=== PATIENT | male | born 1935 | race Caucasian/White ===

== ENCOUNTER 2018-01-03 21:44 | Inpatient (IN) | payer MEDICARE ==
[~2018-01-03] VITALS: Ht 182.9 cm; Wt 112.9 kg
[~2018-01-03 21:44] MED LIST: ADULT ASPIRIN81 MG PO; AMBIEN10 MG PO; AMLODIPINE BESYL5 MG PO; CARDURA1 MG PO; CATAPRES TTS TD; CEFTIN250 MG PO; CLONIDINE HCL0.3 MG PO; DEXAMETHASONE SOD PHOS INJ 4 MG/ML VIAL ONE; DOXAZOSIN MESYLA2 MG PO; FLOMAX0.4 MG PO; HCTZ PO; HYDRALAZINE HCL25 MG PO; HYDROCHLOROTHIA25 MG PO; LIDOCAINE HCL 2% LOCAL INJ 5 ML SDV VIAL INJ ONE; LOSARTAN POTAS100 MG PO; NEXIUM40 MG PO; NORCO 10-325 T1 EACH PO; PLAVIX75 MG PO; PROPOFOL IV EMULSION 10 MG/ML 20 ML VIAL ONE; PROSCAR5 MG PO; ROCURONIUM BROMIDE 10 MG/ML 5ML VIAL ONE; SEVOFLURANE INHAL SOLN 250 ML PEN BTL ONE; TYLENOL325 MG PO; WARFARIN SODIUM5 MG PO; Z.0.AMBIEN10 MG PO; Z.0.CARDURA1 MG PO; Z.0.COZAAR100 MG PO; Z.0.HYDRALAZINE HCL2 PO; Z.0.NEXIUM40 MG PO; Z.0.VICODIN 5-5001 E PO; Z.0.ZOCOR20 MG PO; ZOCOR20 MG PO
[2018-01-03] MEDS ORDERED: ACETAMINOPHEN 1000 MG/100 ML IV STA (21:54)
[2018-01-03] MEDS ORDERED: GABAPENTIN100 MG PO (22:20)
[2018-01-03] MEDS ORDERED: LASIX20 MG PO (22:21)
[2018-01-03] MEDS ORDERED: TIZANIDINE HCL4 MG PO (22:22)
[2018-01-03] MEDS ORDERED: ULTRAM50 MG PO (22:23)
[2018-01-03] MEDS ORDERED: NAMENDA10 MG PO (22:25)
[2018-01-03 22:29] LABS: BASOPHILS % 0.1 % (0.0-1.0); EOSINOPHILS % 0.1 % (0.0-6.0); HEMATOCRIT 41.1 % (38.2-49.6); HEMOGLOBIN 13.8 g/dL (14.0-18.0); LYMPHOCYTES # (AUTO) 0.3 (1.0-3.2); LYMPHOCYTES % 3.6 % (18.0-39.1); MEAN CORPUSCULAR HGB CONC 33.6 g/dL (31-35); MEAN CORPUSCULAR VOLUME 86.3 fL (81-99); MONOCYTES # (AUTO) 0.5 (0.2-0.8); MONOCYTES % 5.7 % (4.4-11.3); NEUTROPHILS # (AUTO) 8.1 (2.1-6.9); NEUTROPHILS % 90.4 % (38.7-80.0); PLATELET COUNT 126 x10e3/uL (140-360); RED BLOOD COUNT 4.76 x10e6/uL (4.3-5.7); RED CELL DISTRIBUTION WIDTH 14.4 % (11.7-14.4)
[2018-01-03 22:34] LABS: INR 3.55; PROTHROMBIN TIME 33.4 seconds (11.9-14.5)
[2018-01-03 22:35] LABS: PARTIAL THROMBOPLASTIN TIME 44.2 seconds (23.8-35.5)
[2018-01-03 22:42] LABS: ALBUMIN 3.5 g/dL (3.5-5.0); ANION GAP 13.9 mmol/L (8-16); CALCIUM 9.8 mg/dL (8.4-10.2); CREATININE, SERUM 1.23 mg/dL (0.72-1.25)
[2018-01-03 22:47] LABS: POTASSIUM 2.9 mmol/L (3.5-5.1)
[2018-01-03] MEDS ORDERED: KCL 20MEQ/.9 SOD CHL 1,000 ML IV ONE (23:00)
[2018-01-03 23:03] LABS: CLARITY,URINE SL CLOUDY (CLEAR); COLOR,URINE ORANGE (YELLOW)
[2018-01-03 23:04] LABS: BILIRUBIN,URINE 2+ (NEGATIVE); KETONES,URINE NEGATIVE (NEGATIVE); LEUKOCYTE ESTERASE ,URINE TRACE (NEGATIVE); NITRITE,URINE NEGATIVE (NEGATIVE); PROTEIN,URINE DIPSTICK 1+ (NEGATIVE); URINE UROBILINOGEN 4 mg/dL (0.2 - 1)
[2018-01-03 23:06] LABS: BACTERIA,URINE FEW /HPF; EPITHELIAL CELLS,URINE FEW /LPF; MUCUS,URINE MODERATE (RARE); RBC,URINE 0-5 /HPF (0-5)
[2018-01-04] VITALS (28 sets, daily range): BP systolic 105–136; BP diastolic 61–81
--- NOTE | 2018-01-04 00:06 | Diagnostic Imaging Report ---
EXAM: CT ABDOMEN AND PELVIS with IV CONTRAST DATE: 01/03/2018 9:52 PM Time stamp on Exam: 2317 hours INDICATION: Right-sided abdominal pain, fevers COMPARISON: None TECHNIQUE: The abdomen and pelvis were scanned using a multidetector helical scanner. Coronal and sagittal reformations were obtained. Routine protocol performed. IV Contrast: 100 cc Isovue-370 Oral Contrast: Water CTDIvol has been reviewed. It is below the limits set by the Radiation Protocol Committee (RPC). FINDINGS: LOWER THORAX: Small left pleural effusion and mild bibasilar atelectasis. LIVER: No masses BILIARY: Cholelithiasis with mild right upper quadrant inflammation. The common bile duct is dilated to 1.2 cm and there is mild intrahepatic biliary dilation. SPLEEN: No masses PANCREAS: No masses ADRENALS: No nodules KIDNEYS: Symmetric perfusion. No enhancing masses. No hydronephrosis. Simple cyst measuring 4.5 cm at the lateral aspect of the right kidney interpolar region. Simple cortical cyst measuring 1.7 cm posterior aspect of the left kidney interpolar region. There is a 5 mm stone in the left mid ureter resulting in minimal hydroureteronephrosis and perinephric fat stranding. GI TRACT: No distention, wall thickening or evidence of obstruction. Sigmoid colon diverticulosis without CT findings of acute diverticulitis. Normal appendix. VESSELS: Advanced atherosclerotic changes of the abdominal aorta without aneurysm. PERITONEUM/RETROPERITONEUM: Trace free pelvic fluid. LYMPH NODES: No lymphadenopathy REPRODUCTIVE ORGANS: The prostate is enlarged to 7.4 cm in transverse diameter. BLADDER: Decompressed by Kumar catheter. SOFT TISSUES: Unremarkable BONES: No suspicious bone lesions. IMPRESSION: Cholelithiasis with mild inflammation in the right upper quadrant. The common bile duct is dilated and there is mild intrahepatic biliary dilation. Findings suggests choledocholithiasis and possible acute cholecystitis. There is a 5 mm stone in the left mid ureter resulting in minimal hydroureteronephrosis. Signed by: Dr. Maryam Batres M.D. on 01/04/2018 12:03 AM
--- NOTE | 2018-01-04 00:08 | Diagnostic Imaging Report ---
EXAM: CHEST SINGLE (PORTABLE), AP 1 view INDICATION: Fever, shortness of breath COMPARISON: AP view of the chest December 15, 2014 FINDINGS: LINES/TUBES: Several position of left approach single lead cardiac device. LUNGS: Mild bibasilar atelectasis. PLEURA: Small left pleural effusion. HEART AND MEDIASTINUM: Stable appearance. Stable median sternotomy wires. BONES AND SOFT TISSUES: No acute findings. IMPRESSION: Small left pleural effusion with adjacent atelectasis. Signed by: Dr. Maryam Batres M.D. on 01/04/2018 12:05 AM
[2018-01-04] MEDS: PIPER-TAZ 3.375 GM 50 ML IV SCH ×4 (01:33→21:28)
[2018-01-04] MEDS: METRONIDAZOLE 500MG/NS 100ML 100 ML IV SCH ×5 (01:33→23:00)
[2018-01-04] MEDS: KCL 20MEQ/.9 SOD CHL 1,000 ML IV SCH ×2 (01:33→14:30)
[2018-01-04] MEDS ORDERED: SODIUM CHLORIDE 0.9% 250ML 250 ML ONE (03:23)
--- NOTE | 2018-01-04 05:28 | Consultation ---
DATE OF CONSULTATION: January 04, 2018 REFERRING PHYSICIANS: Dr. Stern/Dr. Garner. REASON FOR CONSULT: Atrial fibrillation and elevated INR, preoperative clearance. HISTORY OF PRESENT ILLNESS: Mr. Godinez is an 82-year-old gentleman with past medical history as listed below, who presented with complaints of abdominal pain and fever. Patient states that he started experiencing abdominal pain about 2 days back, going around his abdomen. He was a little nauseous and apparently had a fever. No vomiting or diarrhea. He was noted to have gallstones and scheduled to have possible EGD and ERCP. His INR was also elevated. He has had a history of pacemaker. Patient normally follows with Dr. Fernando Cantu. REVIEW OF SYMPTOMS CONSTITUTIONAL: Has fatigue and weakness. HEENT: No headache, blurring of vision, seizures, or syncope. CARDIOVASCULAR: No chest pain, dyspnea, orthopnea or PND. RESPIRATORY: No cough. Had fever. No expectoration. GI: Had abdominal pain and nausea. No vomiting or diarrhea. : No dysuria, frequency, or incontinence. ALLERGIES: LENORE INHIBITORS. MEDICATIONS: See list. PAST MEDICAL HISTORY 1. History of hypertension. 2. History of atrial fibrillation. 3. History of CAD and CABG. 4. History of nephrolithiasis. 5. History of CVA. 6. History of CHF. 7. History of dementia. PAST SURGICAL HISTORY 1. History of CABG. 2. History of permanent pacemaker insertion, apparently had it 2 or 3 years back here at [facility] by Dr. Cantu. SOCIAL HISTORY: Does not smoke or drink. FAMILY HISTORY: Noncontributory. PHYSICAL EXAMINATION GENERAL: Moderately built and nourished gentleman, awake, alert, not in any obvious distress. VITALS: Heart rate is 60, blood pressure 111/55, respiratory rate 16, and temperature is 97.9. HEENT: Atraumatic. NECK: No JVD, bruit, thyromegaly, or lymphadenopathy. CARDIOVASCULAR: First and second heart sounds heard. No murmurs, rubs, or gallops appreciated. CHEST: Decreased air entry at the bases. Midline surgical scar. No adventitious sounds appreciated. Pacemaker generator to left upper chest. ABDOMEN: Soft. Mild umbilical and right upper quadrant tenderness. EXTREMITIES: No edema. LABS: WBC is 8.9, hemoglobin is 13.8, hematocrit 41.1, and platelets are 126,000. Sodium is 138, potassium 2.9, chloride 101, bicarb is 26, BUN is 24, creatinine 1.2, and glucose 140. Lactic acid is 22.5. Total bilirubin is 5.0, AST is 133, ALT is 139, and alkaline phosphatase 112. CT abdomen and pelvis shows cholelithiasis with mild inflammation of right upper quadrant. Common bile duct is dilated. There is mild intrahepatic biliary dilatation, a 5-mm stone in the mid ureter. Chest x-ray: Small left pleural effusion and adjacent atelectasis. IMPRESSIONS 1. Abdominal pain/cholelithiasis. 2. Deranged liver function tests. 3. History of coronary artery bypass grafting. 4. History of permanent pacemaker insertion. 5. Atrial fibrillation. 7. Elevated international normalized ratio. 8. History of hypertension. 9. Nephrolithiasis. 10. History of dementia. 11. Hypokalemia. PLAN 1. Reportedly there are plans to do an ERCP. 2. He has been given FFPs to reverse his elevated INR. 3. Get EKG. 4. Get echocardiogram to assess LV function and valvular function. 5. Replace potassium. 6. Hold warfarin. 7. Further cardiac workup depending on clinical course. Discussed my impression, plan, and management with patient. As always, I appreciate and thank you very much for your referral. Job#: [id number]
[2018-01-04] MEDS ORDERED: FUROSEMIDE INJ 10 MG/ML 4 ML VIAL IV ONE (06:30)
[2018-01-04 07:08] LABS: BASOPHILS % 0.3 % (0.0-1.0); EOSINOPHILS % 0.1 % (0.0-6.0); HEMATOCRIT 34.3 % (38.2-49.6); HEMOGLOBIN 11.5 g/dL (14.0-18.0); LYMPHOCYTES # (AUTO) 0.6 (1.0-3.2); MEAN CORPUSCULAR HEMOGLOBIN 29.4 pg (28-32); MEAN CORPUSCULAR HGB CONC 33.5 g/dL (31-35); MEAN CORPUSCULAR VOLUME 87.7 fL (81-99); MONOCYTES # (AUTO) 0.5 (0.2-0.8); MONOCYTES % 6.6 % (4.4-11.3); NEUTROPHILS # (AUTO) 6.7 (2.1-6.9); NEUTROPHILS % 85.6 % (38.7-80.0); PLATELET COUNT 102 x10e3/uL (140-360); RED BLOOD COUNT 3.91 x10e6/uL (4.3-5.7); RED CELL DISTRIBUTION WIDTH 14.7 % (11.7-14.4)
--- NOTE | 2018-01-04 07:11 | Diagnostic Imaging Report ---
EXAM: XR CHEST 1 VIEW DATE: 01/04/2018 6:18 AM INDICATION: Shortness of breath COMPARISON: 01/03/2018 FINDINGS: Lines and Tubes: Sternotomy wires left chest wall pacemaker, stable. Heart and Mediastinum: Heart enlarged. Lungs and Pleura: Mild to moderate edema with small to moderate left effusion. Bones and Soft Tissues: No acute findings. IMPRESSION: 1. Volume overload with left effusion. Superimposed left basilar pneumonia possible. Signed by: Dr. Kofi Herbert MD on 01/04/2018 7:08 AM
[2018-01-04 07:43] LABS: BAND NEUTROPHILS % (MANUAL) 3 %; LYMPHOCYTES % (MANUAL) 9 % (19-48); MONOCYTES % (MANUAL) 7 % (3.4-9.0); NEUTROPHILS % (MANUAL) 81 % (40-74)
[2018-01-04 07:44] LABS: PLATELET ESTIMATE SLIGHTLY DECREASED; PLATELET MORPHOLOGY COMMENT NORMAL; RBC MORPHOLOGY COMMENT NORMAL
[2018-01-04 07:46] LABS: INR 1.93; PROTHROMBIN TIME 20.7 seconds (11.9-14.5)
[2018-01-04 07:47] LABS: PARTIAL THROMBOPLASTIN TIME 43.9 seconds (23.8-35.5)
[2018-01-04] MEDS ORDERED: PHYTONADIONE 10 MG/ML AMP IV STA (07:50)
[2018-01-04 07:55] LABS: ALANINE AMINOTRANSFERASE 111 IU/L (0-55); ALBUMIN 3.2 g/dL (3.5-5.0); ALKALINE PHOSPHATASE 95 IU/L (40-150); ANION GAP 12.2 mmol/L (8-16); BLOOD UREA NITROGEN 20 mg/dL (7-26); BUN/CREATININE RATIO 21 (6-25); CALCIUM 9.2 mg/dL (8.4-10.2); CARBON DIOXIDE 27 mmol/L (22-29); CHLORIDE 102 mmol/L (98-107); CREATININE, SERUM 0.95 mg/dL (0.72-1.25); EST GLOMERULAR FILTRATION RATE > 60 ML/MIN (60-); GLUCOSE 135 mg/dL (74-118); POTASSIUM 3.2 mmol/L (3.5-5.1); SODIUM 138 mmol/L (136-145)
[2018-01-04] MEDS ORDERED: ALBUTEROL/IPRATROPIUM 3 ML NEB ONE (08:00)
[2018-01-04] MEDS ORDERED: SODIUM CHLORIDE 0.9% 100 ML ONE (08:07)
[2018-01-04] MEDS: MORPHINE SULFATE 2 MG/ML SYR IV PRN ×2 (08:12→21:40)
[2018-01-04] MEDS: ONDANSETRON HCL INJ 2 MG/ML VIAL IV PRN ×2 (08:13→21:40)
[2018-01-04] MEDS ORDERED: SODIUM CHLORIDE 0.9% 100 ML 100 ML IV ONE (08:15)
[2018-01-04] MEDS ORDERED: POTASSIUM CHLORIDE 10MEQ/100ML 400 ML IV ONE (09:00)
[2018-01-04] MEDS ORDERED: IOPAMIDOL 300MG/ML 50ML INFUS..BTL IV ONE (09:11)
[2018-01-04] MEDS ORDERED: ACETAMINOPHEN 1000 MG/100 ML 100 ML IV ONE (09:46)
[2018-01-04] MEDS ORDERED: PHYTONADIONE 10MG/ML 20 MG in SODIUM CHLORIDE 0.9% 50ML 50 ML IV ONE (10:15)
[2018-01-04] MEDS ORDERED: ACETAMINOPHEN 1000 MG/100 ML IV STA (10:25)
[2018-01-04] MEDS ORDERED: GLUCAGON FOR INJ 1 MG VIAL ONE (10:48)
[2018-01-04] MEDS ORDERED: FENTANYL CITRATE/PF 100MCG/2 ML INJ ONE (12:46)
[2018-01-04] MEDS ORDERED: INDOMETHACIN 50 MG SUPP.RECT RC ONE (14:00)
--- NOTE | 2018-01-04 14:52 | Operative Report ---
DATE OF PROCEDURE: January 04, 2018 PROCEDURES PERFORMED: Endoscopic retrograde cholangiopancreatography with endoscopic retrograde sphincterotomy, balloon sweep x2, and stent insertion. REFERRING PHYSICIAN: Dr. Nakul Garner INDICATIONS FOR PROCEDURE: Ascending cholangitis. MEDICATION: Patient was done under general endotracheal anesthesia. Please see anesthesiologist note. PROCEDURE IN DETAIL: With the patient in the prone position, the flexible fiberoptic Olympus side-viewing scope was advanced all the way to the second portion of the duodenum. The ampulla was identified and pus was noted to be oozing out from the ampullary orifice. It was cannulated with ease, and a cholangiogram was carried out revealing filling defects in the distal common bile duct. An ERS was carried out in the usual fashion and the balloon sweep was carried out x2 with some thick bile and possibly some debris, but no obvious stones were noted. A size 10/5 biliary stent was then inserted in the common bile duct in the usual fashion. Position of stent was documented fluoroscopically. Patient tolerated the procedure well. IMPRESSION: 1. Pus oozing from ampullary orifice. 2. Filling defects in distal common bile duct on cholangiogram. 3. Endoscopic retrograde sphincterotomy with balloon sweep x2. 4. A size 10/5 biliary stent inserted in common bile duct. Positioning was documented fluoroscopically. Patient tolerated the procedure well. Findings discussed with Dr. Harrison Her. Job#: [id number] cc:MD NAKUL MALONE MD
[2018-01-04 17:59] LABS: POTASSIUM 3.2 mmol/L (3.5-5.1); SODIUM 143 mmol/L (136-145)
[2018-01-04 18:00] LABS: ANION GAP 15.2 mmol/L (8-16); BLOOD UREA NITROGEN 25 mg/dL (7-26); BUN/CREATININE RATIO 27 (6-25); CARBON DIOXIDE 26 mmol/L (22-29); CHLORIDE 105 mmol/L (98-107); CREATININE, SERUM 0.91 mg/dL (0.72-1.25); EST GLOMERULAR FILTRATION RATE > 60 ML/MIN (60-); GLUCOSE 150 mg/dL (74-118)
[2018-01-04] MEDS ORDERED: POTASSIUM CHLORIDE 20 MEQ TAB CR PO NR (18:05)
[2018-01-04] MEDS ORDERED: SODIUM CHLORIDE 0.9% 50ML 50 ML ONE (18:54)
[2018-01-04] MEDS ORDERED: IOPAMIDOL 370 MG/ML 200 ML INFUS..BTL INJ ONE (18:55)
[2018-01-05] VITALS (27 sets, daily range): BP systolic 105–151; BP diastolic 59–108
[2018-01-05] MEDS: KCL 20MEQ/.9 SOD CHL 1,000 ML IV SCH ×2 (01:08→09:15)
[2018-01-05] MEDS: ONDANSETRON HCL INJ 2 MG/ML VIAL IV PRN (02:41)
[2018-01-05] MEDS: MORPHINE SULFATE 2 MG/ML SYR IV PRN ×3 (02:41→16:44)
[2018-01-05] MEDS: HYDROMORPHONE 1MG/1ML INJ IV PRN ×2 (04:27→11:48)
[2018-01-05] MEDS: PIPER-TAZ 3.375 GM 50 ML IV SCH ×3 (05:17→21:29)
[2018-01-05 05:19] LABS: BASOPHILS % 0.1 % (0.0-1.0); HEMATOCRIT 35.8 % (38.2-49.6); HEMOGLOBIN 11.4 g/dL (14.0-18.0); LYMPHOCYTES # (AUTO) 0.7 (1.0-3.2); LYMPHOCYTES % 8.9 % (18.0-39.1); MEAN CORPUSCULAR HEMOGLOBIN 29.1 pg (28-32); MEAN CORPUSCULAR HGB CONC 31.8 g/dL (31-35); MEAN CORPUSCULAR VOLUME 91.3 fL (81-99); MONOCYTES # (AUTO) 0.8 (0.2-0.8); MONOCYTES % 9.7 % (4.4-11.3); NEUTROPHILS # (AUTO) 6.4 (2.1-6.9); NEUTROPHILS % 79.8 % (38.7-80.0); PLATELET COUNT 102 x10e3/uL (140-360); RED BLOOD COUNT 3.92 x10e6/uL (4.3-5.7)
[2018-01-05] MEDS: METRONIDAZOLE 500MG/NS 100ML 100 ML IV SCH ×3 (05:26→18:26)
[2018-01-05 05:44] LABS: ALANINE AMINOTRANSFERASE 95 IU/L (0-55); ALBUMIN 2.9 g/dL (3.5-5.0); ALBUMIN/GLOBULIN RATIO 0.8 (0.8-2.0); ALKALINE PHOSPHATASE 83 IU/L (40-150); AMYLASE 26 U/L (25-125); BLOOD UREA NITROGEN 30 mg/dL (7-26); BUN/CREATININE RATIO 31 (6-25); CARBON DIOXIDE 29 mmol/L (22-29); CHLORIDE 108 mmol/L (98-107); CREATININE, SERUM 0.98 mg/dL (0.72-1.25); EST GLOMERULAR FILTRATION RATE > 60 ML/MIN (60-); GLUCOSE 127 mg/dL (74-118); LIPASE 6 U/L (8-78); SODIUM 143 mmol/L (136-145)
[2018-01-05] MEDS ORDERED: TRAMADOL HCL 50 MG TAB PO PRN (08:15)
[2018-01-05] MEDS: PANTOPRAZOLE SOD 40 MG TABEC PO SCH (09:18)
[2018-01-05] MEDS: FUROSEMIDE 20 MG TAB PO SCH ×2 (09:18→16:44)
[2018-01-05] MEDS: HYDROCHLOROTHIAZIDE 25 MG TAB PO SCH (09:18)
[2018-01-05] MEDS: HYDRALAZINE HCL 25 MG TAB PO SCH ×2 (09:18→16:44)
[2018-01-05] MEDS: GABAPENTIN 100 MG CAP PO SCH ×3 (09:18→20:14)
[2018-01-05] MEDS: AMLODIPINE BESYLATE 10 MG TAB PO SCH (09:18)
--- NOTE | 2018-01-05 18:18 | Diagnostic Imaging Report ---
PROCEDURE:ERCP TO BE READ INDICATION:Ascending cholangitis COMPARISON:None. FINDINGS: Fluoroscopy provided during endoscopic retrograde cholangiopancreatogram. Filling defects visualized in distal common bile duct on cholangiogram. Biliary stent inserted in common bile duct. Fluoroscopy time: 1:02 min Cumulative dose: 49.27 mGy CONCLUSION: Filling defects visualized in distal common bile duct on cholangiogram. Biliary stent inserted in common bile duct. Please refer to the procedure report for full discussion and impression. Dictated by: Dennis Alva M.D. on 01/05/2018 at 18:24 Electronically approved by: Dennis Alva M.D. on 01/05/2018 at 18:24
[2018-01-05] MEDS: HYDROCODONE/APAP 10MG-325MG TAB PO PRN (18:33)
[2018-01-05] MEDS: ALBUTEROL SULF 0.083% NEB SOLN 3 ML NEB NEB PRN (19:30)
[2018-01-05] MEDS: DOXAZOSIN MESYLATE 2 MG TAB PO SCH (20:14)
[2018-01-06] VITALS (38 sets, daily range): BP systolic 116–153; BP diastolic 56–110
[2018-01-06] MEDS: METRONIDAZOLE 500MG/NS 100ML 100 ML IV SCH ×4 (00:05→17:19)
[2018-01-06] MEDS: HYDROMORPHONE 1MG/1ML INJ IV PRN (05:17)
[2018-01-06 05:49] LABS: BASOPHILS % 0.1 % (0.0-1.0); EOSINOPHILS % 0.1 % (0.0-6.0); HEMATOCRIT 36.7 % (38.2-49.6); HEMOGLOBIN 12.2 g/dL (14.0-18.0); LYMPHOCYTES # (AUTO) 0.4 (1.0-3.2); LYMPHOCYTES % 4.2 % (18.0-39.1); MEAN CORPUSCULAR HEMOGLOBIN 29.8 pg (28-32); MEAN CORPUSCULAR HGB CONC 33.2 g/dL (31-35); MEAN CORPUSCULAR VOLUME 89.5 fL (81-99); MONOCYTES % 9.4 % (4.4-11.3); NEUTROPHILS # (AUTO) 8.9 (2.1-6.9); NEUTROPHILS % 85.7 % (38.7-80.0); PLATELET COUNT 153 x10e3/uL (140-360); RED CELL DISTRIBUTION WIDTH 15.1 % (11.7-14.4)
[2018-01-06 06:08] LABS: ALANINE AMINOTRANSFERASE 69 IU/L (0-55); ALBUMIN 2.8 g/dL (3.5-5.0); ALBUMIN/GLOBULIN RATIO 0.8 (0.8-2.0); ALKALINE PHOSPHATASE 84 IU/L (40-150); ANION GAP 13.6 mmol/L (8-16); BILIRUBIN,DIRECT 0.8 mg/dL (0.0-0.5); BLOOD UREA NITROGEN 24 mg/dL (7-26); BUN/CREATININE RATIO 23 (6-25); CALCIUM 9.6 mg/dL (8.4-10.2); CARBON DIOXIDE 31 mmol/L (22-29); CHLORIDE 104 mmol/L (98-107); CREATININE, SERUM 1.03 mg/dL (0.72-1.25); EST GLOMERULAR FILTRATION RATE > 60 ML/MIN (60-); GLUCOSE 149 mg/dL (74-118); POTASSIUM 3.6 mmol/L (3.5-5.1); SODIUM 145 mmol/L (136-145)
[2018-01-06] MEDS: PIPER-TAZ 3.375 GM 50 ML IV SCH ×3 (07:06→22:25)
[2018-01-06] MEDS: ALBUTEROL SULF 0.083% NEB SOLN 3 ML NEB NEB PRN ×2 (07:10→17:20)
--- NOTE | 2018-01-06 07:45 | Progress Note ---
DATE: January 06, 2018 TIME: 7:15 a.m. OVERNIGHT: No events. No complaints. REVIEW OF SYSTEMS: Denies any dizziness, chest pain, shortness of breath, fever, chills, sweats, nausea, vomiting, diarrhea, leg pain, back pain. PHYSICAL EXAMINATION VITAL SIGNS: Reviewed. GENERAL: A tired-appearing man resting in bed. HEENT: Anicteric. CARDIOVASCULAR: Normal S1 and S2. LUNGS: Moderate breath sounds. ABDOMEN: Soft, nontender and nondistended. EXTREMITIES: No edema. SKIN: Dry. PSYCHIATRIC: Flat affect. LABS: Reviewed. MEDICATIONS: Reviewed. ASSESSMENT: This is an 82-year-old man with: 1. Atrial fibrillation with rapid ventricular response. 2. Biliary obstruction. 3. Coagulopathy. 4. Coronary artery disease. 5. Congestive heart failure which is chronic. 6. Dementia. 7. Cholelithiasis and acute cholecystitis. 8. A 5 mm left ureterolithiasis with minimal hydroureteronephrosis. 9. Urinary tract infection. PLAN 1. Continue rate control with medication regimen. 2. Continue antibiotics of Zosyn and Flagyl. 3. The patient receiving Lasix b.i.d. 4. Status post biliary stent in common bile duct. 5. Follow up labs this morning. 6. The patient's last INR was 1.93 on January 04, 2018. Will check INR today. 7. Critical care time more than 35 minutes. Job#: [id number] AR
[2018-01-06 07:50] LABS: INR 1.41; PROTHROMBIN TIME 16.2 seconds (11.9-14.5)
[2018-01-06] MEDS: FAMOTIDINE 20 MG/2 ML VIAL IV SCH (08:49)
[2018-01-06] MEDS: MORPHINE SULFATE INJ 4 MG/ML INJ IV PRN ×3 (08:50→22:26)
[2018-01-06] MEDS: PANTOPRAZOLE SOD 40 MG TABEC PO SCH (08:50)
[2018-01-06] MEDS: HYDRALAZINE HCL 25 MG TAB PO SCH ×2 (08:50→16:03)
[2018-01-06] MEDS: FUROSEMIDE 20 MG TAB PO SCH ×2 (08:50→16:03)
[2018-01-06] MEDS: AMLODIPINE BESYLATE 10 MG TAB PO SCH (08:50)
[2018-01-06] MEDS: GABAPENTIN 100 MG CAP PO SCH ×3 (08:50→20:21)
[2018-01-06] MEDS: HYDROCHLOROTHIAZIDE 25 MG TAB PO SCH (08:50)
--- NOTE | 2018-01-06 11:16 | Diagnostic Imaging Report ---
PROCEDURE: CHEST SINGLE (PORTABLE) COMPARISON: None. INDICATIONS: PLEURAL EFFUSION. SHORTNESS OF BREATH. EPIGASTRIC PAIN FINDINGS: The lungs are well-inflated. Small left pleural effusion with adjacent left lower lobe airspace disease, likely passive atelectasis. Similar finding to 01/04/2018. Stable cardiomediastinal contour with left subclavian approach implantable cardiac device body and lead. Unchanged interstitial air space opacities. No acute osseous abnormality. CONCLUSION: Stable interstitial pulmonary edema with small left pleural effusion and probable passive atelectasis of the left lower lobe. Dictated by: Fernando Enriquez M.D. on 01/06/2018 at 11:21 Electronically approved by: Fernando Enriquez M.D. on 01/06/2018 at 11:21
--- NOTE | 2018-01-06 14:54 | Diagnostic Imaging Report ---
PROCEDURE:US CHEST (INCL MEDIASTINUM) COMPARISON:None. INDICATIONS:Pleural Effusion FINDINGS/CONCLUSION: Woods scale ultrasound images of the right and left chest wall to evaluate for pleural effusions. There is a moderate left pleural effusion and a small right pleural effusion. Dictated by: Phu Lau M.D. on 01/06/2018 at 15:00 Electronically approved by: Phu Lau M.D. on 01/06/2018 at 15:00
--- NOTE | 2018-01-06 17:38 | Consultation ---
DATE OF CONSULTATION: January 06, 2018 PULMONARY/CRITICAL CARE CONSULTATION CONSULTING PHYSICIAN: Dr. Garner. CHIEF COMPLAINT: Left pleural effusion and history of COPD. HISTORY OF PRESENT ILLNESS: The patient is an 82-year-old man with a history of COPD and CHF. He came to the hospital with abdominal pain and was found to have a gallstone in the pancreatic duct with an acute pancreatitis. He received antibiotics and was n.p.o. and the inflammation has improved. He is tentatively scheduled for a cholecystectomy on . He complains of some increased shortness of breath and a repeat chest x-ray showed a new left pleural effusion. An ultrasound confirms pleural fluid. PAST MEDICAL HISTORY: Nephrolithiasis. Prior infections and pyelonephritis related to nephrolithiasis. COPD. Congestive heart failure. ALLERGIES: THERE ARE NO KNOWN DRUG ALLERGIES. FAMILY HISTORY: Noncontributory. SOCIAL HISTORY: The patient is not an active smoker or drinker. He is accompanied by his . REVIEW OF SYSTEMS: The patient has no headache or fevers. Patient has no neck pain. He has no throat pain. Cardiac exam reveals regular rate and rhythm with swollen glands. He does report some difficulty breathing and some wheezing. He did receive breathing treatments. He has no chest pain. He had abdominal pain that is improving. He has no leg edema. PHYSICAL EXAMINATION VITAL SIGNS: Stable. HEENT: No facial swelling or erythema. The oropharynx is normal. LYMPHATICS: No submandibular, cervical or supraclavicular adenopathy. CARDIAC EXAM: Regular rate and rhythm with normal S1 and S2. There are no murmurs or rubs. LUNGS: Auscultation of the lungs reveals decreased breath sounds on the left side. ABDOMEN: Still somewhat distended and tender. EXTREMITIES: No leg edema. IMPRESSION 1. New left pleural effusion secondary to pancreatitis. 2. History of COPD. 3. History of congestive heart failure. 4. Cholelithiasis. PLAN: The patient will have an ultrasound-guided thoracentesis with chemistry and cell count analysis. Continue bronchodilators. The patient is scheduled for a cholecystectomy on . Job#: [id number]
[2018-01-06] MEDS ORDERED: ACETAMINOPHEN 325 MG TAB PO PRN (18:00)
[2018-01-06] MEDS: DOXAZOSIN MESYLATE 2 MG TAB PO SCH (20:21)
[2018-01-07] VITALS (7 sets, daily range): BP systolic 129–160; BP diastolic 62–80
[2018-01-07] MEDS: METRONIDAZOLE 500MG/NS 100ML 100 ML IV SCH ×4 (00:45→17:09)
[2018-01-07] MEDS: MORPHINE SULFATE INJ 4 MG/ML INJ IV PRN (04:30)
[2018-01-07] MEDS: PIPER-TAZ 3.375 GM 50 ML IV SCH ×3 (05:59→21:50)
[2018-01-07 08:02] LABS: BASOPHILS % 0.1 % (0.0-1.0); HEMATOCRIT 38.5 % (38.2-49.6); HEMOGLOBIN 12.4 g/dL (14.0-18.0); LYMPHOCYTES # (AUTO) 0.6 (1.0-3.2); MEAN CORPUSCULAR HEMOGLOBIN 29.1 pg (28-32); MEAN CORPUSCULAR HGB CONC 32.2 g/dL (31-35); MEAN CORPUSCULAR VOLUME 90.4 fL (81-99); MONOCYTES # (AUTO) 0.9 (0.2-0.8); MONOCYTES % 8.2 % (4.4-11.3); NEUTROPHILS # (AUTO) 9.6 (2.1-6.9); NEUTROPHILS % 86.4 % (38.7-80.0); PLATELET COUNT 105 x10e3/uL (140-360); RED BLOOD COUNT 4.26 x10e6/uL (4.3-5.7); RED CELL DISTRIBUTION WIDTH 14.8 % (11.7-14.4)
[2018-01-07 08:16] LABS: ANION GAP 11.1 mmol/L (8-16); BLOOD UREA NITROGEN 20 mg/dL (7-26); BUN/CREATININE RATIO 22 (6-25); CALCIUM 9.8 mg/dL (8.4-10.2); CARBON DIOXIDE 36 mmol/L (22-29); CHLORIDE 100 mmol/L (98-107); CREATININE, SERUM 0.89 mg/dL (0.72-1.25); EST GLOMERULAR FILTRATION RATE > 60 ML/MIN (60-); GLUCOSE 139 mg/dL (74-118); POTASSIUM 3.1 mmol/L (3.5-5.1); SODIUM 144 mmol/L (136-145)
[2018-01-07] MEDS: GABAPENTIN 100 MG CAP PO SCH ×3 (09:22→20:19)
[2018-01-07] MEDS: HYDRALAZINE HCL 25 MG TAB PO SCH ×2 (09:22→17:08)
[2018-01-07] MEDS: AMLODIPINE BESYLATE 10 MG TAB PO SCH (09:22)
[2018-01-07] MEDS: FAMOTIDINE 20 MG/2 ML VIAL IV SCH (09:22)
[2018-01-07] MEDS: PANTOPRAZOLE SOD 40 MG TABEC PO SCH (09:22)
[2018-01-07 10:10] LABS: ALBUMIN 2.6 g/dL (3.5-5.0)
[2018-01-07] MEDS: FUROSEMIDE 20 MG TAB PO SCH ×2 (11:05→17:08)
[2018-01-07] MEDS: HYDROCHLOROTHIAZIDE 25 MG TAB PO SCH (11:05)
[2018-01-07] MEDS ORDERED: SODIUM CHLORIDE 0.9% 250ML 250 ML ONE (11:42)
[2018-01-07 11:43] LABS: BODY FLUID APPEARANCE SL.CLOUDY; BODY FLUID COLOR YELLOW; BODY FLUID TYPE PLEURAL
[2018-01-07 11:47] LABS: RBC,BODY FLUID 458 cells/uL; WBC,BODY FLUID 227 cells/uL
[2018-01-07 11:57] LABS: LYMPHOCYTES,BODY FLUID 61 %; MONO/MACROPHG,BODY FLUID 8 %; OTHER CELLS,BODY FLUID 5 %
[2018-01-07 11:58] LABS: NEUTROPHILS,BODY FLUID 26 %
--- NOTE | 2018-01-07 12:19 | Diagnostic Imaging Report ---
PROCEDURE: ULTRASOUND GUIDED THORACENTESIS COMPARISON: None. INDICATIONS:Left Pleural Effusion FINDINGS: After informed consent was obtained, the patient was placed in the sitting position and preliminary ultrasound of the posterior chest identified a safe route into the left pleural effusion. The overlying skin was prepped and draped in usual sterile fashion. Lidocaine 1% was used for local anesthesia. Under ultrasound guidance, a 5 FR sheathed centesis needle was advanced into the pleural fluid and 1,550 cc's were aspirated. The patient tolerated the procedure well and there were no immediate post-procedural complications. Specimen was sent to the laboratory. A post-thoracentesis chest radiograph will be obtained. CONCLUSION: Uncomplicated ultrasound-guided left thoracentesis with removal of 1,550 cc's of fluid. Jose Castaneda D.O. Dictated by: Jose Castaneda D.O. on 01/07/2018 at 12:24 Electronically approved by: Jose Castaneda D.O. on 01/07/2018 at 12:24
--- NOTE | 2018-01-07 12:22 | Diagnostic Imaging Report ---
PROCEDURE: CHEST XRAY POST PROCEDURE COMPARISON: [facility], DX, CHEST SINGLE (PORTABLE), 01/06/2018, 10:51. INDICATIONS: POST THORACENTESIS FINDINGS: LUNGS: Slight improvement in the pulmonary congestion. PLEURA: Small residual left pleural effusion; status post left thoracentesis. No pneumothorax. HEART \T\ MEDIASTINUM: The heart remains enlarged. Single lead cardiac device overlies the left chest. There are sternotomy wire sutures present. BONES \T\ SOFT TISSUES: No acute findings. CONCLUSION: 1. Cardiomegaly with slight improvement in the pulmonary congestion. 2. Decrease in the size of the left pleural effusion without pneumothorax. Jose Castaneda D.O. Dictated by: Jose Castaneda D.O. on 01/07/2018 at 11:50 Electronically approved by: Jose Castaneda D.O. on 01/07/2018 at 12:28
[2018-01-07] MEDS: ONDANSETRON HCL INJ 2 MG/ML VIAL IV PRN (13:09)
[2018-01-07] MEDS: HYDROCODONE/APAP 10MG-325MG TAB PO PRN (13:10)
[2018-01-07] MEDS ORDERED: POTASSIUM CHLORIDE 20 MEQ TAB CR PO ONE ×2 (13:15→16:00)
[2018-01-07] MEDS: DOXAZOSIN MESYLATE 2 MG TAB PO SCH (20:19)
[2018-01-08] VITALS (27 sets, daily range): BP systolic 98–147; BP diastolic 55–124
[2018-01-08] MEDS: METRONIDAZOLE 500MG/NS 100ML 100 ML IV SCH ×4 (00:09→17:30)
[2018-01-08] MEDS: PIPER-TAZ 3.375 GM 50 ML IV SCH ×3 (05:20→21:52)
[2018-01-08 05:22] LABS: BASOPHILS % 0.2 % (0.0-1.0); EOSINOPHILS % 0.1 % (0.0-6.0); HEMATOCRIT 37.9 % (38.2-49.6); HEMOGLOBIN 12.1 g/dL (14.0-18.0); LYMPHOCYTES # (AUTO) 0.7 (1.0-3.2); LYMPHOCYTES % 6.8 % (18.0-39.1); MEAN CORPUSCULAR HEMOGLOBIN 29.2 pg (28-32); MEAN CORPUSCULAR HGB CONC 31.9 g/dL (31-35); MEAN CORPUSCULAR VOLUME 91.3 fL (81-99); MONOCYTES # (AUTO) 0.8 (0.2-0.8); MONOCYTES % 7.7 % (4.4-11.3); NEUTROPHILS # (AUTO) 8.7 (2.1-6.9); NEUTROPHILS % 84.7 % (38.7-80.0); PLATELET COUNT 120 x10e3/uL (140-360); RED BLOOD COUNT 4.15 x10e6/uL (4.3-5.7); RED CELL DISTRIBUTION WIDTH 14.8 % (11.7-14.4)
[2018-01-08 05:42] LABS: INR 1.57; PROTHROMBIN TIME 17.6 seconds (11.9-14.5)
[2018-01-08 05:47] LABS: ALANINE AMINOTRANSFERASE 30 IU/L (0-55); ALBUMIN 2.3 g/dL (3.5-5.0); ALBUMIN/GLOBULIN RATIO 0.7 (0.8-2.0); ALKALINE PHOSPHATASE 60 IU/L (40-150); ANION GAP 13.1 mmol/L (8-16); BLOOD UREA NITROGEN 22 mg/dL (7-26); BUN/CREATININE RATIO 28 (6-25); CALCIUM 9.6 mg/dL (8.4-10.2); CARBON DIOXIDE 35 mmol/L (22-29); CHLORIDE 100 mmol/L (98-107); EST GLOMERULAR FILTRATION RATE > 60 ML/MIN (60-); GLUCOSE 124 mg/dL (74-118); POTASSIUM 3.1 mmol/L (3.5-5.1); SODIUM 145 mmol/L (136-145)
[2018-01-08] MEDS ORDERED: POTASSIUM CHLORIDE 20MEQ/100ML 100 ML IV STA (06:18)
[2018-01-08] MEDS ORDERED: POTASSIUM CHLORIDE 20MEQ/100ML 100 ML IV ONE (06:30)
[2018-01-08] MEDS: ALBUTEROL SULF 0.083% NEB SOLN 3 ML NEB NEB PRN (06:40)
[2018-01-08] MEDS: GABAPENTIN 100 MG CAP PO SCH ×3 (08:00→20:58)
[2018-01-08] MEDS: PANTOPRAZOLE SOD 40 MG TABEC PO SCH (08:00)
[2018-01-08] MEDS: AMLODIPINE BESYLATE 10 MG TAB PO SCH (08:00)
[2018-01-08] MEDS: FAMOTIDINE 20 MG/2 ML VIAL IV SCH (08:00)
[2018-01-08] MEDS: FUROSEMIDE 20 MG TAB PO SCH ×2 (08:00→16:11)
[2018-01-08] MEDS: HYDROCHLOROTHIAZIDE 25 MG TAB PO SCH (08:00)
[2018-01-08] MEDS: HYDRALAZINE HCL 25 MG TAB PO SCH ×2 (08:00→16:11)
[2018-01-08] MEDS ORDERED: BUPIVACAINE 0.25%/EPI 30ML SDV INJ ONE (10:11)
[2018-01-08] MEDS ORDERED: LEVOFLOXACIN 500MG/D5W 100ML 100 ML IV ONE (10:16)
[2018-01-08] MEDS ORDERED: FENTANYL CITRATE/PF 100MCG/2 ML INJ ONE ×2 (12:57→14:19)
[2018-01-08] MEDS ORDERED: MORPHINE SULFATE 2 MG/ML SYR ONE ×2 (13:24→13:38)
--- NOTE | 2018-01-08 13:37 | Operative Report ---
DATE OF PROCEDURE: January 08, 2018 PREOPERATIVE DIAGNOSIS: Status post endoscopic retrograde cholangiopancreatography and sphincterotomy and stenting of the common bile duct for ascending cholangitis secondary to choledocholithiasis, cholecystitis. POSTOPERATIVE DIAGNOSIS: Status post endoscopic retrograde cholangiopancreatography and sphincterotomy and stenting of the common bile duct for ascending cholangitis secondary to choledocholithiasis, cholecystitis gangrenous type. PROCEDURE PERFORMED: Laparoscopic cholecystectomy. ANESTHESIA: General endotracheal. ESTIMATED BLOOD LOSS: Minimal. DRAINS: None. COMPLICATIONS: None. INDICATIONS AND FINDINGS: The patient is a pleasant 82-year-old male admitted to Dr. Adalberto Garner' service with sepsis secondary to choledocholithiasis with ascending cholangitis. The patient underwent urgently and emergently ERCP with stenting of the common bile duct, and then he was medically optimized and stabilized for laparoscopic cholecystectomy. The day prior to surgery he underwent thoracentesis with aspiration of 1500 mL of fluid from the left chest. INTRAOPERATIVE FINDINGS: The patient had acute gangrenous type of cholecystitis. There were multiple adhesions of the omentum to the area of the right upper quadrant, probably from placement of a chest tube following open heart surgery. The gallbladder in the fundus was basically like butter, and he had several large stones. There was significant inflammation at the area of the hepatoduodenal ligament, but we were able to identify the anatomy, namely the cystic duct/cystic artery and the liver plate before we transected any structures. The common bile duct was identified 100%. DESCRIPTION OF PROCEDURE: With the patient lying on the operative table in the supine position after administration of general anesthesia, he was prepped and draped for laparoscopic cholecystectomy. The procedure was begun by establishing a pneumoperitoneum in the umbilical site. A stab wound was made in that location, and the saline drop test was performed. A pneumoperitoneum was insufflated to 15 mm of pressure and then the 10-11 mm trocar placed in that location. The patient was rotated to the left and with the head up, and a 10 mm subxiphoid port was placed. After we did that, we placed under direct vision with the 10-11 trocar in the umbilical port, 10-11 subxiphoid port, and then we placed three extra ports, one in the left upper quadrant, one in the right midclavicular line, and one in the right anterior axillary line using 5 mm trocars. Due to the inflammation and inflammatory changes, the 5th trocar was required. We began the dissection by aspirating and decompressing the gallbladder, which was tense. After we did that one, we grasped the gallbladder. The fundus of the gallbladder ruptured. We went ahead and then regrasped the gallbladder, suctioned out all the purulent material, and then began the dissection after we had lysed adhesions of the omentum to the anterior abdominal wall. After we did that, we went ahead and identified the cystic duct high in the neck of the gallbladder, and the junction with the common bile duct was also seen. We also identified the cystic artery. At this point, we transected the cystic duct and the cystic artery between titanium clips and then we continued the dissection with combination of traction and countertraction, electrocautery as well as hydrodissection and blunt dissection until we detached the gallbladder and placed it in an endobag and removed it. At this point, we irrigated the right upper quadrant, gallbladder bed fossa of all the fluid. We went ahead and secured the closure of the gallbladder by placing an Endoloop and an extra two 10 mm clips for a total of three as well as the Endoloop to secure the closure. Then we inspected the operative field. There was no obvious bleeding. There was no bile leak or any bowel injury that was apparent to me. We at this point placed a 10 mm flat Al-Carmichael drain in the gallbladder bed fossa, brought it out through a stab wound through the right anterior axillary line trocar, secured it there with 3-0 silk, released the pneumoperitoneum. The umbilical wound was closed with two of the 0 Vicryl stitches, and then the pneumoperitoneum was released, the drain was connected to self-suction, and closed the subcutaneous tissue in that location as well as the subxiphoid port with 3-0 Vicryl, and the skin of all the ports was closed using chapito. Marcaine 0.25% with epinephrine was given as local block at the end of the case. The patient tolerated the procedure well, was taken to the recovery room in stable condition. Job#: [id number] EV
[2018-01-08] MEDS: HYDROMORPHONE 1MG/1ML INJ IV PRN ×2 (16:12→21:57)
[2018-01-08] MEDS ORDERED: PROPOFOL IV EMULSION 10 MG/ML 20 ML VIAL ONE (17:34)
[2018-01-08] MEDS ORDERED: ROCURONIUM BROMIDE 10 MG/ML 5ML VIAL ONE (17:34)
[2018-01-08] MEDS ORDERED: NEOSTIGMINE 5 MG/5ML SYR ONE (17:34)
[2018-01-08] MEDS ORDERED: GLYCOPYRROLATE INJ 1MG/ 5 ML SYR ONE (17:34)
[2018-01-08] MEDS ORDERED: ONDANSETRON HCL INJ 2 MG/ML VIAL ONE (17:34)
[2018-01-08] MEDS ORDERED: DEXAMETHASONE SOD PHOS INJ 4 MG/ML VIAL ONE (17:34)
[2018-01-08] MEDS ORDERED: LIDOCAINE HCL 2% LOCAL INJ 5 ML SDV VIAL INJ ONE (17:34)
[2018-01-08] MEDS ORDERED: SEVOFLURANE INHAL SOLN 250 ML PEN BTL ONE (17:34)
[2018-01-08] MEDS: MORPHINE SULFATE INJ 4 MG/ML INJ IV PRN (18:39)
[2018-01-08] MEDS: LACTATED RINGER'S 1,000 ML IV SCH (20:12)
[2018-01-08] MEDS: DOXAZOSIN MESYLATE 2 MG TAB PO SCH (21:01)
[2018-01-09] VITALS (40 sets, daily range): BP systolic 118–154; BP diastolic 58–95
[2018-01-09] MEDS: METRONIDAZOLE 500MG/NS 100ML 100 ML IV SCH ×4 (00:08→20:00)
[2018-01-09] MEDS: HYDROMORPHONE 1MG/1ML INJ IV PRN (04:32)
[2018-01-09 04:49] LABS: BASOPHILS % 0.1 % (0.0-1.0); HEMATOCRIT 36.4 % (38.2-49.6); HEMOGLOBIN 11.6 g/dL (14.0-18.0); LYMPHOCYTES # (AUTO) 0.7 (1.0-3.2); MEAN CORPUSCULAR HEMOGLOBIN 29.3 pg (28-32); MEAN CORPUSCULAR HGB CONC 31.9 g/dL (31-35); MEAN CORPUSCULAR VOLUME 91.9 fL (81-99); MONOCYTES # (AUTO) 0.9 (0.2-0.8); MONOCYTES % 12.3 % (4.4-11.3); NEUTROPHILS # (AUTO) 5.9 (2.1-6.9); NEUTROPHILS % 76.8 % (38.7-80.0); PLATELET COUNT 117 x10e3/uL (140-360); RED BLOOD COUNT 3.96 x10e6/uL (4.3-5.7); RED CELL DISTRIBUTION WIDTH 14.9 % (11.7-14.4)
[2018-01-09 05:18] LABS: ALANINE AMINOTRANSFERASE 30 IU/L (0-55); ALBUMIN 2.1 g/dL (3.5-5.0); ALBUMIN/GLOBULIN RATIO 0.6 (0.8-2.0); ALKALINE PHOSPHATASE 52 IU/L (40-150); BLOOD UREA NITROGEN 24 mg/dL (7-26); BUN/CREATININE RATIO 32 (6-25); CALCIUM 9.2 mg/dL (8.4-10.2); CARBON DIOXIDE 36 mmol/L (22-29); CHLORIDE 102 mmol/L (98-107); CREATININE, SERUM 0.76 mg/dL (0.72-1.25); EST GLOMERULAR FILTRATION RATE > 60 ML/MIN (60-); GLUCOSE 141 mg/dL (74-118); SODIUM 143 mmol/L (136-145)
[2018-01-09] MEDS: PIPER-TAZ 3.375 GM 50 ML IV SCH ×3 (05:32→21:37)
--- NOTE | 2018-01-09 06:25 | Diagnostic Imaging Report ---
CHEST SINGLE (PORTABLE), 01/09/2018 6:30 AM Technique: CHEST SINGLE (PORTABLE) Comparison: 01/07/2018 Clinical history: Pleural effusion Findings: See Impression Impression: 1. Lines/Tubes: Stable left chest wall pacer. Median sternotomy wires. 2. Stable enlarged cardiac silhouette. 3. Increased edema with bibasilar atelectasis and small to moderate layering effusions. Signed by: Dr Kiara Reese MD on 01/09/2018 6:22 AM
[2018-01-09] MEDS ORDERED: POTASSIUM CHLORIDE 20MEQ/100ML 200 ML IV ONE (06:45)
[2018-01-09] MEDS: POTASSIUM CHLORIDE 20MEQ/100ML 100 ML IV SCH ×2 (06:52→08:05)
[2018-01-09] MEDS: MORPHINE SULFATE INJ 4 MG/ML INJ IV PRN (08:09)
[2018-01-09] MEDS: GABAPENTIN 100 MG CAP PO SCH ×3 (08:44→20:13)
[2018-01-09] MEDS: FAMOTIDINE 20 MG/2 ML VIAL IV SCH (08:44)
[2018-01-09] MEDS: FUROSEMIDE 20 MG TAB PO SCH ×2 (08:44→17:00)
[2018-01-09] MEDS: PANTOPRAZOLE SOD 40 MG TABEC PO SCH (08:44)
[2018-01-09] MEDS: AMLODIPINE BESYLATE 10 MG TAB PO SCH (08:44)
[2018-01-09] MEDS: HYDROCHLOROTHIAZIDE 25 MG TAB PO SCH (08:44)
[2018-01-09] MEDS: HYDRALAZINE HCL 25 MG TAB PO SCH ×2 (08:44→17:00)
[2018-01-09] MEDS: LACTATED RINGER'S 1,000 ML IV SCH ×2 (10:48→20:44)
[2018-01-09] MEDS: HYDROCODONE/APAP 10MG-325MG TAB PO PRN (11:36)
[2018-01-09] MEDS: ALBUTEROL SULF 0.083% NEB SOLN 3 ML NEB NEB PRN (19:32)
[2018-01-09] MEDS: DOXAZOSIN MESYLATE 2 MG TAB PO SCH (20:10)
[2018-01-09] MEDS: HYDROCODONE/APAP 7.5MG-325MG 1 EA TAB PO PRN (20:13)
[2018-01-10] VITALS (7 sets, daily range): BP systolic 129–180; BP diastolic 64–88
[2018-01-10] MEDS: METRONIDAZOLE 500MG/NS 100ML 100 ML IV SCH ×5 (01:00→23:32)
[2018-01-10 05:13] LABS: BASOPHILS % 0.2 % (0.0-1.0); EOSINOPHILS % 0.6 % (0.0-6.0); HEMOGLOBIN 11.4 g/dL (14.0-18.0); LYMPHOCYTES # (AUTO) 0.9 (1.0-3.2); LYMPHOCYTES % 13.5 % (18.0-39.1); MEAN CORPUSCULAR HEMOGLOBIN 29.2 pg (28-32); MEAN CORPUSCULAR HGB CONC 31.7 g/dL (31-35); MEAN CORPUSCULAR VOLUME 92.3 fL (81-99); MONOCYTES # (AUTO) 0.7 (0.2-0.8); MONOCYTES % 11.8 % (4.4-11.3); NEUTROPHILS # (AUTO) 4.6 (2.1-6.9); NEUTROPHILS % 72.9 % (38.7-80.0); PLATELET COUNT 131 x10e3/uL (140-360); RED CELL DISTRIBUTION WIDTH 14.9 % (11.7-14.4)
[2018-01-10 05:31] LABS: ALANINE AMINOTRANSFERASE 25 IU/L (0-55); ALBUMIN 2.1 g/dL (3.5-5.0); ALBUMIN/GLOBULIN RATIO 0.6 (0.8-2.0); ALKALINE PHOSPHATASE 46 IU/L (40-150); ANION GAP 9.9 mmol/L (8-16); BLOOD UREA NITROGEN 21 mg/dL (7-26); BUN/CREATININE RATIO 30 (6-25); CALCIUM 9.1 mg/dL (8.4-10.2); CARBON DIOXIDE 37 mmol/L (22-29); CHLORIDE 96 mmol/L (98-107); EST GLOMERULAR FILTRATION RATE > 60 ML/MIN (60-); GLUCOSE 111 mg/dL (74-118); SODIUM 140 mmol/L (136-145)
[2018-01-10 05:33] LABS: POTASSIUM 2.9 mmol/L (3.5-5.1)
[2018-01-10] MEDS: PIPER-TAZ 3.375 GM 50 ML IV SCH ×3 (05:34→22:00)
[2018-01-10] MEDS: HYDROCODONE/APAP 7.5MG-325MG 1 EA TAB PO PRN (07:30)
[2018-01-10] MEDS: PANTOPRAZOLE SOD 40 MG TABEC PO SCH (08:45)
[2018-01-10] MEDS: HYDRALAZINE HCL 25 MG TAB PO SCH ×2 (08:45→17:00)
[2018-01-10] MEDS: FAMOTIDINE 20 MG/2 ML VIAL IV SCH (08:45)
[2018-01-10] MEDS: FUROSEMIDE 20 MG TAB PO SCH ×2 (08:45→17:00)
[2018-01-10] MEDS: HYDROCHLOROTHIAZIDE 25 MG TAB PO SCH (08:45)
[2018-01-10] MEDS: AMLODIPINE BESYLATE 10 MG TAB PO SCH (08:45)
[2018-01-10] MEDS: GABAPENTIN 100 MG CAP PO SCH ×3 (08:45→21:00)
[2018-01-10] MEDS: LACTATED RINGER'S 1,000 ML IV SCH ×2 (09:15→21:45)
[2018-01-10] MEDS ORDERED: POTASSIUM CHLORIDE 20 MEQ TAB CR PO ONE ×2 (10:00→12:00)
[2018-01-10] MEDS: HYDROMORPHONE 1MG/1ML INJ IV PRN ×2 (13:53→23:24)
[2018-01-10] MEDS: DOXAZOSIN MESYLATE 2 MG TAB PO SCH (21:00)
[2018-01-10] MEDS: ONDANSETRON HCL INJ 2 MG/ML VIAL IV PRN (23:24)
[2018-01-11] VITALS: BP 144/92
[2018-01-11] MEDS: HYDROCODONE/APAP 7.5MG-325MG 1 EA TAB PO PRN ×2 (00:07→22:04)
[2018-01-11] MEDS ORDERED: POTASSIUM CHLORIDE 20MEQ/100ML 200 ML IV ONE (01:00)
[2018-01-11 04:00] VITALS: BP 151/65
[2018-01-11 07:39] LABS: BASOPHILS % 0.3 % (0.0-1.0); EOSINOPHILS # (AUTO) 0.1 (0.0-0.4); EOSINOPHILS % 1.1 % (0.0-6.0); HEMOGLOBIN 11.7 g/dL (14.0-18.0); LYMPHOCYTES # (AUTO) 0.9 (1.0-3.2); LYMPHOCYTES % 12.3 % (18.0-39.1); MEAN CORPUSCULAR HEMOGLOBIN 29.4 pg (28-32); MEAN CORPUSCULAR HGB CONC 32.5 g/dL (31-35); MEAN CORPUSCULAR VOLUME 90.5 fL (81-99); MONOCYTES # (AUTO) 0.6 (0.2-0.8); MONOCYTES % 8.5 % (4.4-11.3); NEUTROPHILS # (AUTO) 5.5 (2.1-6.9); NEUTROPHILS % 77.2 % (38.7-80.0); PLATELET COUNT 136 x10e3/uL (140-360); RED BLOOD COUNT 3.98 x10e6/uL (4.3-5.7); RED CELL DISTRIBUTION WIDTH 14.7 % (11.7-14.4)
[2018-01-11 07:56] LABS: ALANINE AMINOTRANSFERASE 20 IU/L (0-55); ALBUMIN/GLOBULIN RATIO 0.6 (0.8-2.0); ALKALINE PHOSPHATASE 47 IU/L (40-150); ANION GAP 9.2 mmol/L (8-16); BLOOD UREA NITROGEN 15 mg/dL (7-26); BUN/CREATININE RATIO 21 (6-25); CALCIUM 9.1 mg/dL (8.4-10.2); CARBON DIOXIDE 38 mmol/L (22-29); CHLORIDE 95 mmol/L (98-107); CREATININE, SERUM 0.72 mg/dL (0.72-1.25); EST GLOMERULAR FILTRATION RATE > 60 ML/MIN (60-); GLUCOSE 114 mg/dL (74-118); POTASSIUM 3.2 mmol/L (3.5-5.1); SODIUM 139 mmol/L (136-145)
[2018-01-11 08:29] VITALS: BP 129/71
[2018-01-11] MEDS: PANTOPRAZOLE SOD 40 MG TABEC PO SCH (08:30)
[2018-01-11] MEDS: FUROSEMIDE 20 MG TAB PO SCH ×2 (08:30→17:00)
[2018-01-11] MEDS: HYDRALAZINE HCL 25 MG TAB PO SCH ×2 (08:30→17:00)
[2018-01-11] MEDS: AMLODIPINE BESYLATE 10 MG TAB PO SCH (08:30)
[2018-01-11] MEDS: HYDROCHLOROTHIAZIDE 25 MG TAB PO SCH (08:30)
[2018-01-11] MEDS: FAMOTIDINE 20 MG/2 ML VIAL IV SCH (08:30)
[2018-01-11] MEDS: GABAPENTIN 100 MG CAP PO SCH ×3 (08:30→21:00)
[2018-01-11] MEDS: LACTATED RINGER'S 1,000 ML IV SCH ×2 (10:15→22:45)
--- NOTE | 2018-01-11 10:33 | Progress Note ---
DATE: January 07, 2018 MEDICINE PROGRESS NOTE TIME OF SERVICE: 8 a.m. SUBJECTIVE: Overnight, no events. REVIEW OF SYSTEMS: Denies any dizziness, chest pain. VITAL SIGNS: Reviewed. PHYSICAL EXAMINATION GENERAL APPEARANCE: A tired-appearing man resting in bed. HEENT: Anicteric. CARDIOVASCULAR: Normal S1/S2. LUNGS: Reduced breath sounds. ABDOMEN: Soft, nontender. EXTREMITIES: No edema. SKIN: Dry. PSYCHIATRIC: Flat affect. LABS: Reviewed. MEDICATIONS: Reviewed. ASSESSMENT: A 82-year-old man. 1. Atrial fibrillation with rapid ventricular response. 2. Biliary obstruction. 3. Coagulopathy. 4. Coronary artery disease. 5. Acute exacerbation of systolic congestive heart failure. 6. Dementia. 7. Cholelithiasis and acute cholecystitis. 8. A 5 mm left ureterolithiasis with minimal hydronephrosis. 9. Urinary tract infection. 10. Bilateral pleural effusions. PLAN 1. Continue diuresis. 2. Thoracentesis. 3. Antibiotics. 4. Monitor closely. 5. Will need laparoscopic cholecystectomy. Job#: [id number] EV
--- NOTE | 2018-01-11 10:34 | Progress Note ---
DATE: January 08, 2018 TIME: 7:00 a.m. OVERNIGHT: Patient underwent thoracentesis. REVIEW OF SYSTEMS: Denies any dizziness. PHYSICAL EXAMINATION: VITAL SIGNS: Reviewed. GENERAL APPEARANCE: Tired-appearing man resting in bed. HEENT: Anicteric. CARDIOVASCULAR: Normal S1 and S2. LUNGS: Improved breath sounds. ABDOMEN: Soft, nontender. EXTREMITIES: No edema. SKIN: Dry. PSYCHIATRIC: Flat affect. LABS: Reviewed. MEDICATIONS: Reviewed. ASSESSMENT: An 82-year-old man. 1. Atrial fibrillation with rapid ventricular response. 2. Biliary obstruction. 3. Coagulopathy. 4. Coronary artery disease. 5. Acute exacerbation of systolic congestive heart failure. 6. Dementia. 7. Cholelithiasis with acute cholecystitis. 8. 5-mm left ureterolithiasis and mild hydronephrosis. 9. Bilateral pleural effusions. PLAN: 1. He is status post thoracentesis. 2. Continue oxygen support. 3. Continue antibiotics. 4. Plan for laparoscopic cholecystectomy. Job#: [id number]
--- NOTE | 2018-01-11 10:41 | Progress Note ---
DATE: January 09, 2018 MEDICINE PROGRESS NOTE TIME OF SERVICE: 7:15 a.m. SUBJECTIVE: Overnight there were no events. REVIEW OF SYSTEMS: Denies any dizziness, chest pain, shortness of breath, fever, chills, sweats, nausea, vomiting, diarrhea. VITAL SIGNS: Reviewed. PHYSICAL EXAMINATION GENERAL APPEARANCE: A tired-appearing man resting in bed. HEENT: Anicteric. CARDIOVASCULAR: Normal S1/S2. LUNGS: Moderate breath sounds. ABDOMEN: Soft, nondistended. He has a laparoscopic dressing in place. He has a RANGEL drain in place. EXTREMITIES: No edema. SKIN: Dry. PSYCHIATRIC: Flat affect. LABS: Reviewed. MEDICATIONS: Reviewed. ASSESSMENT: An 82-year-old man. 1. Atrial fibrillation with rapid ventricular response. 2. Biliary obstruction. 3. Coagulopathy. 4. Coronary artery disease. 5. Congestive heart failure which is acute exacerbation of systolic congestive heart failure. 6. Dementia. 7. Cholelithiasis with acute cholecystitis, status post laparoscopic cholecystectomy. 8. A 5 mm left ureterolithiasis with minimal hydronephrosis. 9. Bilateral pleural effusions, status post thoracentesis. PLAN 1. RANGEL drain in place. 2. Continue antibiotics. 3. Continue pain control. 4. Oxygen support. 5. Replace potassium. 6. Follow up labs. Job#: [id number] REYNA
--- NOTE | 2018-01-11 10:41 | Progress Note ---
DATE: January 10, 2018 TIME: 4:00 p.m. OVERNIGHT: No events. REVIEW OF SYSTEMS: Denies any dizziness, chest pain, shortness of breath, fever, chills, sweats, nausea, vomiting, or diarrhea. PHYSICAL EXAMINATION: VITAL SIGNS: Have been reviewed. GENERAL APPEARANCE: Tired-appearing man resting in bed. HEENT: Anicteric. Pupils respond to light. CARDIOVASCULAR: Normal S1 and S2. LUNGS: Moderate breath sounds. ABDOMEN: Soft. He has RANGEL drain in the right abdomen. EXTREMITIES: No edema. SKIN: Dry. PSYCHIATRIC: Flat affect. LABS: Reviewed. MEDICATIONS: Reviewed. ASSESSMENT: This is 82-year-old man. 1. Atrial fibrillation with rapid ventricular response. 2. Biliary obstruction, status post stent placement to the common bile duct. 3. Coagulopathy. 4. Coronary artery disease. 5. Acute exacerbation of systolic congestive heart failure. 6. Dementia. 7. Cholelithiasis and acute cholecystitis, status post laparoscopic cholecystectomy. 8. 5-mm left ureterolithiasis and minimal hydronephrosis. 9. Urinary tract infection. PLAN: 1. Continue antibiotics. 2. Continue management of RANGEL drain per surgical team. 3. Continue physical therapy. 4. Monitor fluid status. 5. Replace potassium. 6. Follow up labs. 7. Discharge planning once RANGEL drain is removed. Job#: [id number]
[2018-01-11 12:05] VITALS: BP 146/65
[2018-01-11] MEDS ORDERED: POTASSIUM CHLORIDE 20 MEQ TAB CR PO ONE ×2 (12:30→14:30)
[2018-01-11] MEDS: PIPER-TAZ 3.375 GM 50 ML IV SCH ×2 (14:00→22:00)
--- NOTE | 2018-01-11 14:59 | Progress Note ---
DATE: January 11, 2018 MEDICINE PROGRESS NOTE TIME OF SERVICE: 1310. OVERNIGHT: No acute events. REVIEW OF SYSTEMS: Patient poor historian. Denies chest pains or shortness of breath. Denies nausea or vomiting, diarrhea, dizziness, blurry vision, fever, chills or sweats. Does report diffuse abdominal tenderness. OBJECTIVE VITAL SIGNS: T 98.1, P 51, BP 146/65, SpO2 95% on O2 at 2 liters. GENERAL APPEARANCE: This is a very tired-appearing elderly man resting supine in bed. HEENT: Normocephalic without sinus tenderness. Arcus senilis noted. PERRLA. Nares patent. Oral mucosa moist and intact. Trachea midline without JVD. CARDIOVASCULAR: S1 and S2 without clicks, murmurs or rubs. LUNGS: Bilateral breath sounds with faint rales that clear upon cough. ABDOMEN: Soft. Right flank RANGEL and laparoscopic site secured with tape. Tender to deep palpation. EXTREMITIES: No edema. Moves all 4. SKIN: Dry. PSYCHIATRIC: Flat affect. LABORATORY VALUES: Sodium 139, potassium 3.2, chloride 95, CO2 38, BUN 15, creatinine 0.72. WBC 7.9. H\T\H 11.7 and 36. Platelet count this a.m. 136. MEDICATIONS 1. Lasix 20 mg p.o. b.i.d. 2. Pepcid 20 mg IV daily. 3. Hydrochlorothiazide 25 mg p.o. daily. 4. Hydralazine 25 mg p.o. b.i.d. 5. Gabapentin 100 mg t.i.d. by mouth. 6. Protonix 40 mg IV daily. 7. Amlodipine 10 mg p.o. daily. 8. PRN Sterling 7.5. 9. PRN q.6 Dilaudid. 10. PRN Zofran. 11. Cardura 8 mg nightly. 12. Albuterol p.r.n. nebulizers. 13. PRN morphine. 14. PRN Tylenol. 15. PRN Ultram. 16. LR at 80 mL per hour. 17. Potassium chloride replaced daily, scheduled p.o. to begin tomorrow. ASSESSMENT AND PLAN: This is an 82-year-old man with 1. Atrial fibrillation with rapid ventricular response. Continue telemetry monitoring. Heart rate less than 60 noted per vital signs. 2. Biliary obstruction, status post stent placement to the common bile duct. Continue management of RANGEL drain per surgical team. 3. Coagulopathy. Continue to monitor. 4. Coronary artery disease. 5. Acute exacerbation of systolic congestive heart failure. Continue with diuretics and potassium replacement. Monitor fluid status. 6. Dementia. 7. Cholelithiasis and acute cholecystitis, status post laparoscopic cholecystectomy. Per GI recommendations. Surgical team consult. 8. A 5 mm left ureterolithiasis and minimal hydronephrosis. 9. Urinary tract infection. Will follow up labs and begin oral daily, p.o. potassium and monitor. Discharge planning once RANGEL drain is removed and continue IV antibiotics with surgical consent. Dictated by: Gia Watson NP Job#: [id number]
[2018-01-11] MEDS: METRONIDAZOLE 500MG/NS 100ML 100 ML IV SCH ×2 (15:00→22:00)
[2018-01-11 16:00] VITALS: BP 133/67
[2018-01-11 20:00] VITALS: BP 144/72
[2018-01-11] MEDS: DOXAZOSIN MESYLATE 2 MG TAB PO SCH (21:00)
[2018-01-12] VITALS: BP 146/84
[2018-01-12 04:00] VITALS: BP 144/81
[2018-01-12] MEDS: PIPER-TAZ 3.375 GM 50 ML IV SCH ×2 (05:04→13:33)
[2018-01-12] MEDS: METRONIDAZOLE 500MG/NS 100ML 100 ML IV SCH ×2 (05:04→15:31)
[2018-01-12] MEDS: MORPHINE SULFATE INJ 4 MG/ML INJ IV PRN ×2 (05:28→13:47)
[2018-01-12 06:05] LABS: BASOPHILS % 0.2 % (0.0-1.0); EOSINOPHILS # (AUTO) 0.1 (0.0-0.4); EOSINOPHILS % 0.8 % (0.0-6.0); HEMATOCRIT 36.8 % (38.2-49.6); HEMOGLOBIN 12.1 g/dL (14.0-18.0); LYMPHOCYTES # (AUTO) 0.9 (1.0-3.2); LYMPHOCYTES % 11.3 % (18.0-39.1); MEAN CORPUSCULAR HEMOGLOBIN 29.4 pg (28-32); MEAN CORPUSCULAR HGB CONC 32.9 g/dL (31-35); MEAN CORPUSCULAR VOLUME 89.5 fL (81-99); MONOCYTES # (AUTO) 0.6 (0.2-0.8); MONOCYTES % 7.3 % (4.4-11.3); NEUTROPHILS # (AUTO) 6.5 (2.1-6.9); NEUTROPHILS % 79.4 % (38.7-80.0); PLATELET COUNT 145 x10e3/uL (140-360); RED BLOOD COUNT 4.11 x10e6/uL (4.3-5.7); RED CELL DISTRIBUTION WIDTH 14.4 % (11.7-14.4)
[2018-01-12 06:19] LABS: ALANINE AMINOTRANSFERASE 17 IU/L (0-55); ALBUMIN 2.2 g/dL (3.5-5.0); ALBUMIN/GLOBULIN RATIO 0.7 (0.8-2.0); ALKALINE PHOSPHATASE 50 IU/L (40-150); ANION GAP 11.5 mmol/L (8-16); BLOOD UREA NITROGEN 11 mg/dL (7-26); BUN/CREATININE RATIO 15 (6-25); CARBON DIOXIDE 35 mmol/L (22-29); CHLORIDE 95 mmol/L (98-107); CREATININE, SERUM 0.75 mg/dL (0.72-1.25); EST GLOMERULAR FILTRATION RATE > 60 ML/MIN (60-); GLUCOSE 155 mg/dL (74-118); POTASSIUM 3.5 mmol/L (3.5-5.1); SODIUM 138 mmol/L (136-145)
[2018-01-12 07:20] VITALS: BP 133/73
[2018-01-12 07:54] VITALS: BP 117/75
[2018-01-12] MEDS ORDERED: POTASSIUM CHLORIDE 10 MEQ TABCR PO SCH (09:00)
[2018-01-12] MEDS: FUROSEMIDE 20 MG TAB PO SCH ×2 (09:03→17:29)
[2018-01-12] MEDS: HYDROCHLOROTHIAZIDE 25 MG TAB PO SCH (09:03)
[2018-01-12] MEDS: FAMOTIDINE 20 MG/2 ML VIAL IV SCH (09:03)
[2018-01-12] MEDS: GABAPENTIN 100 MG CAP PO SCH ×3 (09:03→20:39)
[2018-01-12] MEDS: AMLODIPINE BESYLATE 10 MG TAB PO SCH (09:04)
[2018-01-12] MEDS: PANTOPRAZOLE SOD 40 MG TABEC PO SCH (09:04)
[2018-01-12] MEDS: HYDRALAZINE HCL 25 MG TAB PO SCH ×2 (09:05→17:29)
[2018-01-12] MEDS: HYDROCODONE/APAP 7.5MG-325MG 1 EA TAB PO PRN (09:19)
[2018-01-12 11:51] VITALS: BP 133/73
--- NOTE | 2018-01-12 14:20 | Progress Note ---
DATE: January 12, 2018 TIME: 1345. OVERNIGHT: No acute events. REVIEW OF SYSTEMS: Patient is a poor historian. However, he denies chest pain or shortness of breath. Denies nausea, vomiting, diarrhea, dizziness, blurry vision, fever, chills or sweats. Continues with complaints of diffuse abdominal tenderness. OBJECTIVE VITAL SIGNS: T 98.7, P 59, respirations 20, BP 133/73, pulse ox 97% on O2 at 2 liters nasal cannula. GENERAL APPEARANCE: This is a very tired, elderly man resting supine in bed. HEENT: Normocephalic without sinus tenderness. Arcus senilis noted. Nares patent. Oral mucosa moist and intact with fair to poor dentition. Trachea is midline without JVD. CV: S1 and S2 without clicks, murmurs or rubs. LUNGS: Bilateral breath sounds with faint rales that clear upon cough. Poor excursion noted. ABDOMEN: Soft. Dressing at right flank. Tender to deep palpation. EXTREMITIES: No edema. Moves all 4. SKIN: Dry. PSYCHIATRIC: Flat affect. LABS: WBC 8.24, H and H 12.1 and 36.8, platelet count 145. Chemistries: Sodium 138, K 3.5, chloride 95, CO2 35, gap 11.5, BUN 11, creatinine 0.75 respectively. Serum glucose this a.m. 155. Continues with low protein values. MEDICATIONS: Reviewed. ASSESSMENT AND PLAN: This is an 82-year-old man with: 1. Atrial fibrillation with rapid ventricular response. Continue telemetry monitoring. Appears to be rate controlled. 2. Biliary obstruction, status post stent replacement to the common bile duct. RANEGL drain removed per surgical services this day. 3. Coagulopathy. Continue to monitor. 4. Coronary artery disease. 5. Acute exacerbation of systolic congestive heart failure. Continue scheduled diuretics with potassium replacement and monitor fluid status. Potassium steady. 6. Dementia. 7. Cholelithiasis and acute cholecystitis, status post laparoscopic cholecystectomy. GI recommendations followed. Surgical team removed RANGEL drain this day. 8. A 5-mm left ureterolithiasis and minimal hydronephrosis. 9. Urinary tract infection. IV antibiotics. 10. Chronic obstructive pulmonary disease. Pulmonary consult noted. Continue p.r.n. nebulizers. 11. Prophylaxis: SCDs and Protonix. 12. Disposition: Follow up K value in a.m., as today is 1st day of oral potassium replacement. Continue treatment plan as above. Dictated by: Gia Watson NP Job#: [id number]
[2018-01-12 16:06] VITALS: BP 130/68
[2018-01-12] MEDS ORDERED: ALBUTEROL2.5 MG/3 M NEB (19:17)
[2018-01-12] MEDS ORDERED: PROTONIX40 MG/ML PO (19:17)
[2018-01-12] MEDS ORDERED: K DUR10 MEQ PO (19:17)
[2018-01-12] MEDS ORDERED: FUROSEMIDE20 MG PO (19:17)
[2018-01-12] MEDS ORDERED: GABAPENTIN100 MG PO (19:17)
[2018-01-12] MEDS ORDERED: FAMOTIDINE20 MG/2 ML IV (19:17)
[2018-01-12] MEDS ORDERED: ACETAMINOPHEN325 M1 PO (19:17)
[2018-01-12] MEDS ORDERED: CARDURA2 MG PO (19:17)
[2018-01-12] MEDS ORDERED: HYDRALAZINE HCL25 MG PO (19:17)
[2018-01-12] MEDS ORDERED: NORVASC10 MG PO (19:17)
[2018-01-12] MEDS ORDERED: ESIDRIX25 MG PO (19:17)
[2018-01-12] MEDS ORDERED: Hydrocodone/Apap 7.5MG-325MG PO (19:17)
[2018-01-12] MEDS: ALBUTEROL SULF 0.083% NEB SOLN 3 ML NEB NEB PRN (20:30)
[2018-01-12] MEDS: DOXAZOSIN MESYLATE 2 MG TAB PO SCH (20:39)
--- NOTE | 2018-01-13 14:28 | Discharge Summary ---
PRINCIPAL DIAGNOSES 1. Atrial fibrillation with rapid ventricular response. 2. Biliary obstruction status post laparoscopic cholecystectomy, endoscopic retrograde cholangiopancreatography with stent. 3. Coagulopathy. 4. Coronary artery disease. 5. Acute exacerbation of systolic congestive heart failure. 6. Dementia. 7. Cholelithiasis and acute cholecystitis. 8. Ureterolithiasis and minimal hydronephrosis. 9. Urinary tract infection. 10. Chronic obstructive pulmonary disease. 11. Pleural effusion. 12. Pancreatitis. SECONDARY DIAGNOSES 1. Nephrolithiasis. 2. Congestive heart failure. 3. Pyelonephritis. 4. Atrial fibrillation with rapid ventricular response. 5. Permanent pacemaker placement. 6. Hypertension. 7. History of coronary artery bypass graft. 8. History of cerebrovascular accident. CHIEF COMPLAINT: The patient stated he started experiencing abdominal pain for approximately 2 days characterized as going around his abdomen with some nausea and reported fever. Denied vomiting or diarrhea. HOSPITAL COURSE: Upon presentation to [facility] with this chief complaint, workup was initiated. Due to the findings of gallstones, cardiology clearance was obtained as ERCP with stent was deemed necessary. Cardiac clearance was obtained on the at which time the patient proceeded from his ICU bed to his ERCP beginning late at night on 01/04/2018 and completing in the morning of day #2, January 05, 2018. Upon meeting recovery criteria, the patient was transferred back to the ICU to begin his recovery. The patient was found to have a pleural effusion on day #3, January 06. Pulmonary consult was obtained at which time the pleural effusion was attributed secondary to pancreatitis. The patient was planned for an ultrasound-guided thoracentesis. On hospital day #4, the aforementioned ultrasound-guided thoracentesis was completed with 1.5 L removed. The procedure was uneventful. The patient was returned to ICU where the following day, hospital day #5, the patient did indeed undergo a laparoscopic cholecystectomy per surgical services. The patient was returned to the ICU following recovery criteria. On hospital day #6, the patient was transferred from the ICU to [facility]. On days #7 and #8, the patient received IV antibiotics, IV fluids, pain management, vital sign monitoring, RANGEL drain management, and rehabilitative consults and treatment in addition to consulting services. Due to the patient's severe deconditioning, discharge planning concerning ongoing SNF care was arranged. On hospital day #9, January 12, 2018, the RANGEL drain was removed by surgical services, and the patient was able to secure a bed at [facility] in [place], [place]. The patient was transferred via ambulance to [facility] at approximately 2120 on the night of January 12 in stable condition. DISCHARGE MEDICATIONS: The patient continued his hospital medication regimen, which included: 1. P.R.N. Tylenol. 2. P.R.N. albuterol. 3. Daily amlodipine 10 mg. 4. Daily doxazosin 8 mg at bedtime. 5. IV Pepcid daily. 6. Furosemide 20 mg by mouth twice daily. 7. Gabapentin 100 mg t.i.d. 8. Hydralazine by mouth 25 mg twice daily. 9. Hydrochlorothiazide 25 mg once daily. 10. Protonix 40 mg p.o. daily. 11. Potassium chloride 10 mEq controlled release 2 tablets by mouth daily. 12. P.R.N. Deford. 13. Additionally, the patient was to continue his statin therapy. 14. Zocor 20 mg p.o. at bedtime. 15. P.R.N. Ultram. 16. P.R.N. Ambien for insomnia. FOLLOWUP: The patient is to follow up with surgical services as directed and primary care provider at [facility], Dr. Davila. CONDITION AT DISCHARGE: Stable. DICTATED BY: Gia Watson NP NAKUL MEYER MD Job#: [id number]
== END 2018-01-12 21:22 | DRG 417 ==
LOC: ER 21:44 → ERHOLD 01-04 01:00 → ICU 01-04 09:23 → IMCU 01-06 22:55 → ICU 01-08 14:17 → MED/SURG3 01-09 14:41
PROVIDERS: ADMIT Internal Medicine; ATTEND Internal Medicine
PROC: 0FC98ZZ Extirpation of Matter from Common Bile Duct, Via Natural or Artificial Opening Endoscopic (ICD-10-PCS; 2018-01-04)
PROC: BF131ZZ Fluoroscopy of Gallbladder and Bile Ducts using Low Osmolar Contrast (ICD-10-PCS; 2018-01-04)
PROC: 30233K1 Transfusion of Nonautologous Frozen Plasma into Peripheral Vein, Percutaneous Approach (ICD-10-PCS; 2018-01-04)
PROC: 0F798DZ Dilation of Common Bile Duct with Intraluminal Device, Via Natural or Artificial Opening Endoscopic (ICD-10-PCS; principal; 2018-01-04 09:00)
PROC: 0W9B3ZX Drainage of Left Pleural Cavity, Percutaneous Approach, Diagnostic (ICD-10-PCS; 2018-01-07)
PROC: 0FT44ZZ Resection of Gallbladder, Percutaneous Endoscopic Approach (ICD-10-PCS; 2018-01-08)
PROC: 0F9980Z Drainage of Common Bile Duct with Drainage Device, Via Natural or Artificial Opening Endoscopic (ICD-10-PCS; 2018-01-08)
DX: K80.63 Calculus of gallbladder and bile duct with acute cholecystitis with obstruction (principal); I50.23 Acute on chronic systolic (congestive) heart failure; K85.90 Acute pancreatitis without necrosis or infection, unspecified; D68.9 Coagulation defect, unspecified; N13.2 Hydronephrosis with renal and ureteral calculous obstruction; N20.2 Calculus of kidney with calculus of ureter; N12 Tubulo-interstitial nephritis, not specified as acute or chronic; K80.00 Calculus of gallbladder with acute cholecystitis without obstruction; F03.90 Unspecified dementia, unspecified severity, without behavioral disturbance, psychotic disturbance, mood disturbance, and anxiety; Z79.01 Long term (current) use of anticoagulants; I25.10 Atherosclerotic heart disease of native coronary artery without angina pectoris; I11.0 Hypertensive heart disease with heart failure; Z95.1 Presence of aortocoronary bypass graft; J44.9 Chronic obstructive pulmonary disease, unspecified; K86.89 Other specified diseases of pancreas; Z95.0 Presence of cardiac pacemaker; E87.6 Hypokalemia; I48.91 Unspecified atrial fibrillation
CPT/HCPCS: 32555; 36415; 36430; 43274; 71045; 74177; 74328; 74470; 76604; 80048; 80053; 80076; 81001; 82150; 83605; 83615; 83690; 84132; 84157; 85025; 85610; 85730; 86850; 86900; 87040; 87070; 87086; 87205; 88304; 89051; 93005; 93306; 94640; 96360; 96361; 96366; 97139; 99284; C2625; J1100; J1170; J1610; J1940; J1956; J2001; J2270; J2405; J2543; J3430; J3480; J7050; J7120; P9017; Q9967

== ENCOUNTER 2018-02-23 18:41 | Emergency (ER) | payer MEDICARE ==
[~2018-02-23] VITALS: Ht 365.8 cm; Wt 112.9 kg
[~2018-02-23 18:41] MED LIST changes: +ACETAMINOPHEN325 M1 PO; +ALBUTEROL2.5 MG/3 M NEB; +CARDURA2 MG PO; -DEXAMETHASONE SOD PHOS INJ 4 MG/ML VIAL ONE; +ESIDRIX25 MG PO; +FAMOTIDINE20 MG/2 ML IV; +FUROSEMIDE20 MG PO; +GABAPENTIN100 MG PO; +Hydrocodone/Apap 7.5MG-325MG PO; +K DUR10 MEQ PO; +LASIX20 MG PO; -LIDOCAINE HCL 2% LOCAL INJ 5 ML SDV VIAL INJ ONE; +NAMENDA10 MG PO; +NORVASC10 MG PO; -PROPOFOL IV EMULSION 10 MG/ML 20 ML VIAL ONE; +PROTONIX40 MG/ML PO; -ROCURONIUM BROMIDE 10 MG/ML 5ML VIAL ONE; -SEVOFLURANE INHAL SOLN 250 ML PEN BTL ONE; +TIZANIDINE HCL4 MG PO; +ULTRAM50 MG PO
[2018-02-23 20:04] LABS: BASOPHILS % 0.4 % (0.0-1.0); EOSINOPHILS # (AUTO) 0.1 (0.0-0.4); EOSINOPHILS % 1.9 % (0.0-6.0); HEMATOCRIT 42.2 % (38.2-49.6); HEMOGLOBIN 14.1 g/dL (14.0-18.0); LYMPHOCYTES # (AUTO) 2.2 (1.0-3.2); LYMPHOCYTES % 29.7 % (18.0-39.1); MEAN CORPUSCULAR HEMOGLOBIN 28.7 pg (28-32); MEAN CORPUSCULAR HGB CONC 33.4 g/dL (31-35); MEAN CORPUSCULAR VOLUME 85.9 fL (81-99); MONOCYTES # (AUTO) 0.7 (0.2-0.8); MONOCYTES % 9.3 % (4.4-11.3); NEUTROPHILS # (AUTO) 4.2 (2.1-6.9); NEUTROPHILS % 58.4 % (38.7-80.0); PLATELET COUNT 151 x10e3/uL (140-360); RED BLOOD COUNT 4.91 x10e6/uL (4.3-5.7); RED CELL DISTRIBUTION WIDTH 13.5 % (11.7-14.4)
[2018-02-23 20:18] LABS: INR 1.09; PARTIAL THROMBOPLASTIN TIME 26.2 seconds (23.8-35.5); PROTHROMBIN TIME 13.3 seconds (11.9-14.5)
--- NOTE | 2018-02-23 20:19 | Diagnostic Imaging Report ---
EXAMINATION: CHEST 2 VIEWS INDICATION: \S\HYPOKALEMIA \S\[id number] \S\1956 \S\Y COMPARISON: 01/09/2018 FINDINGS: PA and lateral views TUBES and LINES: Left chest wall single lead cardiac device in place with distal tip overlying right ventricle. LUNGS and PLEURA: Lungs are well inflated. Mild central vascular congestion. Left basilar hazy opacification. No visible pneumothorax. HEART AND MEDIASTINUM: The cardiac silhouette is enlarged. Median sternotomy wires. BONES AND SOFT TISSUES: No acute osseous lesion. Soft tissues are unremarkable. UPPER ABDOMEN: No free air under the diaphragm. IMPRESSION: Left basilar hazy opacification, probably small effusion, which is decreased when compared to the prior exam. Resolved previously seen right pleural effusion. Mild central vascular congestion. Signed by: Dr. Dennis Alva MD on 02/23/2018 8:15 PM
[2018-02-23 20:27] LABS: ALANINE AMINOTRANSFERASE 15 IU/L (0-55); ALBUMIN 3.6 g/dL (3.5-5.0); ALKALINE PHOSPHATASE 60 IU/L (40-150); ANION GAP 15.4 mmol/L (8-16); BLOOD UREA NITROGEN 23 mg/dL (7-26); BUN/CREATININE RATIO 20 (6-25); CALCIUM 10.7 mg/dL (8.4-10.2); CARBON DIOXIDE 32 mmol/L (22-29); CHLORIDE 89 mmol/L (98-107); CREATININE, SERUM 1.15 mg/dL (0.72-1.25); EST GLOMERULAR FILTRATION RATE > 60 ML/MIN (60-); GLUCOSE 173 mg/dL (74-118); SODIUM 134 mmol/L (136-145)
[2018-02-23 20:34] LABS: POTASSIUM 2.4 mmol/L (3.5-5.1)
[2018-02-23 20:46] LABS: CREATINE KINASE 27 IU/L (30-200)
[2018-02-23] MEDS ORDERED: POTASSIUM CHLORIDE 20MEQ/15ML UDC PO NR (21:17)
[2018-02-23] MEDS ORDERED: POTASSIUM PO (23:01)
[2018-02-23 23:03] VITALS: BP 114/95
== END 2018-02-24 00:30 ==
LOC: ER 18:41
DX: E87.6 Hypokalemia (principal); K52.9 Noninfective gastroenteritis and colitis, unspecified
CPT/HCPCS: 36415; 71046; 80053; 82550; 82553; 83735; 84484; 85025; 85610; 85730; 93005; 99284

== ENCOUNTER → 2018-03-27 | Day surgery (SDC) | payer MEDICARE ==
[~2018-03-27] MED LIST changes: +AMLODIPINE BESY10 MG PO; +ASPIRIN325 MG PO; +CLONIDINE HCL0.3 MG TD; +COUMADIN3 MG PO; +COZAAR25 MG PO; +DOXAZOSIN MESYLA8 MG PO; +FENTANYL CITRATE/PF 100MCG/2 ML INJ ONE; +GLUCAGON FOR INJ 1 MG VIAL ONE; +GLYCOPYRROLATE INJ 1MG/ 5 ML SYR ONE; +INDOMETHACIN 50 MG SUPP.RECT RC ONE; +IOPAMIDOL 610MG/1ML 300 MG/ML VIAL IV ONE; +LIDOCAINE HCL 2% LOCAL INJ 5 ML SDV VIAL INJ ONE; +MECLIZINE HCL25 MG PO; +NEOSTIGMINE 5 MG/5ML SYR ONE; +NEXIUM40 M1 PO; +ONDANSETRON HCL INJ 2 MG/ML VIAL ONE; +POTASSIUM PO; +PROPOFOL IV EMULSION 10 MG/ML 50 ML VIAL ONE; +ROCURONIUM BROMIDE 10 MG/ML 5ML VIAL ONE; +SEVOFLURANE INHAL SOLN 250 ML PEN BTL ONE; +SIMETHICONE 40 MG/0.6 ML BTL ONE; +SIMVASTATIN20 MG PO; +TIZANIDINE HCL4 M1 PO; +ZOLPIDEM TARTRAT5 MG PO
--- OUTSIDE RECORDS SUMMARY | 2018-03-27 08:27 | XMS REPORT | Clinical Summary ---
Author Author [facility] Organization [facility] Address Unknown Phone Unavailable Care Team Providers Care Spiritual Care Coordinator Name Role Phone Earl Montes MD PCP Allergies Active Allergy Reactions Severity Noted Date Comments Enalapril 11/30/2008 couph Current Medications Prescription Sig. Disp. Refills Start End Date Status Date hydrALAZINE (APRESOLINE) TAKE 1 TABLET BY MOUTH 180 tablet 3 04/08/20 Active 25 mg tabletIndications: TWICE A DAY 17 Hypertension, malignant hydroCHLOROthiazide Take 1 tablet by mouth 90 tablet 3 07/29/19 Active (HYDRODIURIL) 25 mg daily. 18 tabletIndications: Essential hypertension amLODIPine (NORVASC) 10 TAKE ONE TABLET BY MOUTH 90 tablet 2 09/13/19 Active mg tabletIndications: ONE TIME DAILY. 18 Hypertension, malignant doxazosin (CARDURA) 8 mg TAKE ONE TABLET BY MOUTH 90 tablet 2 09/19/19 Active tabletIndications: NIGHTLY AT BEDTIME. 18 Hypertension, malignant warfarin (COUMADIN) 5 mg Take 1 tablet by mouth 90 tablet 1 09/27/19 Active tabletIndications: daily. 18 Chronic atrial fibrillation simvastatin (ZOCOR) 20 mg TAKE ONE TABLET BY MOUTH 90 tablet 1 10/07/19 Active tabletIndications: NIGHTLY AT BEDTIME. 18 Hypercholesterolemia furosemide (LASIX) 20 mg TAKE 1 TABLET BY MOUTH 60 tablet 3 02/21/20 Active tabletIndications: TWICE A DAY 18 Peripheral edema zolpidem (AMBIEN) 5 mg TAKE 1 TABLET BY MOUTH 30 tablet 1 02/24/20 Active TabIndications: Insomnia, EVERYDAY AT BEDTIME 18 unspecified type esomeprazole (NEXIUM) 40 TAKE ONE CAPSULE BY MOUTH 90 capsule 3 03/03/20 Active mg delayed release EVERY MORNING BEFORE 18 capsuleIndications: BREAKFAST Gastroesophageal reflux disease without esophagitis cloNIDine (CATAPRES) 0.3 APPLY ONE PATCH 12 Patch 3 03/18/20 Active mg/24 hr EXTERNALLY WEEKLY. 18 patchIndications: Hypertension, malignant losartan (COZAAR) 100 mg Take 1 tablet by mouth 90 tablet 3 03/18/20 Active tabletIndications: daily. 18 Hypertension, malignant hydrALAZINE (APRESOLINE) Take 1 tablet by mouth 2 180 tablet 3 04/17/20 03/31/20 Discontin 25 mg tabletIndications: times daily. 16 17 ued Hypertension, malignant losartan (COZAAR) 100 mg Take 1 tablet by mouth 90 tablet 3 04/17/20 03/31/20 Discontin tabletIndications: daily. 16 17 ued Hypertension, malignant hydroCHLOROthiazide TAKE ONE TABLET BY MOUTH 90 tablet 3 06/04/20 07/29/19 Discontin (HYDRODIURIL) 25 mg ONE TIME DAILY 16 18 ued tabletIndications: Essential hypertension warfarin (COUMADIN) 5 mg TAKE 1 TABLET BY MOUTH 90 tablet 1 11/17/19 09/20/19 Discontin tabletIndications: EVERY DAY 17 18 ued Chronic atrial fibrillation zolpidem (AMBIEN) 5 mg TAKE ONE TABLET BY MOUTH 30 tablet 3 12/04/19 04/28/20 Discontin TabIndications: Insomnia, NIGHTLY AT BEDTIME. 17 17 ued unspecified amLODIPine (NORVASC) 10 TAKE ONE TABLET BY MOUTH 90 tablet 2 12/24/19 09/13/19 Discontin mg tabletIndications: ONE TIME DAILY 17 18 ued Hypertension, malignant doxazosin (CARDURA) 8 mg TAKE ONE TABLET BY MOUTH 90 tablet 2 01/10/20 09/17/19 Discontin tabletIndications: NIGHTLY AT BEDTIME 17 18 ued Hypertension, malignant simvastatin (ZOCOR) 20 mg TAKE ONE TABLET BY MOUTH 90 tablet 1 01/16/20 05/12/20 Discontin tabletIndications: NIGHTLY AT BEDTIME 17 17 ued Hypercholesterolemia cloNIDine (CATAPRES) 0.3 APPLY ONE PATCH 12 Patch 3 03/10/20 03/18/20 Discontin mg/24 hr EXTERNALLY WEEKLY 17 18 ued patchIndications: Hypertension, malignant furosemide (LASIX) 20 mg TAKE 1 TABLET BY MOUTH 60 tablet 3 03/12/20 07/04/19 Discontin tabletIndications: TWICE A DAY 17 18 ued Peripheral edema esomeprazole (NEXIUM) 40 TAKE ONE CAPSULE BY MOUTH 90 capsule 3 03/20/20 02/29/20 Discontin mg delayed release EVERY MORNING BEFORE 17 18 ued capsuleIndications: BREAKFAST Gastroesophageal reflux disease without esophagitis losartan (COZAAR) 100 mg TAKE 1 TABLET BY MOUTH 90 tablet 3 04/08/20 03/18/20 Discontin tabletIndications: EVERY DAY 17 18 ued Hypertension, malignant zolpidem (AMBIEN) 5 mg TAKE 1 TABLET BY MOUTH 30 tablet 1 05/05/20 07/04/19 Discontin TabIndications: Insomnia NIGHTLY AT BEDTIME 17 18 ued simvastatin (ZOCOR) 20 mg TAKE ONE TABLET BY MOUTH 90 tablet 1 05/19/20 10/07/19 Discontin tabletIndications: NIGHTLY AT BEDTIME. 17 18 ued Hypercholesterolemia furosemide (LASIX) 20 mg TAKE 1 TABLET BY MOUTH 60 tablet 3 07/04/19 10/07/19 Discontin tabletIndications: TWICE DAILY 18 18 ued Peripheral edema zolpidem (AMBIEN) 5 mg TAKE 1 TABLET BY MOUTH 30 tablet 1 07/04/19 07/29/19 Discontin TabIndications: Insomnia, NIGHTLY AT BEDTIME. 18 18 ued unspecified type zolpidem (AMBIEN) 5 mg TAKE 1 TABLET BY MOUTH 30 tablet 1 07/29/19 10/07/19 Discontin TabIndications: Insomnia, NIGHTLY AT BEDTIME. 18 18 ued unspecified type furosemide (LASIX) 20 mg Take 1 tablet by mouth 2 60 tablet 3 10/07/19 02/16/20 Discontin tabletIndications: times daily. 18 18 ued Peripheral edema zolpidem (AMBIEN) 5 mg TAKE 1 TABLET BY MOUTH 30 tablet 1 10/07/19 12/02/19 Discontin TabIndications: Insomnia, NIGHTLY AT BEDTIME. 18 18 ued unspecified type zolpidem (AMBIEN) 5 mg TAKE 1 TABLET BY MOUTH 30 tablet 1 12/02/19 02/19/20 Discontin TabIndications: Insomnia, NIGHTLY AT BEDTIME. 18 18 ued unspecified type Active Problems Problem Noted Date Pacemaker in place 07/29/2017 Foot swelling 04/01/2016 NS (nuclear sclerosis) 01/12/2014 Hyperopia with astigmatism and presbyopia 01/12/2014 Afib 05/11/2012 Peripheral edema 10/10/2006 Venous stasis 10/10/2006 Hypertension, malignant 02/27/2006 Unspecified constipation 02/27/2006 CAD (coronary artery disease), autologous vein bypass graft 02/27/2006 Hypercholesterolemia 02/27/2006 Encounters Date Type Specialty Care Team Description 03/18/2018 Office Visit [facility] Earl Montes MD Hypertension, malignant (Primary Dx); Coronary artery disease involving autologous vein coronary bypass graft without angina pectoris; Chronic atrial fibrillation; S/P laparoscopic cholecystectomy; Foot swelling; Primary insomnia; Needs flu shot 02/28/2018 Refill [facility] Earl Montes MD Gastroesophageal reflux disease without esophagitis 02/18/2018 Refill [facility] Earl Montes MD Insomnia, unspecified type 02/15/2018 Refill [facility] Earl Montes MD Peripheral edema 12/01/2017 Office Visit [facility] Earl Montes MD Abdominal pain, epigastric (Primary Dx); Coronary artery disease involving autologous vein coronary bypass graft without angina pectoris; Essential hypertension; Insomnia, unspecified type 10/10/2017 Ancillary Radiology Earl Montes MD Procedure 10/06/2017 Office Visit [facility] Earl Montes MD Hypertension, malignant (Primary Dx); Peripheral edema; Hypercholesterolemia; Insomnia, unspecified type; Chronic atrial fibrillation; Chest pain, unspecified type; Need for pneumococcal vaccine 09/19/2017 Refill [facility] Salima Melendez RN Chronic atrial fibrillation 09/16/2017 Refill [facility] Salima Melendez RN Hypertension, malignant 09/12/2017 Office Visit Ophthalmology Marisa Dixon, OD Combined forms of age-related cataract of both eyes (Primary Dx); Vitreous floaters, bilateral; Bilateral dry eyes; Refractive error 09/12/2017 Refill [facility] Salima Melendez RN Hypertension, malignant 08/12/2017 Refill [facility] Earl Montes MD Essential hypertension 07/29/2017 Office Visit [facility] Earl Montes MD Essential hypertension (Primary Dx); Hypercholesterolemia; Coronary artery disease involving autologous vein coronary bypass graft without angina pectoris; Pacemaker in place; Insomnia, unspecified type; Needs flu shot 07/04/2017 Refill [facility] Naomie Connors RN Insomnia, unspecified type (Primary Dx) 07/04/2017 Refill [facility] Earl Montes MD Peripheral edema 05/12/2017 Refill Family Practice Salima Melendez RN Hypercholesterolemia 05/09/2017 Pharmacy Visit 04/28/2017 Refill Family Practice Earl Montes MD Insomnia 04/04/2017 Office Visit Ophthalmology Zack MarisaMADELYN Canceled (Patient Request) 03/31/2017 Refill [facility] Earl Montes MD Hypertension, malignant after 03/26/2017 Immunizations Name Dates Previously Given Next Due Influenza Vaccine 04/25/2014, 04/15/2011 Influenza Vaccine, 07/29/2017 (Deferred: Patient already had this Seasonal, Injectable immunization - Patient already received vaccine last year 2016 does not recall the month) Influenza, 03/18/2018 Vaccine<FLUCELVAX>(Multi- Dose) PCV 13 (Pnuemococcal 10/06/2017 Conjugated 13 Valent) PPV 23 Pneumococcal 04/03/2010 Polysaccaride Tdap Tetanus, diphtheria, 06/09/2011 acellular pertussis Vaccine Family History Medical History Relation Name Comments No Known Problems Daughter Aneurysm Daughter Heart Father Hypertension Father Heart Mother Hypertension Mother Relation Name Status Comments Brother Brother Brother Brother Brother Daughter shot and killed Daughter Father heart disease (Age 75) Maternal Grandfather Maternal Grandmother Mother heart disease (Age unsure) Paternal Grandfather Paternal Grandmother Sister Alive Son Alive Social History Tobacco Use Types Packs/Day Years Used Date Never Smoker Smokeless Tobacco: Never Used Tobacco Cessation: Counseling Given: No Alcohol Use Drinks/Week oz/Week Comments No NO INSIGHT REFERRAL NEEDED Sex Assigned at Date Recorded Not on file Last Filed Vital Signs Vital Sign Reading Time Taken Blood Pressure 91/46 03/18/2018 10:09 AM CDT Pulse 83 03/18/2018 10:09 AM CDT Temperature 36.7 C (98.1 F) 03/18/2018 10:09 AM CDT Respiratory Rate 18 03/18/2018 10:09 AM CDT Oxygen Saturation 98% 03/18/2018 10:09 AM CDT Inhaled Oxygen - - Concentration Weight 100.2 kg (220 lb 12.8 oz) 03/18/2018 10:09 AM CDT Height 182.9 cm (6') 03/18/2018 10:09 AM CDT Body Mass Index 29.95 03/18/2018 10:09 AM CDT Plan of Treatment Date Type Specialty Care Team Description 04/01/2018 Office Visit Family Practice Earl Montes MD 2 week [place] [address] [phone] Health Maintenance Due Date Last Done Comments CORONARY ARTERY DISEASE 08/26/2018 08/26/2017, 04/17/2016, 02/02/2015, AGE 18 AND UP Additional history exists IMM Pneumococcal Age 64 Completed 04/03/2010 (Previously completed - and Up External) Procedures Procedure Name Priority Date/Time Associated Diagnosis Comments 12 LEAD EKG Routine 12/01/2017 Abdominal pain, Results for this 2:55 PM CDT epigastric procedure are in the Coronary artery disease results section. involving autologous vein coronary bypass graft without angina pectoris XRAY CHEST 2 VIEWS Routine 10/10/2017 Chest pain, unspecified Results for this 8:51 AM CDT type procedure are in the results section. 12 LEAD EKG Routine 10/06/2017 Chest pain, unspecified Results for this 4:21 PM CDT type procedure are in the results section. COMPREHENSIVE METABOLIC Routine 08/26/2017 Results for this PANEL(DBIL NOT INCLUDED) 9:08 AM CDT procedure are in the results section. LIPID PROFILE Routine 08/26/2017 Hypercholesterolemia Results for this 9:08 AM CDT procedure are in the results section. after 03/26/2017 Results * 12 LEAD EKG (12/01/2017 2:55 PM) 12 LEAD EKG FOR [facility] Test Date:2017-12-01 Pat Name: SIRENA WOLFE Department: Room: Gender: M Expanded Function Dental Assistant: [id number] :[id number] 7- Requested By: Order Number: Lisa prince MD: Nyla Holliday Measurements Intervals [place] Rate: 64 P: RI: QRS: -72 QRSD: 222 T: 86 QT: 506 QTc:522 Interpretive Statements Electronic ventricular pacemaker Electronically Signed On 12-01-17 17:10:01 CDT by Nyla Holliday Performing Organization Address City/State/Zipcode Phone Number SMS * XRAY CHEST 2 VIEWS (10/10/2017 8:51 AM) Impressions Performed At IMPRESSION: SMS Stable moderately enlarged cardiac silhouette with interstitial edema and small left pleural effusion. If the report is described as "FINALIZED" it indicates the attending/staff radiologist below has reviewed the images and agrees with the resident's interpretation. Dictated By: Sammi Hamilton DO, 10/10/2017 11:44 AM I have reviewed the study and agree with the findings in this report. Signed By: Beth West MD, 10/10/2017 2:30 PM Narrative Performed At EXAM: XRAY CHEST 2 VIEWS10/10/2017 8:51 AM SMS INDICATION: Mid chest pain with ASHLEY COMPARISON: Chest x-ray dated chest x-ray 02/16/2010 FINDINGS: PA and lateral views of the chest. Lines/tubes: Placement of aand pacemaker with single right ventricular lead. Lead is intact. Lungs:The lungs are well inflated. No pneumonia. Venous pulmonary congestion and interstitial edema. Pleura: Small left pleural effusion. No pneumothorax. Heart and mediastinum: Stable moderately enlarged cardiac silhouette. Calcific indications of the aortic knob. Calcified lymph nodes. Bones and soft tissues:No acute osseous abnormality.Soft tissues are unremarkable. Procedure Note Interface, Rad/Mammog In - 10/10/2017 2:35 PM CDT EXAM: XRAY CHEST 2 VIEWS 10/10/2017 8:51 AM INDICATION: Mid chest pain with ASHLEY COMPARISON: Chest x-ray dated chest x-ray 02/16/2010 FINDINGS: PA and lateral views of the chest. Lines/tubes: Placement of a and pacemaker with single right ventricular lead. Lead is intact. Lungs: The lungs are well inflated. No pneumonia. Venous pulmonary congestion and interstitial edema. Pleura: Small left pleural effusion. No pneumothorax. Heart and mediastinum: Stable moderately enlarged cardiac silhouette. Calcific indications of the aortic knob. Calcified lymph nodes. Bones and soft tissues: No acute osseous abnormality. Soft tissues are unremarkable. IMPRESSION IMPRESSION: Stable moderately enlarged cardiac silhouette with interstitial edema and small left pleural effusion. If the report is described as "FINALIZED" it indicates the attending/staff radiologist below has reviewed the images and agrees with the resident's interpretation. Dictated By: Sammi Hamilton DO, 10/10/2017 11:44 AM I have reviewed the study and agree with the findings in this report. Signed By: Beth West MD, 10/10/2017 2:30 PM Performing Organization Address City/[facility] Phone Number SMS * 12 LEAD EKG (10/06/2017 4:21 PM) 12 LEAD EKG FOR [facility] Test Date:2017-10-06 Pat Name: SIRENA WOLFE Department: Room: Gender: Expanded Function Dental Assistant: [id number] :[id number] [id number] Requested By: Order Number: Lisa prince MD: Vaishali Kasper MD Measurements Intervals [place] Rate: 68 P: RI: QRS: -80 QRSD: 224 T: 81 QT: 510 QTc:542 Interpretive Statements Electronic ventricular pacemaker Electronically Signed On 10-06-17 17:41:03 CDT by Vaishali Kasper MD Performing Organization Address City/[facility] Phone Number [facility] * COMPREHENSIVE METABOLIC PANEL(DBIL NOT INCLUDED) (08/26/2017 9:08 AM) Albumin 3.6 (L) 4.2 - 5.5 g/dL [facility] Calcium 10.3 8.6 - 10.3 mg/dL [facility] CO2 32 (H) 21 - 31 mmol/L [facility] Chloride 101 98 - 107 mmol/L [facility] Creatinine 1.00 0.7 - 1.3 mg/dL [facility] Glucose 112 (H) 70 - 110 mg/dL [facility] Alk Phos 47 34 - 104 U/L [facility] Potassium 3.7 3.5 - 5.1 mmol/L [facility] 3 Sodium 143 136 - 145 mmol/L [facility] ALT 12 7 - 52 U/L [facility] AST 11 (L) 13 - 39 U/L [facility] 3 Urea Nitrogen 19 7 - 25 mg/dL [facility] T Bilirubin 0.7 0.2 - 1.2 mg/dL [facility] T Protein 6.3 6.0 - 8.3 g/dL [facility] GFR, Estimated >60 mL/min/1.73 m2 [facility] 3 GFR, Estim, Afr-Am >60 mL/min/1.73 m2 [facility] 3 Anion Gap 10 [facility] 3 Performing Organization Address [facility] Phone Number MISYS [facility] * LIPID PROFILE (08/26/2017 9:08 AM) Cholesterol 132 mg/dL [facility] Comment: REFERENCE RANGE: Desirable: <200 mg/dL Borderline: 200-240 mg/dL High Risk: >240 mg/dL Triglyceride 93 <150 mg/dL [facility] 3 Comment: REFERENCE RANGE: Normal: <150 mg/dL Borderline High: 150-199 mg/dL High: 200-499 mg/dL Very High: >wp=450 mg/dL HDL 42 mg/dL [facility] 3 Comment: Increased CHD risk: <40 mg/dL Decreased CHD risk: >60 mg/dL LDL 71 mg/dL [facility] 3 Comment: REFERENCE RANGE: Optimal: <100 mg/dL Near Optimal: 100-129 mg/dL Borderline High: 130-159 mg/dL High: 160-189 mg/dL Very High: >zp=538 mg/dL Specimen Blood Performing Organization Address [facility] Phone Number MISYS [facility] after 03/26/2017
[2018-03-27 09:48] LABS: INR 1.05; PROTHROMBIN TIME 14.6 seconds (11.9-14.5)
--- NOTE | 2018-03-27 12:01 | Diagnostic Imaging Report ---
ERCP CPT code: 42912 Indication: Removal of stent and balloon sweeps Technique: Fluoroscopic assistance was provided for ERCP under the direction of Dr. Davila. Multiple spot images were obtained. RADIATION DOSE: Fluoroscopy Time: 00:01:29 min Dose (Kerma) Area Product: 1247.99 cGycm2 Air Kerma (AK) value has been reviewed (77.05 mGy). It is below the limits set by the Radiation Protocol Committee (RPC) committee Findings: Images identify the presence of an endoscope and wire extending into the common bile duct. Surgical clips in the right upper quadrant are suggestive of cholecystectomy. Subsequently, contrast was injected into the common bile duct. The common bile duct is diffusely distended without large intraluminal filling defects or evidence of stricture. Intrahepatic bile ducts were not opacified. Pancreas duct was not opacified. Balloon sweeps were performed in the common bile duct. IMPRESSION: Distended common bile duct without evidence of large intraluminal duct stone. Signed by: Dr. Anupam Pearson MD on 03/27/2018 11:58 AM
[2018-03-27 12:30] VITALS: BP 131/80
--- NOTE | 2018-03-31 12:26 | Operative Report ---
DATE OF PROCEDURE: PROCEDURES PERFORMED 1. Esophagogastroduodenoscopy with esophageal dilatation and biopsies and removal of common bile duct stent. 2. Balloon occlusion cholangiogram with extension of the sphincterotomy cut and balloon sweep x2 with removal of gravel. INDICATIONS: Patient with history of dysphagia, nausea. History of ascending cholangitis, status post ERS with CBD stent insertion. MEDICATION: Patient was done under general endotracheal anesthesia. Please see anesthesiologist's note. PROCEDURE IN DETAIL: With the patient in the left lateral decubitus position, a flexible fiberoptic Olympus gastroscope was introduced into the esophagus under direct visualization without any difficulty. There was some patchy erythema noted in distal esophagus. A mild stricture was noted at the GE junction that was dilated to size 52-[place]. The scope was then advanced with ease into the stomach. Mucosa overlying the antrum and the body revealed some diffuse erythema and moderate edema and biopsies were obtained and sent to stain for H. pylori. Pylorus appeared to be of normal contour and shape, was intubated with ease and the scope was advanced all the way to the second portion of the duodenum. The mucosa overlying the proximal second portion appeared to be within normal limits. The CBD stent was noted jutting out of the ampulla. The scope was then withdrawn back into the stomach and retroflexed and mucosa overlying the fundus and the cardia appeared to be within normal limits. The scope was then straightened out. The stomach was decompressed. The scope was subsequently withdrawn. Patient tolerated the procedure well. The flexible fiberoptic Olympus side-viewing scope was then inserted into the esophagus and advanced all the way to the second portion of the duodenum. The common bile duct stent was removed per polypectomy snare and retrieved. The ampulla was then cannulated and a balloon occlusion cholangiogram was carried out. An ERS was then carried out to extend the previous sphincterotomy site. Balloon sweep x2 was carried out with removal of gravel. The scope was subsequently withdrawn. Patient tolerated the procedure well. IMPRESSION 1. Distal esophagitis. 2. 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 3. Gastritis, biopsied; biopsies sent stain for Helicobacter pylori. 4. Common bile duct stent removed per polypectomy snare. 5. Balloon occlusion cholangiogram was carried out. 6. Endoscopic retrograde sphincterotomy was done to extend the previous sphincterotomy cut. 7. Balloon sweep x2 was done with removal of stone gravel. PLAN: Follow up histology. Initiate Protonix 40 mg 1 p.o. q.a.m. and a.c. Job#: [id number] AKU cc:MD RENEE MALONE MD
== END | disposition home or self-care (01) ==
LOC: ENDO 08:25
PROVIDERS: ATTEND Internal Medicine Gastroenterology
DX: K22.2 Esophageal obstruction (principal); K20.9 Esophagitis, unspecified; K29.70 Gastritis, unspecified, without bleeding; K21.9 Gastro-esophageal reflux disease without esophagitis; Z45.89 Encounter for adjustment and management of other implanted devices; K59.00 Constipation, unspecified; I11.0 Hypertensive heart disease with heart failure; I50.9 Heart failure, unspecified; H81.49 Vertigo of central origin, unspecified ear; I69.854 Hemiplegia and hemiparesis following other cerebrovascular disease affecting left non-dominant side; H91.90 Unspecified hearing loss, unspecified ear; G47.33 Obstructive sleep apnea (adult) (pediatric); I25.810 Atherosclerosis of coronary artery bypass graft(s) without angina pectoris; I25.2 Old myocardial infarction; I48.91 Unspecified atrial fibrillation; E78.5 Hyperlipidemia, unspecified; F03.90 Unspecified dementia, unspecified severity, without behavioral disturbance, psychotic disturbance, mood disturbance, and anxiety; F32.9 Major depressive disorder, single episode, unspecified; F41.9 Anxiety disorder, unspecified; Z79.82 Long term (current) use of aspirin; Z79.01 Long term (current) use of anticoagulants; Z68.30 Body mass index [BMI] 30.0-30.9, adult; Z95.1 Presence of aortocoronary bypass graft; Z95.0 Presence of cardiac pacemaker
CPT/HCPCS: 36415; 43239; 43262; 43264; 43275; 43450; 74328; 85610; 85730; 88305; 88312; J1610; J2001; J2405; J3490; Q9967; 43260

== ENCOUNTER → 2018-04-28 | Outpatient (CLI) | payer MEDICARE ==
[~2018-04-28] MED LIST changes: -FENTANYL CITRATE/PF 100MCG/2 ML INJ ONE; -GLUCAGON FOR INJ 1 MG VIAL ONE; -GLYCOPYRROLATE INJ 1MG/ 5 ML SYR ONE; -INDOMETHACIN 50 MG SUPP.RECT RC ONE; -IOPAMIDOL 610MG/1ML 300 MG/ML VIAL IV ONE; -LIDOCAINE HCL 2% LOCAL INJ 5 ML SDV VIAL INJ ONE; -NEOSTIGMINE 5 MG/5ML SYR ONE; -ONDANSETRON HCL INJ 2 MG/ML VIAL ONE; -PROPOFOL IV EMULSION 10 MG/ML 50 ML VIAL ONE; -ROCURONIUM BROMIDE 10 MG/ML 5ML VIAL ONE; -SEVOFLURANE INHAL SOLN 250 ML PEN BTL ONE; -SIMETHICONE 40 MG/0.6 ML BTL ONE
[2018-04-28 08:47] LABS: INR 0.95; PROTHROMBIN TIME 13.5 seconds (11.9-14.5)
[2018-04-28 08:48] LABS: PARTIAL THROMBOPLASTIN TIME 28.6 seconds (23.8-35.5)
--- NOTE | 2018-04-28 09:53 | Diagnostic Imaging Report ---
PROCEDURE: CHEST XRAY POST PROCEDURE COMPARISON: None. INDICATIONS: POST THORACENTESIS FINDINGS: LUNGS: No consolidations or edema. PLEURA: No pneumothorax. Small left pleural effusion. HEART & MEDIASTINUM: The heart is enlarged. Sternotomy wire sutures and mediastinal clips. Single lead left chest wall cardiac device. BONES & SOFT TISSUES: No acute findings. CONCLUSION: Small left pleural effusion without evidence of a pneumothorax. Jose Castaneda D.O. Dictated by: Jose Castaneda D.O. on 04/28/2018 at 10:03 Electronically approved by: Jose Castaneda D.O. on 04/28/2018 at 10:03
--- NOTE | 2018-04-28 09:56 | Diagnostic Imaging Report ---
PROCEDURE: ULTRASOUND GUIDED THORACENTESIS COMPARISON: None. INDICATIONS:LEFT PLEURAL EFFUSION FINDINGS: After informed consent was obtained, the patient was placed in the sitting position and preliminary ultrasound of the posterior chest identified a safe route into the left pleural effusion. The overlying skin was prepped and draped in usual sterile fashion. Lidocaine 1% was used for local anesthesia. Under ultrasound guidance, a 5 [place] centesis needle was advanced into the pleural fluid and 1,700 cc's were aspirated. The patient tolerated the procedure well and there were no immediate post-procedural complications. A post-thoracentesis chest radiograph will be obtained. Specimen was sent to the laboratory. CONCLUSION: Uncomplicated ultrasound-guided left thoracentesis with removal of 1,700 cc's of straw-colored pleural effusion. Jose Castanead D.O. Dictated by: Jose Castaneda D.O. on 04/28/2018 at 10:05 Electronically approved by: Jose Castaneda D.O. on 04/28/2018 at 10:05
[2018-04-28 12:45] LABS: BODY FLUID APPEARANCE SL.CLOUDY; BODY FLUID COLOR YELLOW; BODY FLUID TYPE PLEURAL
[2018-04-28 12:46] LABS: RBC,BODY FLUID 73 cells/uL; WBC,BODY FLUID 277 cells/uL
[2018-04-28 12:52] LABS: EOSINOPHILS,BODY FLUID 1 %; LYMPHOCYTES,BODY FLUID 69 %; MONO/MACROPHG,BODY FLUID 22 %; NEUTROPHILS,BODY FLUID 7 %; OTHER CELLS,BODY FLUID 1 %
== END ==
LOC: US 07:25
PROVIDERS: ATTEND Internal Medicine Critical Care Medicine
DX: J90 Pleural effusion, not elsewhere classified (principal)
CPT/HCPCS: 32555; 36415; 71045; 83615; 84157; 84478; 85049; 85610; 85730; 87070; 87205; 89051

== ENCOUNTER 2019-01-15 12:04 | Inpatient (IN) | payer MEDICARE ==
[~2019-01-15] VITALS: Ht 182.9 cm; Wt 93.0 kg
--- OUTSIDE RECORDS SUMMARY | 2019-01-15 12:08 | XMS REPORT | Clinical Summary ---
Author Author [facility] Organization [facility] Address Unknown Phone Unavailable Care Team Providers Care Network Cabler Name Role Phone Gwen Brooks MD PCP Allergies Comments Active Allergy Reactions Severity Noted Date couph Enalapril 11/30/2008 Medications End Date Status Medication Sig Dispensed Refills Start Date Active hydrALAZINE (APRESOLINE) TAKE 1 TABLET 180 tablet 3 25 mg tabletIndications: BY MOUTH 7 Hypertension, malignant TWICE A DAY Active esomeprazole (NEXIUM) 40 TAKE ONE 90 capsule 3 mg delayed release CAPSULE BY 8 capsuleIndications: MOUTH EVERY Gastroesophageal reflux MORNING disease without BEFORE esophagitis BREAKFAST Active cloNIDine (CATAPRES) 0.3 APPLY ONE 12 Patch 3 mg/24 hr PATCH 8 patchIndications: EXTERNALLY Hypertension, malignant WEEKLY. Active losartan (COZAAR) 100 mg Take 1 tablet 90 tablet 3 tabletIndications: by mouth 8 Hypertension, malignant daily. Active warfarin (COUMADIN) 5 mg TAKE 1 TABLET 90 tablet 1 tabletIndications: BY MOUTH 8 Chronic atrial DAILY. fibrillation Active simvastatin (ZOCOR) 20 mg TAKE 1 TABLET 90 tablet 1 tabletIndications: BY MOUTH 8 Hypercholesterolemia EVERYDAY AT BEDTIME Active amLODIPine (NORVASC) 10 TAKE ONE 90 tablet 2 mg tabletIndications: TABLET BY 8 Hypertension, malignant MOUTH ONE TIME DAILY. Active doxazosin (CARDURA) 8 mg TAKE ONE 90 tablet 2 tabletIndications: TABLET BY 9 Hypertension, malignant MOUTH NIGHTLY AT BEDTIME. Active zolpidem (AMBIEN) 5 mg TAKE 1 TABLET 30 tablet 3 TabIndications: Insomnia, BY MOUTH 9 unspecified type EVERYDAY AT BEDTIME. Active furosemide (LASIX) 20 mg Take 1 tablet 180 tablet 3 tabletIndications: by mouth 2 9 Peripheral edema times daily. 03/18/2018 Discontinued cloNIDine (CATAPRES) 0.3 APPLY ONE 12 Patch 3 mg/24 hr PATCH 7 patchIndications: EXTERNALLY Hypertension, malignant WEEKLY 02/28/2018 Discontinued esomeprazole (NEXIUM) 40 TAKE ONE 90 capsule 3 mg delayed release CAPSULE BY 7 capsuleIndications: MOUTH EVERY Gastroesophageal reflux MORNING disease without BEFORE esophagitis BREAKFAST 03/18/2018 Discontinued losartan (COZAAR) 100 mg TAKE 1 TABLET 90 tablet 3 tabletIndications: BY MOUTH 7 Hypertension, malignant EVERY DAY 07/29/2018 Discontinued hydroCHLOROthiazide Take 1 tablet 90 tablet 3 (HYDRODIURIL) 25 mg by mouth 8 tabletIndications: daily. Essential hypertension 05/30/2018 Discontinued amLODIPine (NORVASC) 10 TAKE ONE 90 tablet 2 mg tabletIndications: TABLET BY 8 Hypertension, malignant MOUTH ONE TIME DAILY. 06/18/2018 Discontinued doxazosin (CARDURA) 8 mg TAKE ONE 90 tablet 2 tabletIndications: TABLET BY 8 Hypertension, malignant MOUTH NIGHTLY AT BEDTIME. 04/16/2018 Discontinued warfarin (COUMADIN) 5 mg Take 1 tablet 90 tablet 1 tabletIndications: by mouth 8 Chronic atrial daily. fibrillation 02/15/2018 Discontinued furosemide (LASIX) 20 mg Take 1 tablet 60 tablet 3 tabletIndications: by mouth 2 8 Peripheral edema times daily. 05/01/2018 Discontinued simvastatin (ZOCOR) 20 mg TAKE ONE 90 tablet 1 tabletIndications: TABLET BY 8 Hypercholesterolemia MOUTH NIGHTLY AT BEDTIME. 02/18/2018 Discontinued zolpidem (AMBIEN) 5 mg TAKE 1 TABLET 30 tablet 1 TabIndications: Insomnia, BY MOUTH 8 unspecified type NIGHTLY AT BEDTIME. 11/20/2018 Discontinued furosemide (LASIX) 20 mg TAKE 1 TABLET 60 tablet 3 tabletIndications: BY MOUTH 8 Peripheral edema TWICE A DAY 04/01/2018 Discontinued zolpidem (AMBIEN) 5 mg TAKE 1 TABLET 30 tablet 1 TabIndications: Insomnia, BY MOUTH 8 unspecified type EVERYDAY AT BEDTIME 06/25/2018 Discontinued zolpidem (AMBIEN) 5 mg TAKE 1 TABLET 30 tablet 1 TabIndications: Insomnia, BY MOUTH 8 unspecified type EVERYDAY AT BEDTIME. 06/25/2018 Discontinued albuterol 90 Inhale 2 3 Month 0 mcg/actuation Puffs by Supply 8 inhalerIndications: mouth 4 times Edema, unspecified type daily as needed for Wheezing. 06/25/2018 Discontinued zolpidem (AMBIEN) 5 mg TAKE 1 TABLET 30 tablet 1 TabIndications: Insomnia, BY MOUTH 9 unspecified type EVERYDAY AT BEDTIME. 10/15/2018 Discontinued zolpidem (AMBIEN) 5 mg TAKE 1 TABLET 30 tablet 3 TabIndications: Insomnia, BY MOUTH 9 unspecified type EVERYDAY AT BEDTIME. 09/23/2018 albuterol 90 Inhale 2 30 g 3 mcg/actuation Puffs by 9 inhalerIndications: mouth 4 times Edema, unspecified type daily as needed for up to 90 days for Wheezing. 11/20/2018 Discontinued hydroCHLOROthiazide TAKE 1 TABLET 90 tablet 3 (HYDRODIURIL) 25 mg BY MOUTH 9 tabletIndications: DAILY. Essential hypertension Active Problems Problem Noted Date Combined form of age-related cataract, right eye 10/06/2018 Overview: Added automatically from request for surgery [id number] Pacemaker in place 07/29/2017 Foot swelling 04/01/2016 NS (nuclear sclerosis) 01/12/2014 Hyperopia with astigmatism and presbyopia 01/12/2014 Afib 05/11/2012 Peripheral edema 10/10/2006 Venous stasis 10/10/2006 Hypertension, malignant 02/27/2006 Unspecified constipation 02/27/2006 CAD (coronary artery disease), autologous vein bypass graft 02/27/2006 Hypercholesterolemia 02/27/2006 Encounters Care Team Description Date Type Specialty Gwen Brooks MD SOB (shortness of breath) 11/20/2018 Ancillary Radiology Procedure Gwen Brooks MD SOB (shortness of breath) (Primary Dx); Peripheral edema; Insomnia, unspecified type; Cardiac resynchronization therapy 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; Chronic atrial fibrillation; Essential hypertension 11/20/2018 Office Visit Family Practice 11/20/2018 Travel Steven Santillan RN Pre-clinic Chart Review; Other (Call back re- message left for CNCM on 10/19/18) 10/20/2018 Telephone Social Work Salima Melendez RN Insomnia, unspecified type 10/12/2018 Refill Family Practice Carmencita Phillip RN Appointment Related Questions 10/07/2018 Telephone Ophthalmology Ethan Alejandre MD Kim, Gene, MD Combined form of age-related cataract, right eye (Primary Dx) 10/06/2018 Office Visit Ophthalmology 10/06/2018 Travel Earl Montes MD Essential hypertension 07/29/2018 Refill [facility] Earl Montes MD 07/06/2018 Hospital Encounter Michel Thompson MD Localized edema 06/25/2018 Ancillary Radiology Procedure Michel Thompson MD Psychophysiological insomnia (Primary Dx); Insomnia, unspecified type; Localized edema; Edema, Lungs, unspecified type 06/25/2018 Office Visit Pulmonology 06/25/2018 Travel Earl Montes MD Insomnia, unspecified type 06/22/2018 Refill [facility] Elizabeth Lam RN Insomnia, unspecified type 06/22/2018 Refill [facility] Earl Montes MD Hypertension, malignant 06/18/2018 Refill [facility] Earl Montes MD Hypertension, malignant 05/30/2018 Refill [facility] Earl Montes MD Hypercholesterolemia 05/01/2018 Refill [facility] Earl Montes MD Chronic atrial fibrillation 04/16/2018 Refill [facility] Earl Montes MD 04/15/2018 Ancillary Radiology Procedure Earl Montes MD Edema, Lungs, unspecified type (Primary Dx); Pleural effusion on left 04/15/2018 Office Visit Family Practice Earl Montes MD 04/01/2018 Ancillary Radiology Procedure Earl Montes MD SOB (shortness of breath) (Primary Dx); Hypertension, malignant; Coronary artery disease involving autologous vein coronary bypass graft without angina pectoris; Foot swelling; Chronic atrial fibrillation; Insomnia, unspecified type; Needs flu shot 04/01/2018 Office Visit [facility] Earl Montes MD Hypertension, malignant (Primary Dx); Coronary artery disease involving autologous vein coronary bypass graft without angina pectoris; Chronic atrial fibrillation; S/P laparoscopic cholecystectomy; Foot swelling; Primary insomnia; Needs flu shot 03/18/2018 Office Visit [facility] Earl Montes MD Gastroesophageal reflux disease without esophagitis 02/28/2018 Refill [facility] Earl Montes MD Insomnia, unspecified type 02/18/2018 Refill [facility] Earl Montes MD Peripheral edema 02/15/2018 Refill [facility] after 01/14/2018 Immunizations Name Administration Dates Next Due Influenza Vaccine 04/25/2014, 04/15/2011 Influenza Vaccine, 07/29/2017 (Deferred: Patient already had this Seasonal, Injectable immunization - Patient already received vaccine last year 2017 does not recall the month) Influenza, 03/18/2018 [...] Grandmother Sister Alive Son Alive Social History Date Tobacco Use Types Packs/Day Years Used Never Smoker Smokeless Tobacco: Never Used Tobacco Cessation: Counseling Given: No Drinks/Week oz/Week Comments Alcohol Use NO INSIGHT REFERRAL NEEDED No Food Insecurity Answer Date Recorded Within the past 12 months, you worried that your Never true 10/06/2018 food would run out before you got money to buy more. Within the past 12 months, the food you bought Never true 10/06/2018 just didn't last and you didn't have money to get more. Sex Assigned at Date Recorded Not on file Industry Job Start Date Occupation Not on file Not on file Not on file Travel End Travel History Travel Start No recent travel history available. 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 ASSISTANT Oxygen Saturation - - Inhaled Oxygen Concentration 93.5 kg (206 lb 3.2 oz) 11/20/2018 9:44 AM CDT Weight 182.9 cm (6') 11/20/2018 9:44 AM CDT Height 27.97 11/20/2018 9:44 AM CDT Body Mass Index Plan of Treatment Care Team Description Date Type Specialty Brant Florian Jr., MD [address] [place] [id number] Waitlist patient- 1wk lab f/u from 11/0802/04/2019 Office Visit Family Practice Refer to Financial Counselor to complete Pre-Registration forms/process 04/02/2019 Office Visit Ophthalmology Olinda Malik NP [address] [place] [address] [id number] [place], [place] [id number] eye 07/01/2019 Appointment Anesthesiology Ethan Alejandre MD [address] [place], [place] [id number] 07/21/2019 Hospital Encounter Health Maintenance Due Date Last Done Comments CORONARY ARTERY DISEASE 08/26/2018 08/26/2017, 04/17/2016, 02/02/2015, AGE 18 AND UP Additional history exists IMM Pneumococcal Age 64 Completed 04/03/2010 (Previously completed - and Up External) Procedures Comments Procedure Name Priority Date/Time Associated Diagnosis XRAY CHEST 2 VIEWS Routine 11/20/2018 SOB (shortness of breath) 11:45 AM CDT CBC Routine 11/20/2018 Essential hypertension 11:29 AM CDT PT/INR Routine 11/20/2018 Chronic atrial 11:29 AM CDT fibrillation HEMOGLOBIN A1C Routine 11/20/2018 Essential hypertension 11:29 AM CDT CBC/DIFF Routine 11/20/2018 Essential hypertension 11:29 AM CDT BASIC METABOLIC PANEL Routine 11/20/2018 Essential hypertension 11:29 AM CDT LIVER PROFILE Routine 11/20/2018 Essential hypertension 11:29 AM CDT PULMONARY FUNCTION TEST Routine 07/06/2018 1:48 PM RETAIL EVENT AND SALES ASSISTANT XRAY CHEST 2 VIEWS Routine 06/25/2018 Localized edema 2:00 PM [employer]AIL EVENT AND SALES ASSISTANT XRAY CHEST 2 VIEWS Routine 04/15/2018 Pleural effusion on left 10:30 AM RETAIL EVENT AND SALES ASSISTANT XRAY CHEST 2 VIEWS Routine 04/01/2018 SOB (shortness of breath) 11:17 AM CDT BASIC METABOLIC PANEL Routine 04/01/2018 Hypertension, malignant 11:11 AM CDT CBC/DIFF Routine 04/01/2018 SOB (shortness of breath) 11:11 AM CDT after 01/14/2018 Results * XRAY CHEST 2 VIEWS (11/20/2018 11:45 AM CDT) Only the most recent of 4 results within the time period is included. Specimen Impressions Performed At IMPRESSION: SMS 1.Interval progression of the large left pleural effusion, now loculated with adjacent basilar atelectasis. Again, due to concerns for malignancy, recommend CT chest for further evaluation. 2.New small left layering pleural effusion. 3.Mild diffuse interstitial edema 4.Increased nonspecific hazy airspace opacifications of the right lower lobe, which could represent edema versus atelectasis. 5.Cardiomegaly. Dictated By: Ramila Hsu DO, 11/20/2018 2:35 PM I have reviewed the study and agree with the findings in this report. Signed By: Beth West MD, 11/23/2018 10:54 AM Narrative Performed At EXAMINATION:XRAY CHEST 2 VIEWS SMS INDICATION: pleural effusions left, follow up, SOB COMPARISON:Chest x-ray 06/25/2018 FINDINGS: TUBES and LINES:Stable pacemaker with single lead projecting approximate right ventricle. LUNGS:Lungs are well inflated.Left lower lobe airspace opacifications adjacent to the pleural effusion. Mild diffuse interstitial opacifications PLEURA:No pneumothorax. Interval progression of the left large pleural effusion on the now loculated. Small left layering pleural effusion HEART AND MEDIASTINUM:The cardiomediastinal silhouette is enlarged. Median sternotomy wires. Atherosclerotic calcifications of the thoracic aorta. Increased nonspecific hazy airspace opacifications of the right lower lobe. BONES AND SOFT TISSUES:No acute osseous lesion.Soft tissues are unremarkable. UPPER ABDOMEN: No free air under the diaphragm. Procedure Note Interface, Rad/Mammog In - 11/23/2018 11:00 AM CDT EXAMINATION: XRAY CHEST 2 VIEWS INDICATION: pleural effusions left, follow up, SOB COMPARISON: Chest x-ray 06/25/2018 FINDINGS: TUBES and LINES: Stable pacemaker with single lead projecting approximate right ventricle. LUNGS: Lungs are well inflated. Left lower lobe airspace opacifications adjacent to the pleural effusion. Mild diffuse interstitial opacifications PLEURA: No pneumothorax. Interval progression of the left large pleural effusion on the now loculated. Small left layering pleural effusion HEART AND MEDIASTINUM: The cardiomediastinal silhouette is enlarged. Median sternotomy wires. Atherosclerotic calcifications of the thoracic aorta. Increased nonspecific hazy airspace opacifications of the right lower lobe. BONES AND SOFT TISSUES: No acute osseous lesion. Soft tissues are unremarkable. UPPER ABDOMEN: No free air under the diaphragm. IMPRESSION IMPRESSION: 1. Interval progression of the large left pleural effusion, now loculated with adjacent basilar atelectasis. Again, due to concerns for malignancy, recommend CT chest for further evaluation. 2. New small left layering pleural effusion. 3. Mild diffuse interstitial edema 4. Increased nonspecific hazy airspace opacifications of the right lower lobe, which could represent edema versus atelectasis. 5. Cardiomegaly. Dictated By: Ramila Hsu DO, 11/20/2018 2:35 PM I have reviewed the study and agree with the findings in this report. Signed By: Beth West MD, 11/23/2018 10:54 AM Performing Organization Address City/State/Zipcode Phone Number SMS * CBC (11/20/2018 11:29 AM CDT) WBC 5.2 4.5 - 12.0 K/uL [facility] RBC 4.73 4.60 - 6.20 M/uL [facility] Hemoglobin 13.1 (L) 14.0 - 18.0 g/dL [facility] Hematocrit 42.1 40.0 - 54.0 % [facility] MCV 89.0 82.0 - 92.0 fL [facility] MCH 27.7 27.0 - 31.0 pg [facility] MCHC 31.1 (L) 32.0 - 36.0 g/dL [facility] RDW 48.5 (H) 35.1 - 43.9 fL [facility] Platelet 170 150 - 400 K/uL [facility] Mean Platelet 11.0 9.4 - 12.4 fL [facility] Volume [facility] Percent NRBC 0.0 % [facility] Neutrophil 61.1 34.0 - 67.9 % [facility] Lymphocyte 22.8 21.8 - 50.0 % [facility] Monocyte 8.3 5.3 - 12.0 % [facility] Eosinophil 7.0 (H) 0.8 - 5.0 % [facility] Basophil 0.8 0.2 - 1.2 % [facility] Pct Immat Gran 0.0 0.0 - 0.5 % [facility] Neutrophil, Abs 3.16 1.78 - 5.36 K/uL [facility] Lymphocyte, Abs 1.18 (L) 1.32 - 3.57 K/uL [facility] Monocyte, Abs 0.43 0.30 - 0.82 K/uL [facility] Eosinophil, Abs 0.36 0.04 - 0.54 K/uL [facility] Basophil, Abs 0.04 0.01 - 0.08 K/uL [facility] Absol Immat 0.00 0.00 - 0.03 K/uL [facility] Gran [facility] Absolute 0.00 K/uL [facility] NRBC-[facility] Specimen Blood Performing Organization Address City/[facility] Phone Number [facility] [address] [place] [address] * HEMOGLOBIN A1C (11/20/2018 11:29 AM CDT) Hemoglobin A1c 5.9 4.3 - 6.1 % [facility] Estimated 123 (H) 70 - 110 mg/dL [facility] Average Glucose [facility] Specimen Blood Performing Organization Address [facility] Phone Number [facility] [address] [place] [address] * PT/INR (11/20/2018 11:29 AM CDT) PT 18.6 (H) 11.8 - 15.0 Seconds [facility] INR 1.6 Refer to INR ranges [facility] Comment: [facility] 2.0 - 3.0 for moderate intensity anticoagulation 2.5 - 3.5 for high intensity anticoagulation Specimen Blood Performing Organization Address [facility] Phone Number [facility] [address] [place] [address] * LIVER PROFILE (11/20/2018 11:29 AM CDT) Total Protein 7.4 6.0 - 8.3 g/dL [facility] Total Bilirubin 0.8 0.2 - 1.2 mg/dL [facility] Alkaline 54 34 - 104 U/L [facility] Phosphatase [facility] AST 10 (L) 13 - 39 U/L [facility] Direct 0.2 0.0 - 0.2 mg/dL [facility] Bilirubin [facility] ALT 7 7 - 52 U/L [facility] Albumin 3.9 (L) 4.2 - 5.5 g/dL [facility] Specimen Blood Performing Organization Address [facility] Phone Number [facility] [address] [place] [address] * BASIC METABOLIC PANEL (11/20/2018 11:29 AM CDT) Only the most recent of 2 results within the time period is included. Sodium 140 136 - 145 mmol/L [facility] Potassium 3.2 (L) 3.5 - 5.1 mmol/L [facility] Chloride 99 98 - 107 mmol/L [facility] CO2 31 21 - 31 mmol/L [facility] Urea Nitrogen 15.0 7.0 - 25.0 mg/dL [facility] Creatinine 0.7 0.7 - 1.3 mg/dL [facility] Glucose 109 70 - 110 mg/dL [facility] Calcium, Total 9.9 8.6 - 10.3 mg/dL [facility] GFR, Estimated >60 mL/min/1.73 m2 [facility] Anion Gap 10 5 - 16 mmol/L [facility] Specimen Blood Performing Organization Address [facility] Phone Number [facility] [address] [place] [address] * PULMONARY FUNCTION TEST (07/06/2018 1:48 PM RETAIL EVENT AND SALES ASSISTANT) Specimen * CBC/DIFF (04/01/2018 11:11 AM CDT) WBC 5.0 4.5 - 12.0 K/uL [facility] RBC 4.10 (L) 4.60 - 6.20 M/uL [facility] Hemoglobin 12.0 (L) 14.0 - 18.0 g/dL [facility] Hematocrit 38.6 (L) 40.0 - 54.0 % [facility] MCV 94 (H) 82 - 92 fL [facility] MCH 29.3 27.0 - 31.0 pg [facility] MCHC 31.1 (L) 32.0 - 36.0 g/dL [facility] RDW 52.7 (H) 35.1 - 43.9 fL [facility] Platelets 203 150 - 400 K/uL [facility] Mean Platelet 10.6 9.4 - 12.4 fL [facility] Volume 2 Percent NRBC 0.4 [facility] Absolute NRBC 0.02 [facility] Neutrophils 53.3 34.0 - 67.9 % [facility] Lymphs 31.7 21.8 - 50.0 % [facility] Monocytes 10.4 5.3 - 12.0 % [facility] Eos 3.4 0.8 - 5.0 % [facility] Basos 0.8 0.2 - 1.2 % [facility] 2 Immature 0.4 0.0 - 0.5 [facility] Granulocytes 2 Neutrophils 2.66 1.78 - 5.36 K/uL [facility] (Absolute) 2 Lymphs 1.58 1.32 - 3.57 K/uL [facility] (Absolute) 2 Monocytes(Absol 0.52 0.30 - 0.82 K/uL [facility] [place] 2 Eos (Absolute) 0.17 0.04 - 0.54 K/uL [facility] 2 Baso (Absolute) 0.04 0.01 - 0.08 K/uL [facility] 2 Immature Grans 0.02 0.00 - 0.03 K/uL [facility] (Abs) 2 Specimen Blood Performing Organization Address City/State/Zipcode Phone Number [facility] after 01/14/2018 Insurance Type Payer Benefit Subscriber ID Effective Phone Address Plan / Dates Group MEDICARE MEDICARE xxxxxxxxxxx 1999-P [phone] [id number] [place] [address] [facility] FINANCIAL 2019-2 [address] [facility] / [place] [address]
[2019-01-15] MEDS ORDERED: ASPIRIN 81 MG CHEW TAB PO ONE (12:15)
[2019-01-15 12:57] LABS: BASOPHILS % 0.2 % (0.0-1.0); EOSINOPHILS # (AUTO) 0.2 (0.0-0.4); EOSINOPHILS % 3.3 % (0.0-6.0); HEMATOCRIT 38.6 % (38.2-49.6); HEMOGLOBIN 12.3 g/dL (14.0-18.0); LYMPHOCYTES # (AUTO) 0.8 (1.0-3.2); LYMPHOCYTES % 13.6 % (18.0-39.1); MEAN CORPUSCULAR HEMOGLOBIN 28.6 pg (28-32); MEAN CORPUSCULAR HGB CONC 31.9 g/dL (31-35); MEAN CORPUSCULAR VOLUME 89.8 fL (81-99); MONOCYTES # (AUTO) 0.5 (0.2-0.8); MONOCYTES % 8.2 % (4.4-11.3); NEUTROPHILS # (AUTO) 4.1 (2.1-6.9); NEUTROPHILS % 74.3 % (38.7-80.0); PLATELET COUNT 178 x10e3/uL (140-360); RED CELL DISTRIBUTION WIDTH 14.8 % (11.7-14.4)
[2019-01-15 13:08] LABS: PROTHROMBIN TIME 31.9 seconds (11.9-14.5)
[2019-01-15 13:17] LABS: ALANINE AMINOTRANSFERASE 13 IU/L (0-55); ALBUMIN 3.3 g/dL (3.5-5.0); ALBUMIN/GLOBULIN RATIO 0.8 (0.8-2.0); ALKALINE PHOSPHATASE 57 IU/L (40-150); ANION GAP 10.6 mmol/L (8-16); BLOOD UREA NITROGEN 15 mg/dL (7-26); BUN/CREATININE RATIO 20 (6-25); CARBON DIOXIDE 30 mmol/L (22-29); CHLORIDE 102 mmol/L (98-107); CREATININE, SERUM 0.75 mg/dL (0.72-1.25); EST GLOMERULAR FILTRATION RATE > 60 ML/MIN (60-); GLUCOSE 109 mg/dL (74-118); POTASSIUM 3.6 mmol/L (3.5-5.1); SODIUM 139 mmol/L (136-145)
--- NOTE | 2019-01-15 13:49 | Diagnostic Imaging Report ---
EXAMINATION: CHEST 2 VIEWS INDICATION: Chest pain COMPARISON: Chest radiograph 04/28/2018 FINDINGS: LINES/TUBES:Left chest single lead pacer with leads projecting over the right ventricle. EKG leads overlie the chest. LUNGS:The right lung is hyperinflated. Volume loss of the left lower lobe with left basilar patchy airspace opacity. PLEURA:Moderate left pleural effusion. Small right pleural effusion. MEDIASTINUM:Cardiomediastinal silhouette is stably enlarged. Postoperative findings of CABG. Atherosclerotic calcifications of the thoracic aorta. BONES/SOFT TISSUES:No acute osseous injury. ABDOMEN:No free air under the diaphragm. IMPRESSION: Moderate left pleural effusion. Small right pleural effusion. Patchy opacity at the left lung base more likely represent associated subsegmental atelectasis, however superimposed aspiration or pneumonia could also have this appearance in the proper clinical setting. Unchanged cardiomegaly. Signed by: Adam Webb MD on 01/15/2019 1:46 PM
[2019-01-15] MEDS ORDERED: SODIUM CHLORIDE FLUSH 10 ML SYR INJ PRN (14:00)
--- OUTSIDE RECORDS SUMMARY | 2019-01-15 14:08 | XMS REPORT | Clinical Summary ---
Author Author [facility] Organization [facility] Address Unknown Phone Unavailable Care Team Providers Care Demand Planner Name Role Phone Gwen Brooks MD PCP [...] Overview: Added automatically from request for surgery [id number] Pacemaker in place 07/29/2017 Foot swelling 04/01/2016 [...] Insomnia, unspecified type; Cardiac resynchronization therapy pacemaker (TICKET SELLER-P) in place; Chronic atrial fibrillation; Essential hypertension [...] Earl Montes MD Essential hypertension 07/29/2018 Refill [facility] Earl Montes MD 07/06/2018 Hospital Encounter Michel Thompson MD Localized edema 06/25/2018 Ancillary Radiology Procedure Michel Thompson MD Psychophysiological insomnia (Primary Dx); Insomnia, unspecified type; Localized edema; Edema, Lungs, unspecified type 06/25/2018 Office Visit Pulmonology 06/25/2018 Travel Earl Montes MD Insomnia, unspecified type 06/22/2018 Refill [facility] Elizabeth Lam RN Insomnia, unspecified type 06/22/2018 Refill [facility] Earl Montes MD Hypertension, malignant 06/18/2018 Refill [facility] Earl Montes MD Hypertension, malignant 05/30/2018 Refill [facility] Earl Montes MD Hypercholesterolemia 05/01/2018 Refill [facility] Earl Montes MD Chronic atrial fibrillation 04/16/2018 Refill [facility] Earl Montes MD 04/15/2018 Ancillary Radiology [...] type; Needs flu shot 04/01/2018 Office Visit [facility] Earl Montes MD Hypertension, malignant (Primary Dx); Coronary artery disease involving autologous vein coronary bypass graft without angina pectoris; Chronic atrial fibrillation; S/P laparoscopic cholecystectomy; Foot swelling; Primary insomnia; Needs flu shot 03/18/2018 Office Visit [facility] Earl Montes MD Gastroesophageal reflux disease without esophagitis 02/28/2018 Refill [facility] Earl Montes MD Insomnia, unspecified type 02/18/2018 Refill [facility] Earl Montes MD Peripheral edema 02/15/2018 Refill [facility] after 01/14/2018 Immunizations Name Administration Dates [...] CDT Respiratory Rate 96% 06/25/2018 10:00 AM PRODUCT DEVELOPMENT DIRECTOR Oxygen Saturation - - Inhaled Oxygen Concentration 93.5 kg (206 lb 3.2 oz) 11/20/2018 9:44 AM CDT Weight 182.9 cm (6') 11/20/2018 9:44 AM CDT Height 27.97 11/20/2018 9:44 AM CDT Body Mass Index Plan of Treatment Care Team Description Date Type Specialty Brant Florian Jr., MD [address] [place] [id number] Waitlist patient- 1wk lab f/u from 11/0802/04/2019 Office Visit Family Practice Refer to Financial Counselor to complete Pre-Registration forms/process 04/02/2019 Office Visit Ophthalmology Olinda Malik NP [address] [place] [address] [id number] [place], [place] [id number] eye 07/01/2019 Appointment Anesthesiology Ethan Alejandre MD [address] [place], [place] [id number] 07/21/2019 Hospital Encounter Health Maintenance Due Date [...] PULMONARY FUNCTION TEST Routine 07/06/2018 1:48 PM PRODUCT DEVELOPMENT DIRECTOR XRAY CHEST 2 VIEWS Routine 06/25/2018 Localized edema 2:00 PM PRODUCT DEVELOPMENT DIRECTOR XRAY CHEST 2 VIEWS Routine 04/15/2018 Pleural effusion on left 10:30 AM PRODUCT DEVELOPMENT DIRECTOR XRAY CHEST 2 VIEWS Routine 04/01/2018 SOB [...] [facility] Specimen Blood Performing Organization Address City/[facility] Phone Number [facility] [address] [place] [address] * HEMOGLOBIN A1C (11/20/2018 11:29 AM CDT) Hemoglobin A1c 5.9 4.3 - 6.1 % [facility] Estimated 123 (H) 70 - 110 mg/dL [facility] Average Glucose LABORATORY Specimen Blood Performing Organization Address [facility] Phone Number [facility] [address] [place] [address] * PT/INR (11/20/2018 11:29 AM CDT) PT 18.6 (H) 11.8 - 15.0 Seconds [facility] INR 1.6 Refer to INR ranges [facility] Comment: LABORATORY 2.0 - 3.0 for moderate intensity anticoagulation 2.5 - 3.5 for high intensity anticoagulation Specimen Blood Performing Organization Address [facility] Phone Number [facility] [address] [place] [address] * LIVER PROFILE (11/20/2018 11:29 [...] [facility] Specimen Blood Performing Organization Address [facility] Phone Number [facility] [address] [place] [address] * BASIC METABOLIC PANEL (11/20/2018 [...] Creatinine 0.7 0.7 - 1.3 mg/dL [facility] Glucose 109 70 - 110 mg/dL [facility] Calcium, Total 9.9 8.6 - 10.3 mg/dL [facility] GFR, Estimated >60 mL/min/1.73 m2 [facility] Anion Gap 10 5 - 16 mmol/L [facility] Specimen Blood Performing Organization Address [facility] Phone Number [facility] [address] [place] [address] * PULMONARY FUNCTION TEST (07/06/2018 1:48 PM PRODUCT DEVELOPMENT DIRECTOR) Specimen * CBC/DIFF (04/01/2018 11:11 AM CDT) [...] 0.52 0.30 - 0.82 K/uL BT MAIN-STATION [place]) 2 Eos (Absolute) 0.17 0.04 - 0.54 K/uL BT MAIN-STATION 2 Baso (Absolute) 0.04 0.01 - 0.08 K/uL BT MAIN-STATION 2 Immature Grans 0.02 0.00 - 0.03 K/uL BT MAIN-STATION (Abs) 2 Specimen Blood Performing Organization Address City/State/Zipcode Phone Number [facility] MAIN-STATION 2 after 01/14/2018 Insurance Type Payer Benefit Subscriber ID Effective Phone Address Plan / Dates Group MEDICARE MEDICARE xxxxxxxxxxx 1999-P [phone] [address] & B resent [id number] [facility] PLAN FINANCIAL 2019-2 [id number] [facility] / [place] [address]
[2019-01-15 14:25] LABS: CREATINE KINASE MB 1.6 ng/mL (0-5.0)
--- NOTE | 2019-01-15 15:01 | NUR ---
UNABLE TO OBTAIN MED LIST AT THIS TIME.
--- NOTE | 2019-01-15 16:29 | NUR ---
Patient admitted to unit from ER. patient arrived via stretcher. patient is AAOx3. Some forgetfulness at times. Lung adams diminished to auscultation. Some shortness of breath noted at rest and exertion. Patient amble to ambulate with assistance. Bowel sounds present x4. 4+ pitting edema noted to BLE. Right lower extremity worse than the left. Some weeping noted to kelly area. Right foot bruised and has a small open area on top of foot. Calloused heels noted. Left wrist 20G IV in place.
--- NOTE | 2019-01-15 16:30 | NUR ---
pt admitted to 111
[2019-01-15 16:51] VITALS: BP 163/72
[2019-01-15 17:06] VITALS: BP 163/72
[2019-01-15] MEDS ORDERED: ULTRAM50 MG PO (17:39)
--- NOTE | 2019-01-15 19:50 | NUR ---
SPOKE WITH MD Lisbeth SUGGS FOR ORDERS TO RESTART HOME MEDS AND ADD PAIN MEDICATION. NEW ORDERS RECEIVED.
[2019-01-15 20:00] VITALS: BP 115/61
[2019-01-15] MEDS ORDERED: HYDROCODONE/APAP 7.5MG-325MG 1 EA TAB PO PRN (20:00)
[2019-01-15] MEDS ORDERED: TRAMADOL HCL 50 MG TAB PO PRN (20:00)
--- NOTE | 2019-01-15 20:44 | Diagnostic Imaging Report ---
Exam: Right foot series, 3 views. Clinical History: Jaren right foot, pain Comparison: None. Findings: 3 views of the right foot. There is decreased bone mineralization, which limits evaluation of the bony structures. . Negative for acute, displaced fracture or dislocation. Joint space narrowing/degenerative changes in the distal interphalangeal joints and to a lesser degree mid foot/hindfoot joints. Large anterior and posterior calcaneal enthesophytes Marked soft tissue swelling in the dorsal aspect of the foot. Impression: 1. Decreased bone mineralization, which limits evaluation of the bony structures. No acute, displaced fracture or dislocation, within the limitations of the study. 2. Marked soft tissue swelling in the dorsal aspect of the foot. Signed by: Dr. Evangelist Callahan M.D. on 01/15/2019 8:41 PM
[2019-01-15 20:47] VITALS: BP 115/61
[2019-01-15 20:53] LABS: CREATINE KINASE MB 1.5 ng/mL (0-5.0)
[2019-01-15] MEDS ORDERED: SODIUM CHLORIDE 0.9% 250ML 250 ML ONE (20:56)
[2019-01-15] MEDS: DOXAZOSIN MESYLATE 2 MG TAB PO SCH (21:00)
[2019-01-15] MEDS ORDERED: DOXAZOSIN MESYLATE 8 MG PO SCH (21:00)
[2019-01-15] MEDS: FUROSEMIDE INJ 10 MG/ML 4 ML VIAL IV SCH (21:10)
[2019-01-15] MEDS: CEFTRIAXONE SOD 1 GM/NS 50 ML 50 ML IV SCH (21:10)
[2019-01-15] MEDS: SIMVASTATIN 20 MG TAB PO SCH (21:10)
--- NOTE | 2019-01-15 21:10 | NUR ---
ASKED PATIENT IF HE TAKES DOXAZOSIN FOR BLOOD PRESSURE OR FOR HIS PROSTATE. HE STATED HE BELIEVED IT WAS FOR BLOOD PRESSURE. EXPLAINED HIS BP IS MUCH LOWER THAN PREVIOUS, AND GIVING IV LASIX AND IT COULD DROP HIS PRESSURE LOWER. PATIENT STATED HE DID NOT WANT TO RISK HIS BP DROPPING TOO MUCH AND REFUSED MEDICATION.
[2019-01-15] MEDS: AZITHROMYCIN 500MG/NS 250 ML 250 ML IV SCH (21:55)
--- NOTE | 2019-01-15 22:17 | NUR ---
SPOKE WITH MD SUGGS REGARDING RESULTS OF FOOT XRAY AND DOPPLER, WHICH WAS POSITIVE FOR A BLOOD CLOT. NO NEW ORDERS AT THIS TIME.
[2019-01-16] VITALS (8 sets, daily range): BP systolic 118–146; BP diastolic 60–72
--- NOTE | 2019-01-16 03:00 | NUR ---
PATIENT RESTING IN BED, EASILY AROUSED. NO PAIN REPORTED. BREATHING EVEN AND NON-LABORED. BED LOCKED IN LOWEST POSITION, SIDE RAILS UPX2, CALL LIGHT IN REACH.
--- NOTE | 2019-01-16 07:14 | NUR ---
Received patient lying in bed with HOB elevated. Awake and alert. Respiration even and unlabored. Call light within reach.
--- NOTE | 2019-01-16 07:14 | NUR ---
Dorsalis pedis pulse weak on palpation. BLE swelling. Right lower extremities and right foot swelling and weeping. No signs and symptoms of distress noted. Call light within reach.
[2019-01-16 07:19] LABS: CREATINE KINASE MB 1.4 ng/mL (0-5.0)
[2019-01-16 07:41] LABS: BASOPHILS % 0.6 % (0.0-1.0); EOSINOPHILS # (AUTO) 0.2 (0.0-0.4); EOSINOPHILS % 4.9 % (0.0-6.0); HEMATOCRIT 35.4 % (38.2-49.6); HEMOGLOBIN 11.3 g/dL (14.0-18.0); LYMPHOCYTES # (AUTO) 0.6 (1.0-3.2); LYMPHOCYTES % 11.7 % (18.0-39.1); MEAN CORPUSCULAR HEMOGLOBIN 28.8 pg (28-32); MEAN CORPUSCULAR HGB CONC 31.9 g/dL (31-35); MEAN CORPUSCULAR VOLUME 90.1 fL (81-99); MONOCYTES # (AUTO) 0.4 (0.2-0.8); MONOCYTES % 9.2 % (4.4-11.3); NEUTROPHILS # (AUTO) 3.4 (2.1-6.9); NEUTROPHILS % 73.2 % (38.7-80.0); PLATELET COUNT 160 x10e3/uL (140-360); RED BLOOD COUNT 3.93 x10e6/uL (4.3-5.7); RED CELL DISTRIBUTION WIDTH 14.7 % (11.7-14.4)
[2019-01-16 07:42] LABS: ALANINE AMINOTRANSFERASE 11 IU/L (0-55); ALBUMIN/GLOBULIN RATIO 0.8 (0.8-2.0); ALKALINE PHOSPHATASE 52 IU/L (40-150); ANION GAP 11.8 mmol/L (8-16); BLOOD UREA NITROGEN 12 mg/dL (7-26); BUN/CREATININE RATIO 17 (6-25); CALCIUM 9.7 mg/dL (8.4-10.2); CARBON DIOXIDE 30 mmol/L (22-29); CHLORIDE 104 mmol/L (98-107); CREATININE, SERUM 0.69 mg/dL (0.72-1.25); EST GLOMERULAR FILTRATION RATE > 60 ML/MIN (60-); GLUCOSE 104 mg/dL (74-118); POTASSIUM 3.8 mmol/L (3.5-5.1); SODIUM 142 mmol/L (136-145)
[2019-01-16 07:55] LABS: INR 3.51
--- NOTE | 2019-01-16 08:31 | History and Physical ---
CHIEF COMPLAINT: Leg swelling and dyspnea. HISTORY OF PRESENT ILLNESS: The patient is an 83-year-old man. He has a history of prior cardiac disease including a coronary artery bypass grafting, atrial fibrillation, and systolic congestive heart failure. He was hospitalized in late December at [facility] with cholelithiasis and acute gallstone pancreatitis. He had a left pleural effusion at that time that required thoracentesis. He required hydration, antibiotics, and transfer to a assisted facility. After stay at the assisted facility, he was subsequently transferred back to home. He now complains of increasing right leg pain. He notes swelling that he states is new and is related to something falling on his leg. He also complains of some dyspnea. He does not complain of chest pain or fevers. He has no abdominal pain. He has no nausea or vomiting. PAST SURGICAL HISTORY: 1. Status post coronary artery bypass grafting. 2. Status post pacemaker and AICD placement. 3. Status post ERCP with stone extraction for gallstone pancreatitis. PAST MEDICAL HISTORY: 1. Atrial fibrillation. 2. Systolic congestive heart failure. 3. COPD. 4. Nephrolithiasis. ALLERGIES: THE PATIENT REPORTS AN ADVERSE REACTION TO THE [place] INHIBITORS. SOCIAL HISTORY: The patient is not an active smoker or drinker. REVIEW OF SYSTEMS: He denies fever or headache. He is not having any neck pain. He denies sore throat. He is not complaining of chest pain. He does note some dyspnea. There is minimal cough. He is not having any abdominal pain. He does report right leg swelling. There is some tenderness and erythema. PHYSICAL EXAMINATION: VITAL SIGNS: The patient is afebrile. The blood pressure is 118/70 and the pulse ox is 97%.. The pulse is 61 and respiratory rate is 18. HEENT: Shows no facial swelling or erythema. CARDIAC: Reveals regular rate and rhythm with normal S1, S2. There are no murmurs or rubs. LUNGS: auscultation of lungs shows decreased breath sounds on the left side. ABDOMEN: Soft, nontender. There is no rebound or guarding. EXTREMITIES: Examination of the extremities shows right leg edema with some erythema and a few bullous lesions on the skin. There is a good peripheral pulse. LABORATORY DATA: White blood cell count is 4.7 and hemoglobin is 11.3. The platelet count is 160. The BUN to creatinine ratio is normal. The other electrolytes are within normal limits. RADIOGRAPHIC DATA: Chest x-ray shows a moderate left pleural effusion. There is cardiomegaly. Venous duplex shows a thrombosis in the common femoral and superficial femoral vein on the right side. IMPRESSION: 1. Acute onset of deep vein thrombosis despite being on anticoagulation. 2. Cellulitis of the right lower extremity. 3. Chronic systolic congestive heart failure. 4. Atrial fibrillation. 5. Recent cholelithiasis and gallstone pancreatitis. PLAN: 1. The patient will have a CT scan of the chest with PE protocol to rule out pulmonary embolism. 2. Hematology consultation because of the recurrent thrombosis despite adequate anticoagulation. 3. Repeat echocardiogram. 4. Continue current cardiac regimen and Lasix at 40 mg IV daily. 5. Continue antibiotics for possible cellulitis. Favian Cantu MD [facility] /[id number]
--- NOTE | 2019-01-16 08:43 | NUR ---
Spoke with INFANT ROOM TEACHER for Dr. miller and she informed that Dr. miller was out of country and she would call Dr. sanchez and inform and see if he wanted to consult anyone else at this time.
[2019-01-16] MEDS: ASPIRIN 325 MG TAB PO SCH (08:55)
[2019-01-16] MEDS: LOSARTAN POTASSIUM 100 MG TAB PO SCH (08:55)
[2019-01-16] MEDS: FUROSEMIDE INJ 10 MG/ML 4 ML VIAL IV SCH ×3 (08:57→21:27)
[2019-01-16] MEDS: HYDROCODONE/APAP 7.5MG-325MG 1 EA TAB PO PRN ×2 (08:58→17:36)
[2019-01-16] MEDS: PANTOPRAZOLE SOD 40 MG TABEC PO SCH ×2 (08:58→16:10)
[2019-01-16] MEDS ORDERED: LOSARTAN POTASSIUM 25 MG TAB PO SCH (09:00)
[2019-01-16] MEDS ORDERED: AMLODIPINE BESYLATE 10 MG TAB PO SCH (09:00)
[2019-01-16] MEDS ORDERED: NON-FORMULARY MEDICATION (Esomeprazole Magnesium (Nexium) 40 MG) PO SCH (09:00)
[2019-01-16 09:09] LABS: EOSINOPHILS % (MANUAL) 5 % (0-7); LYMPHOCYTES % (MANUAL) 8 % (19-48); MONOCYTES % (MANUAL) 13 % (3.4-9.0); NEUTROPHILS % (MANUAL) 74 % (40-74)
[2019-01-16 09:10] LABS: PLATELET ESTIMATE ADEQUATE; PLATELET MORPHOLOGY COMMENT NORMAL; RBC MORPHOLOGY COMMENT NORMAL
[2019-01-16] MEDS ORDERED: IOPAMIDOL 370 MG/ML 200 ML INFUS..BTL INJ ONE (10:06)
[2019-01-16] MEDS ORDERED: SODIUM CHLORIDE 0.9% 50ML 50 ML ONE (10:06)
--- NOTE | 2019-01-16 10:59 | Diagnostic Imaging Report ---
EXAM: CT Chest WITH contrast (PE Protocol) INDICATION: ^Pulmonary Embolism protocol ^[id number] ^0940 COMPARISON: Chest x-ray dated 01/15/2019 TECHNIQUE: Chest was scanned utilizing a multidetector helical scanner from the lung apex through the level of the diaphragm after administration of IV contrast. Thin section reconstructions were obtained with special concentration on the pulmonary arteries. Coronal and sagittal reformations were obtained. Dose modulation, iterative reconstruction, and/or weight based adjustment of the mA/kV was utilized to reduce the radiation dose to as low as reasonably achievable. Pulmonary embolism protocol was performed. IV CONTRAST: 100 mL of Isovue-370 COMPLICATIONS: None RADIATION DOSE: Total DLP: 724.05 mGy*cm Estimated effective dose: (DLP x 0.014 x size factor) mSv CTDIvol has been reviewed. It is below the limits set by the Radiation Protocol Committee (RPC). FINDINGS: LINES/ TUBES: Single lead left chest wall cardiac device in place with distal tip terminating in right ventricle. LUNGS AND AIRWAYS: No filling defect is identified within the pulmonary arteries to the segmental level. Pulmonary vascular congestion and mild interstitial edema. 0.7 cm right apical nodule. Adjacent 3 mm nodule (series 3, image 21). 4 mm right upper lobe nodule (3/45). Mild biapical scarring. 4.5 x 2.6 cm left upper lobe pleural-based consolidation. Airways are normal. PLEURA: Moderate bilateral pleural effusions, left greater right. There is adjacent atelectasis of the most of the left lower lobe and to lesser extent right lower lobe. HEART AND MEDIASTINUM: The thyroid gland is normal. No mediastinal, hilar or axillary lymphadenopathy. The heart is enlarged. There is no pericardial effusion. . Main pulmonary artery measures 3.9 cm in diameter, suggestive of pulmonary hypertension. UPPER ABDOMEN: Cholecystectomy. Small hiatal hernia. BONES: Generalized demineralization. Old fracture deformity of the posterior right eighth rib. Median sternotomy wires. The visualized bony thorax is within normal limits. SOFT TISSUES: Unremarkable. IMPRESSION: No pulmonary emboli. Cardiomegaly and pulmonary vascular congestion. Moderate bilateral pleural effusions, left greater than right. There is atelectasis of the most of the left lower lobe. Left upper lobe pleural-based 4.5 cm consolidation, probably discoid atelectasis. However pulmonary mass cannot be entirely excluded. Recommend attention on short-term follow-up examination. Lung nodules as above. Recommend short-term follow-up in 3 months to ensure stability. Signed by: Dr. Dennis Alva MD on 01/16/2019 10:55 AM
--- NOTE | 2019-01-16 12:07 | Consultation ---
DATE OF CONSULTATION: Cardiology Consultation CHIEF COMPLAINT: The patient is an 83-year-old with swollen right leg. HISTORY OF PRESENT ILLNESS: The patient is an 83-year-old with a history of congestive heart failure and chronic atrial fibrillation. He was admitted with pain and marked swelling in the right leg. Venous duplex was done, which demonstrated acute deep venous thrombosis in the entire superficial femoral vein despite being on Coumadin at home for his atrial fibrillation. The patient is currently well anticoagulated with an INR of 3.5. The patient has had shortness of breath. No chest pain. No fevers. No nausea. No vomiting. The patient is also reporting significant back pain. PAST MEDICAL HISTORY: Significant for: 1. Previous coronary artery bypass grafting. 2. Chronic atrial fibrillation. 3. Known systolic congestive heart failure. 4. Chronic obstructive pulmonary disease. 5. Recent cholecystectomy for gallstone pancreatitis. SOCIAL HISTORY: The patient has not been a smoker. Does not drink. FAMILY HISTORY: There is a known family history of coronary artery disease. PHYSICAL EXAMINATION: GENERAL: The patient is a well-developed, well-nourished male, in no obvious distress. VITAL SIGNS: Included a temperature of 98.8, blood pressure is 120/70, pulse was 60. HEAD, EARS, EYES, NOSE, AND THROAT: The patient's cranium was normocephalic and atraumatic. Extraocular muscles were intact. NECK: Supple. No jugular venous distention. CARDIAC: Demonstrated an irregularly irregular rhythm with a short 2/6 systolic murmur. CHEST: Demonstrated decreased breath sounds and rales bilaterally. ABDOMEN: Demonstrated good bowel sounds. No tenderness and no masses. EXTREMITIES: The patient had 4+ edema of the right leg with erythema and about 2+ edema on the left leg. NEUROLOGIC: The patient was awake and alert. The patient was moving all of his extremities. IMAGING DATA: The patient's EKG demonstrated ventricular pacing. IMPRESSION: The patient is an 83-year-old with known chronic congestive heart failure and chronic atrial fibrillation, is presented with an acute deep venous thrombosis of the right leg. RECOMMENDATIONS: As follows: 1. CT scan of the chest was already done and there was no pulmonary embolism. 2. The patient is already adequately anticoagulated with an INR of 3.5. 3. A Hematology consult has been ordered since the patient has had recurrent deep venous thrombosis despite being adequately anticoagulated. 4. The patient's repeat echocardiogram demonstrated an ejection fraction of 20% so the patient will need to be diuresed heavily with IV Lasix. MD TEAGAN Zarate/ADORE /[id number]
--- NOTE | 2019-01-16 15:01 | NUR ---
Nutrition Screen Note RD Recommendation for Physician: Continue diet as ordered Plan of Care: RD following, monitoring for tolerance and adequacy Nutrition reason for involvement: Nutrition Risk Trigger - MST Primary Diagnose(s): dyspnea PMH: cholecystectomy Ht: 72in Wt:220lb BMI:29.8 kg/m2 IBW:178lb +/-10% RD Assessment: (01/16/2019) Chart reviewed. Labs and meds reviewed. Initial encounter with patient. Pt states that he was eating well TALENT SCOUT, but he has been losing wt since February 2018 after surgery. Pt states that he has no difficulty chewing or swallowing nor has any N,V,D. Pt is able to feed himself. Pt has no known food allergies. Current Diet: Cardiac diet Malnutrition Evaluation (01/16/2019) The patient does not meet criteria for a specified degree of malnutrition at this time. Will re-evaluate at follow-up as appropriate. Diet Education Needs Assessment: Diet education not indicated. Nutrition Care Level: Low Signed: Foreign Vogt RD, LD, [facility]
--- NOTE | 2019-01-16 15:18 | NUR ---
Assisted patient to the toilet with walker. Patient ambulating well without SOB. Call light within reach.
[2019-01-16] MEDS ORDERED: HYDROMORPHONE 1MG/1ML INJ IV NR (19:45)
[2019-01-16] MEDS: CEFTRIAXONE SOD 1 GM/NS 50 ML 50 ML IV SCH (20:13)
[2019-01-16] MEDS: DOXAZOSIN MESYLATE 2 MG TAB PO SCH (21:00)
[2019-01-16] MEDS: AZITHROMYCIN 500MG/NS 250 ML 250 ML IV SCH (21:01)
[2019-01-16] MEDS: SIMVASTATIN 20 MG TAB PO SCH (21:27)
[2019-01-17] VITALS (7 sets, daily range): BP systolic 118–138; BP diastolic 64–68
--- NOTE | 2019-01-17 00:20 | NUR ---
HAS SIVERE BACK PAIN.NOTIFIED TO RECEIVED NEW ORDERS.ASSESSMENT DONE.NO RESP.DISTRESS.VOIDED BLOOD COLORED URINE.BED ALARM ON.BED LOCKED AND IN LOWEST POSITION.PHONE NAD CALL LIGHT WITHIN REACH.INSTRUCTED TO CALL FOR ASSISTANCE NEEDED.
[2019-01-17] MEDS: HYDROCODONE/APAP 7.5MG-325MG 1 EA TAB PO PRN ×3 (03:42→19:35)
[2019-01-17] MEDS ORDERED: FUROSEMIDE INJ 10 MG/ML 4 ML VIAL IV SCH (06:00)
[2019-01-17] MEDS: FUROSEMIDE INJ 10 MG/ML 4 ML VIAL IV SCH ×3 (06:04→21:55)
[2019-01-17 06:06] LABS: BASOPHILS % 0.6 % (0.0-1.0); EOSINOPHILS # (AUTO) 0.3 (0.0-0.4); EOSINOPHILS % 5.7 % (0.0-6.0); HEMATOCRIT 36.9 % (38.2-49.6); HEMOGLOBIN 11.6 g/dL (14.0-18.0); LYMPHOCYTES # (AUTO) 0.7 (1.0-3.2); LYMPHOCYTES % 13.6 % (18.0-39.1); MEAN CORPUSCULAR HEMOGLOBIN 28.4 pg (28-32); MEAN CORPUSCULAR HGB CONC 31.4 g/dL (31-35); MEAN CORPUSCULAR VOLUME 90.4 fL (81-99); MONOCYTES # (AUTO) 0.5 (0.2-0.8); MONOCYTES % 10.3 % (4.4-11.3); NEUTROPHILS # (AUTO) 3.6 (2.1-6.9); NEUTROPHILS % 69.4 % (38.7-80.0); PLATELET COUNT 169 x10e3/uL (140-360); RED BLOOD COUNT 4.08 x10e6/uL (4.3-5.7); RED CELL DISTRIBUTION WIDTH 14.7 % (11.7-14.4)
[2019-01-17 06:18] LABS: ALANINE AMINOTRANSFERASE 11 IU/L (0-55); ALBUMIN 2.9 g/dL (3.5-5.0); ALBUMIN/GLOBULIN RATIO 0.8 (0.8-2.0); ALKALINE PHOSPHATASE 49 IU/L (40-150); AMYLASE 55 U/L (25-125); ANION GAP 11.6 mmol/L (8-16); BLOOD UREA NITROGEN 13 mg/dL (7-26); BUN/CREATININE RATIO 18 (6-25); CALCIUM 9.6 mg/dL (8.4-10.2); CARBON DIOXIDE 32 mmol/L (22-29); CHLORIDE 102 mmol/L (98-107); CREATININE, SERUM 0.71 mg/dL (0.72-1.25); EST GLOMERULAR FILTRATION RATE > 60 ML/MIN (60-); GLUCOSE 107 mg/dL (74-118); LIPASE 4 U/L (8-78); POTASSIUM 3.6 mmol/L (3.5-5.1); SODIUM 142 mmol/L (136-145)
--- NOTE | 2019-01-17 07:03 | NUR ---
BED SIDE SHIFT REPORT GIVEN TO THE ONCOMING RN.WALKING ROUNDS DONE.STABLE CONDITION.
--- NOTE | 2019-01-17 07:27 | NUR ---
Rcvd patient in report this am. Patient is asleep in bed at this time. No s/s of distress noted
[2019-01-17] MEDS: PANTOPRAZOLE SOD 40 MG TABEC PO SCH ×2 (08:30→16:14)
[2019-01-17] MEDS: ASPIRIN 325 MG TAB PO SCH (08:30)
[2019-01-17] MEDS: POTASSIUM CHLORIDE 20 MEQ TAB CR PO SCH (08:30)
[2019-01-17] MEDS: LOSARTAN POTASSIUM 100 MG TAB PO SCH (08:30)
[2019-01-17] MEDS: HYDROMORPHONE 1MG/1ML INJ IV PRN ×2 (10:10→16:14)
[2019-01-17 10:58] LABS: INR 3.12; PROTHROMBIN TIME 32.9 seconds (11.9-14.5)
--- NOTE | 2019-01-17 12:17 | Progress Note ---
DATE: SUBJECTIVE: The patient complains of some back pain. He says, it is not well controlled with [place]. He still has some swelling and pain in his leg. He has received diuretics and has significant diuresis, but is still short of breath. OBJECTIVE: VITAL SIGNS: The blood pressure is 138/66 and the pulse is 68, respiratory rate is 20, and saturation is 97%. HEENT: Shows no facial swelling or erythema. CARDIAC: Reveals regular rate and rhythm with normal S1and S2. LUNGS: Auscultation of lungs shows clear breath sounds bilaterally. There are decreased breath sounds at the bases. ABDOMEN: Soft and nontender. There is no rebound or guarding. EXTREMITIES: Shows 2 to 3+ leg edema. There is some erythema and few bullous lesions. IMPRESSION: 1. [id number]-[id number] systolic congestive heart failure. 2. Deep vein thrombosis. 3. Cellulitis of the right lower extremity. 4. Atrial fibrillation by recent cholelithiasis and gallstone pancreatitis. PLAN: 1. Repeat amylase and lipase. 2. Continue diuretics. 3. Continue anticoagulation. 4. Continue antibiotics. Favian Cantu MD [facility] /[id number]
[2019-01-17] MEDS: CEFTRIAXONE SOD 1 GM/NS 50 ML 50 ML IV SCH (19:37)
[2019-01-17] MEDS: DOXAZOSIN MESYLATE 2 MG TAB PO SCH (20:50)
[2019-01-17] MEDS: SIMVASTATIN 20 MG TAB PO SCH (20:51)
[2019-01-17] MEDS: AZITHROMYCIN 500MG/NS 250 ML 250 ML IV SCH (20:57)
[2019-01-18] VITALS (8 sets, daily range): BP systolic 107–140; BP diastolic 55–74
--- NOTE | 2019-01-18 00:04 | NUR ---
Maintaining npo for us abdomen.voided.bed locked and in lowest position.phone and call light within reach.instructed to call for assistance as needed.
[2019-01-18] MEDS: HYDROMORPHONE 1MG/1ML INJ IV PRN ×2 (04:28→07:27)
[2019-01-18] MEDS: FUROSEMIDE INJ 10 MG/ML 4 ML VIAL IV SCH ×3 (05:57→22:10)
[2019-01-18 06:27] LABS: INR 2.37; PROTHROMBIN TIME 26.6 seconds (11.9-14.5)
[2019-01-18 06:34] LABS: ALANINE AMINOTRANSFERASE 10 IU/L (0-55); ALBUMIN 2.8 g/dL (3.5-5.0); ALBUMIN/GLOBULIN RATIO 0.8 (0.8-2.0); ALKALINE PHOSPHATASE 49 IU/L (40-150); BLOOD UREA NITROGEN 15 mg/dL (7-26); BUN/CREATININE RATIO 19 (6-25); CALCIUM 9.8 mg/dL (8.4-10.2); CARBON DIOXIDE 36 mmol/L (22-29); CHLORIDE 97 mmol/L (98-107); CREATININE, SERUM 0.79 mg/dL (0.72-1.25); EST GLOMERULAR FILTRATION RATE > 60 ML/MIN (60-); GLUCOSE 103 mg/dL (74-118); SODIUM 138 mmol/L (136-145)
[2019-01-18 06:41] LABS: BASOPHILS % 0.3 % (0.0-1.0); EOSINOPHILS # (AUTO) 0.4 (0.0-0.4); EOSINOPHILS % 6.7 % (0.0-6.0); HEMATOCRIT 36.7 % (38.2-49.6); HEMOGLOBIN 11.5 g/dL (14.0-18.0); LYMPHOCYTES # (AUTO) 0.7 (1.0-3.2); LYMPHOCYTES % 11.8 % (18.0-39.1); MEAN CORPUSCULAR HEMOGLOBIN 28.5 pg (28-32); MEAN CORPUSCULAR HGB CONC 31.3 g/dL (31-35); MEAN CORPUSCULAR VOLUME 91.1 fL (81-99); MONOCYTES # (AUTO) 0.6 (0.2-0.8); MONOCYTES % 10.5 % (4.4-11.3); NEUTROPHILS # (AUTO) 4.3 (2.1-6.9); NEUTROPHILS % 70.4 % (38.7-80.0); PLATELET COUNT 185 x10e3/uL (140-360); RED BLOOD COUNT 4.03 x10e6/uL (4.3-5.7); RED CELL DISTRIBUTION WIDTH 14.6 % (11.7-14.4)
--- NOTE | 2019-01-18 07:00 | NUR ---
BEDSIDE ROUNDS COMPLETE NO DISTRESS NOTED, UPDATED ON POC VOICED UNDERSTANDING, L FA 20G NO SS OF INFILTRATION NOTED, NO OTHER CO VOICED CALL LIGHT IN REACH WILL CONTINUE TO MONITOR
--- NOTE | 2019-01-18 07:00 | NUR ---
Bed side shift report given to the oncoming rn.stable condition.
[2019-01-18] MEDS: PANTOPRAZOLE SOD 40 MG TABEC PO SCH ×2 (08:45→17:55)
[2019-01-18] MEDS: LOSARTAN POTASSIUM 100 MG TAB PO SCH (09:13)
[2019-01-18] MEDS: ASPIRIN 325 MG TAB PO SCH (09:13)
[2019-01-18] MEDS: POTASSIUM CHLORIDE 20 MEQ TAB CR PO SCH (09:14)
--- NOTE | 2019-01-18 10:41 | Diagnostic Imaging Report ---
EXAMINATION: CHEST 2 VIEWS INDICATION: Shortness of breath COMPARISON: Chest radiograph of 01/15/2019 FINDINGS: LINES/TUBES:Left chest pacer with lead unchanged. Sternotomy wires in place. EKG leads overlie the chest. LUNGS:The lungs are moderately inflated. Patchy left basilar opacity unchanged. There is perihilar fullness and indistinctness of the pulmonary vasculature. PLEURA:Unchanged moderate left pleural effusion. Small layering right pleural effusion. MEDIASTINUM:Cardiomediastinal silhouette is stably enlarged. Atherosclerotic calcifications of the thoracic aorta. BONES/SOFT TISSUES:No acute osseous injury. ABDOMEN:No free air under the diaphragm. IMPRESSION: Interval increase in pulmonary edema. Stable moderate left pleural effusion and small layering right pleural effusion. Stable cardiomegaly. Signed by: Adam Webb MD on 01/18/2019 10:38 AM
--- NOTE | 2019-01-18 10:52 | Diagnostic Imaging Report ---
EXAM: US ABDOMEN COMPLETE DATE: 01/18/2019 12:00 AM INDICATION: Pancreatitis COMPARISON: None TECHNIQUE: Transverse and longitudinal miller scale and color doppler sonographic images of the upper abdomen were obtained. FINDINGS: There is no evidence of fluid or masses seen in the area of clinical concern in the right lower quadrant. LIVER 15.5 cm in the right midclavicular line. Increased echogenicity of the liver with normal contour, no masses. SPLEEN 11.1 cm in maximum diameter. Normal echogenicity, no masses. GALLBLADDER Status post cholecystectomy. BILE DUCTS No intra nor extra-hepatic biliary dilation. Common bile duct measures 1.0cm PANCREAS: Not well visualized due to overlying bowel gas. RIGHT KIDNEY: 12.4 cm Echogenicity: Slightly increased Collecting System: No hydronephrosis Stones: None Cyst/Mass: Simple anechoic cysts measure 1.7 x 1.4 x 1.4 cm and 5.1 x 4.3 x 4.5 cm. LEFT KIDNEY: 11.9 cm Echogenicity: Slightly increased Collecting System: No hydronephrosis Stones: None Cyst/Mass: None VESSELS: Aorta: Not well-visualized due to overlying bowel gas. Inferior Vena Cava: Visualized portions are normal Main Portal Vein: 1.2 cm, normal size with hepatopetal flow. FREE FLUID: Incidentally noted left pleural effusion. IMPRESSION: Hepatic steatosis. Status post cholecystotomy. Pancreas not well-visualized due to overlying bowel gas. Slightly increased echogenicity of both kidneys. Right renal cysts as above. Small left pleural effusion. Signed by: Adam Webb MD on 01/18/2019 10:49 AM
--- NOTE | 2019-01-18 12:12 | NUR ---
EDUCATED ABOUT IMM, SIGNED, FILED IN CHART, WITH COPY LEFT WITH FAMILY AT BEDSIDE.
--- NOTE | 2019-01-18 14:35 | NUR ---
spoke with dr england re: consult for acute on chronic lumbar spine pain. orders given for xrays of lumbar, will see pt in am.
--- NOTE | 2019-01-18 15:38 | Progress Note ---
DATE: The patient still complains of some dyspnea. He still has lower back pain. This is main complaint. It is not relieved with low-dose Dilaudid. PHYSICAL EXAMINATION: VITAL SIGNS: The patient is afebrile. The blood pressure 121/67, saturation is 96%. HEENT: Shows no facial swelling or erythema. CARDIAC: Reveals regular rate and rhythm with a normal S1, S2. There are no murmurs or rubs. LUNGS: Auscultation of lungs reveals decreased breath sounds at the bases. ABDOMEN: Soft, nontender. There is no rebound or guarding. EXTREMITIES: Examination of the extremities shows leg edema on the right side, but some associated cellulitis. IMPRESSION: 1. Acute on chronic lower back pain. 2. Acute on chronic systolic congestive heart failure. 3. Deep vein thrombosis. 4. Cellulitis of the right lower extremity. 5. Atrial fibrillation. PLAN: 1. Arrange for ultrasound-guided thoracentesis. 2. CT scan of the lower back with contrast to rule out epidural abscess, new fractures or any new pathology. 3. Orthopedic consultation. 4. Continue diuretics. 5. Continue anticoagulation. Favian Cantu MD [facility] /[id number]
[2019-01-18] MEDS: HYDROCODONE/APAP 7.5MG-325MG 1 EA TAB PO PRN ×2 (18:00→23:40)
--- NOTE | 2019-01-18 19:04 | NUR ---
BEDSIDE SHIFT REPORT GIVEN TO ONCOMING RN, PT LEFT IN STABLE CONDITION.
--- NOTE | 2019-01-18 19:10 | NUR ---
Report taken from morning staff Domi.pt is lyeing in the bed.stable condition.
[2019-01-18] MEDS: CEFTRIAXONE SOD 1 GM/NS 50 ML 50 ML IV SCH (20:10)
[2019-01-18] MEDS: ENOXAPARIN INJ 80 MG/0.8 ML SYR SC SCH (21:03)
[2019-01-18] MEDS: AZITHROMYCIN 500MG/NS 250 ML 250 ML IV SCH (21:03)
[2019-01-18] MEDS: SIMVASTATIN 20 MG TAB PO SCH (21:03)
[2019-01-18] MEDS: DOXAZOSIN MESYLATE 2 MG TAB PO SCH (21:10)
--- NOTE | 2019-01-18 22:00 | NUR ---
STABLE CONDIITON.VOIDED.BED ALARM ON.BED ADONAY AND IN LOWEST POSITION.PHONE AND CALL LIGHT WITHIN REACH.INSTRUCTED TO CALL FOR ASSISTANCE NEEDED.
[2019-01-18] MEDS ORDERED: IOPAMIDOL 370 MG/ML 200 ML INFUS..BTL INJ ONE (22:42)
[2019-01-18] MEDS ORDERED: SODIUM CHLORIDE 0.9% 50ML 50 ML ONE (22:42)
[2019-01-19] VITALS (7 sets, daily range): BP systolic 109–158; BP diastolic 61–70
--- NOTE | 2019-01-19 01:15 | NUR ---
MAINTAINING NPO FOR THORACENTESIS.
[2019-01-19] MEDS: FUROSEMIDE INJ 10 MG/ML 4 ML VIAL IV SCH ×3 (05:33→21:10)
[2019-01-19 05:44] LABS: BASOPHILS % 0.5 % (0.0-1.0); EOSINOPHILS # (AUTO) 0.4 (0.0-0.4); EOSINOPHILS % 6.3 % (0.0-6.0); HEMATOCRIT 41.2 % (38.2-49.6); HEMOGLOBIN 12.7 g/dL (14.0-18.0); LYMPHOCYTES # (AUTO) 1.1 (1.0-3.2); LYMPHOCYTES % 18.8 % (18.0-39.1); MEAN CORPUSCULAR HEMOGLOBIN 27.9 pg (28-32); MEAN CORPUSCULAR HGB CONC 30.8 g/dL (31-35); MEAN CORPUSCULAR VOLUME 90.5 fL (81-99); MONOCYTES # (AUTO) 0.5 (0.2-0.8); MONOCYTES % 8.9 % (4.4-11.3); NEUTROPHILS # (AUTO) 3.8 (2.1-6.9); PLATELET COUNT 202 x10e3/uL (140-360); RED BLOOD COUNT 4.55 x10e6/uL (4.3-5.7); RED CELL DISTRIBUTION WIDTH 14.3 % (11.7-14.4)
[2019-01-19 05:52] LABS: INR 1.81; PROTHROMBIN TIME 21.6 seconds (11.9-14.5)
[2019-01-19 06:03] LABS: ALANINE AMINOTRANSFERASE 11 IU/L (0-55); ALBUMIN 3.1 g/dL (3.5-5.0); ALBUMIN/GLOBULIN RATIO 0.7 (0.8-2.0); ALKALINE PHOSPHATASE 55 IU/L (40-150); ANION GAP 13.8 mmol/L (8-16); BLOOD UREA NITROGEN 17 mg/dL (7-26); BUN/CREATININE RATIO 20 (6-25); CALCIUM 10.3 mg/dL (8.4-10.2); CARBON DIOXIDE 34 mmol/L (22-29); CHLORIDE 98 mmol/L (98-107); CREATININE, SERUM 0.83 mg/dL (0.72-1.25); EST GLOMERULAR FILTRATION RATE > 60 ML/MIN (60-); GLUCOSE 99 mg/dL (74-118); POTASSIUM 3.8 mmol/L (3.5-5.1); SODIUM 142 mmol/L (136-145)
--- NOTE | 2019-01-19 07:13 | NUR ---
Bed side shift report given to the oncoming Rn.stable condition.
--- NOTE | 2019-01-19 07:15 | NUR ---
RECEIVED PATIENT RESTING IN BED, NO SIGNS OF DISTRESS. BED LOW, WHEELS LOCKED, SIDE RAILS X2. CALL LIGHT IN REACH WILL CONTINUE TO MONITOR PATIENT.
[2019-01-19] MEDS: PANTOPRAZOLE SOD 40 MG TABEC PO SCH ×2 (07:30→17:13)
[2019-01-19] MEDS: POTASSIUM CHLORIDE 20 MEQ TAB CR PO SCH (08:31)
[2019-01-19] MEDS: ASPIRIN 325 MG TAB PO SCH (08:31)
[2019-01-19] MEDS: ENOXAPARIN INJ 80 MG/0.8 ML SYR SC SCH ×2 (08:38→20:40)
[2019-01-19] MEDS: LOSARTAN POTASSIUM 100 MG TAB PO SCH (09:04)
--- NOTE | 2019-01-19 10:58 | NUR ---
PATIENT A/O X3, EVEN RESPIRATIONS. PATIENT BECOMES SOB ON EXERTION. LUNG SOUNDS DIMINISHED TO AUSCULTATION. RIGHT LOWER EXTREMITY 3+ PITTING EDEMA. REDNESS TO RIGHT FOOT WITH SMALL OPEN SPOT/SCAB. PATIENT STATES HE DROPPED SOMETHING ON FOOT. LEFT FA 20 GAUGE IV SL. IV INTACT/PATENT. TELEMETRY #23 PACED RHYTHM. PATIENT USES WALKER WITH AMBULATES, ALSO NEEDS ASSISTANCE WITH AMBULATION. BACK PAIN 5/10 PRN PAIN MEDICATION. PATIENT NPO FOR THORACENTESIS TODAY. VITAL SIGNS STABLE, CALL LIGHT IN REACH. WILL CONTINUE TO MONITOR PATIENT.
--- NOTE | 2019-01-19 11:26 | Diagnostic Imaging Report ---
CT LUMBAR SPINE W HISTORY: Back pain COMPARISON: CT of the abdomen/pelvis 01/03/2018 TECHNIQUE: Axial CT images of the lumbar spine were obtained without contrast. Coronal and sagittal reconstructions obtained from the axial data. One or more of the following dose reduction techniques were used: Automated exposure control, adjustment of the mA and/or kV according to patient size, and/or utilization of iterative reconstruction technique. DISCUSSION: Bone demineralization limits evaluation. There are 5 nonrib-bearing lumbar vertebral bodies. Lumbar lordosis is preserved. There is no significant scoliosis or subluxation. Mild compression fractures of the L3 inferior endplate and L4 superior endplate may be acute or subacute. There is no significant fracture retropulsion. There is no involvement of the pedicles or posterior elements. The posterior cortex at L4 is involved. There is questionable involvement of the posterior L3 cortex. Otherwise, no definite additional acute fracture or compression deformity is seen. No gross spinal canal mass is seen. The paravertebral and paraspinal soft tissues are unremarkable. Mild multilevel spondylotic changes are present. Mild bilateral sacroiliac degenerative changes are present as well. L1-L2: No gross canal or foraminal stenosis. L2-L3: No gross canal or foraminal stenosis. L3-L4: At least mild canal stenosis due to disc bulge and ligamentum flavum thickening. Mild bilateral foraminal stenoses due to disc bulge and facet arthrosis. L4-L5: At least mild canal stenosis due to disc bulge and ligamentum flavum thickening. Mild bilateral foraminal stenoses due to disc bulge and facet arthrosis. L5-S1: No gross canal or foraminal stenosis. Bilateral pleural effusions are partially visualized. Both adrenal glands are thickened. Aortoiliac calcified atherosclerosis is present. IMPRESSION: 1. Mild L3 inferior endplate and L4 superior endplate compression fractures may be acute or subacute (AO spine classification A1/A3). No significant retropulsion. 2. Mild multilevel spondylosis. 3. Mild degenerative canal and bilateral foraminal stenoses at L3-L4 and L4-L5. Signed by: Dr. Alfredo Sellers M.D. on 01/19/2019 11:23 AM
--- NOTE | 2019-01-19 13:20 | Progress Note ---
DATE: Pulmonary Critical Care Progress Note SUBJECTIVE: CT scan yesterday showed mild L3 inferior endplate and L4 superior endplate compression fractures. The patient is still awaiting ultrasound-guided thoracentesis. PHYSICAL EXAMINATION: VITAL SIGNS: The patient is afebrile. The blood pressure is 127/70, and saturation is 97% on 1 L. HEENT: Shows no facial swelling or erythema. CARDIAC: Reveals a regular rate and rhythm with a normal S1, S2. There are no murmurs or rubs heard. LUNGS: Auscultation of lungs shows decreased breath sounds at the bases. There is no wheezing. ABDOMEN: Soft, nontender. There is no rebound or guarding. EXTREMITIES: Examination of the extremities shows some swelling in the right leg. IMPRESSION: 1. Acute compression fractures at L3 and L4. 2. Efwby-lo-fofvgsm systolic congestive heart failure. 3. Deep vein thrombosis. 4. Cellulitis of the right lower extremity. 5. Atrial fibrillation. PLAN: 1. Ultrasound-guided thoracentesis today. 2. Await orthopedic consultation. Discuss the possibility of a high-flow vertebroplasty with Orthopedics. 3. Restart anticoagulation after thoracentesis. 4. Continue diuretics and current cardiac regimen. MD PAOLA Charles/[facility] /[id number]
--- NOTE | 2019-01-19 15:40 | NUR ---
NOTIFIED DR. Yessica SUGGS THAT PATIENT WENT INTO 11 BEATS OF V TACH AND CONVERTED BACK TO A PACED. NO NEW ORDERS AT THIS TIME. WILL CONTINUE TO MONITOR PATIENT.
[2019-01-19 16:43] LABS: BODY FLUID APPEARANCE TURBID; BODY FLUID COLOR RED; RBC,BODY FLUID 8762 cells/uL; WBC,BODY FLUID 50 cells/uL
[2019-01-19 16:45] LABS: BODY FLUID TYPE PLEURAL
--- NOTE | 2019-01-19 16:51 | Diagnostic Imaging Report ---
PROCEDURE: Ultrasound-guided diagnostic and therapeutic thoracentesis Procedural Personnel Attending physician(s): Adam Webb MD Fellow physician(s): None Resident physician(s): None Advanced practice provider(s): None Pre-procedure diagnosis: Left pleural effusion Post-procedure diagnosis: Same Indication: Pleural effusion with compromised respiration Additional clinical history: None Complications: No immediate complications. IMPRESSION: Ultrasound-guided thoracentesis with drainage of 1200 mL of tea colored serous fluid. Plan: Portable postprocedure radiograph. Resume care by clinical team. PROCEDURE SUMMARY: - Limited thoracic ultrasound - Ultrasound-guided thoracentesis - Additional procedure(s): None PROCEDURE DETAILS: Pre-procedure Consent: Informed consent for the procedure including risks, benefits and alternatives was obtained and time-out was performed prior to the procedure. Preparation: The site was prepared and draped using maximal sterile barrier technique including cutaneous antisepsis. Anesthesia/sedation Level of anesthesia/sedation: No sedation Anesthesia/sedation administered by: Not applicable Limited thoracic ultrasound Limited thoracic ultrasound was performed using a curved transducer. A safe window for thoracentesis was identified. Left hemithorax findings: Large pleural effusion Right hemithorax findings: Not investigated Thoracentesis Local anesthesia was administered. The pleural space was accessed and fluid return confirmed position. The fluid was drained. The catheter was removed, and a sterile bandage was applied. Catheter placed: 5F Yueh Post-drainage hemithorax findings: Small pleural effusion Additional Details Additional description of procedure: None Equipment details: None Specimens removed: Pleural fluid Estimated blood loss (mL): Less than 10 Standardized report: [id number] Attestation Signer name: Adam Webb MD I attest that I was present for the entire procedure. I reviewed the stored images and agree with the report as written. Signed by: Adam Webb MD on 01/19/2019 4:47 PM
[2019-01-19] MEDS ORDERED: WARFARIN SOD 3 MG TAB PO SCH (17:00)
--- NOTE | 2019-01-19 17:04 | Diagnostic Imaging Report ---
EXAMINATION: CHEST SINGLE (PORTABLE) INDICATION: Status post thoracentesis, evaluation for pneumothorax. COMPARISON: Chest radiograph of 01/18/2019 FINDINGS: LINES/TUBES:Left chest pacemaker unchanged. LUNGS:The right lung is well inflated. There is perihilar fullness and indistinctness of the pulmonary vasculature. Volume loss of the left lung with patchy opacity at the left lung base. PLEURA:Moderate left pleural effusion. No pneumothorax. MEDIASTINUM:Cardiomediastinal silhouette is stably enlarged. Atherosclerotic calcifications of the thoracic aorta. BONES/SOFT TISSUES:No acute osseous injury. ABDOMEN:No free air under the diaphragm. IMPRESSION: Status post left thoracentesis. No pneumothorax. Otherwise, no significant interval change. Signed by: Adam Webb MD on 01/19/2019 5:00 PM
[2019-01-19 17:28] LABS: LYMPHOCYTES,BODY FLUID 65 %; MONO/MACROPHG,BODY FLUID 21 %; NEUTROPHILS,BODY FLUID 11 %; OTHER CELLS,BODY FLUID 3 %
[2019-01-19] MEDS: HYDROCODONE/APAP 7.5MG-325MG 1 EA TAB PO PRN (18:44)
--- NOTE | 2019-01-19 18:52 | NUR ---
WALKING ROUNDS PERFORMED, RECEIVED PT LAYING SEMI FOWLERS IN BED, AAOX3, RR EVEN AND NON-LABORED, O2 BY NC AT 1L. NO S/SX OF DISTRESS NOTED. LEFT PT LAYING SEMI FOWLERS IN BED, BED IN LOW LOCKED POSITION, SIDE RAILS UPX2, CALL LIGHT AND PHONE WITHIN REACH.
[2019-01-19] MEDS: CEFTRIAXONE SOD 1 GM/NS 50 ML 50 ML IV SCH (20:40)
[2019-01-19] MEDS: SIMVASTATIN 20 MG TAB PO SCH (20:40)
[2019-01-19] MEDS: DOXAZOSIN MESYLATE 2 MG TAB PO SCH (20:40)
[2019-01-19] MEDS: AZITHROMYCIN 500MG/NS 250 ML 250 ML IV SCH (21:10)
[2019-01-20] VITALS (8 sets, daily range): BP systolic 99–131; BP diastolic 56–64
[2019-01-20] MEDS: HYDROCODONE/APAP 7.5MG-325MG 1 EA TAB PO PRN ×3 (04:40→21:22)
[2019-01-20] MEDS: FUROSEMIDE INJ 10 MG/ML 4 ML VIAL IV SCH ×2 (05:50→21:22)
--- NOTE | 2019-01-20 07:22 | NUR ---
RECEIVED PATIENT ASLEEP IN BED, NO SIGNS OF DISTRESS. BED LOW, WHEELS LOCKED, SIDE RAILS X2. CALL LIGHT IN REACH WILL CONTINUE TO MONITOR PATIENT.
[2019-01-20] MEDS ORDERED: ENOXAPARIN INJ 80 MG/0.8 ML SYR SC ONE (08:30)
[2019-01-20] MEDS: ENOXAPARIN INJ 80 MG/0.8 ML SYR SC SCH ×2 (08:32→21:22)
[2019-01-20] MEDS: LOSARTAN POTASSIUM 100 MG TAB PO SCH (08:56)
[2019-01-20] MEDS: POTASSIUM CHLORIDE 20 MEQ TAB CR PO SCH (08:56)
[2019-01-20] MEDS: PANTOPRAZOLE SOD 40 MG TABEC PO SCH ×2 (08:56→16:25)
--- NOTE | 2019-01-20 10:11 | Progress Note ---
DATE: SUBJECTIVE: The patient has left leg pain and swelling. He still has some pain in his foot. He still reports some back pain. He underwent ultrasound-guided thoracentesis and reports improvement in his dyspnea. PHYSICAL EXAMINATION: VITAL SIGNS: The patient is afebrile. The blood pressure is 127/61, saturation is 97%. HEENT: Shows no facial swelling or erythema. CARDIAC: Reveals regular rate and rhythm with normal S1, S2. There are no murmurs or rubs. LUNGS: Auscultation of lungs reveals clear breath sounds bilaterally. ABDOMEN: Soft, nontender. EXTREMITIES: There is no leg edema or calf tenderness. There is some deformity of the right foot. IMPRESSION: 1. Acute on chronic systolic congestive heart failure. 2. Acute compression fractures at L3 and L4. 3. Deep vein thrombosis. 4. Cellulitis of the right lower extremity. 5. Atrial fibrillation. PLAN: 1. Continue pain control and physical therapy. 2. Complete antibiotics. 3. Lovenox now and restart warfarin. 4. Podiatry to evaluate right foot. 5. LTAC evaluation. Favian Cantu MD [facility] /[id number]
--- NOTE | 2019-01-20 10:17 | NUR ---
PATIENT A/O X3, EVEN RESPIRATIONS. LUNG SOUNDS DIMINISHED TO AUSCULTATION. RIGHT FOOT 4+ PITTING EDEMA. RLE 2+ NON-PITTING EDEMA. REDNESS TO RIGHT FOOT WITH SMALL OPEN SPOT/SCAB. LEFT FA 20 GAUGE IV SL. IV INTACT/PATENT. TELEMETRY #23 V PACED WITH PVC's 69. PATIENT USES WALKER TO AMBULATE, ALSO NEEDS ASSISTANCE WITH AMBULATION. BACK PAIN 5/10 PRN PAIN MEDICATION. VITAL SIGNS STABLE, CALL LIGHT IN REACH. WILL CONTINUE TO MONITOR PATIENT.
--- NOTE | 2019-01-20 12:19 | NUR ---
LTAC EVAL ORDERED CHOICE LETTER SIGNED BY PT [place] WITH [facility] NOTIFIED OF CONSULT PT ACCEPTED NURSE CALLED FOR DC ORDERS NEW CONSULT FOR DR CHINCHILLA/[facility] FOR CELLULITIS/ABSCESS OF RIGHT FOOT TRANSFER ON HOLD UNTIL SEEN BY DR ALFARO
--- NOTE | 2019-01-20 14:58 | Diagnostic Imaging Report ---
EXAMINATION: FOOT RIGHT COMPLETE INDICATION: Foot swelling, pain COMPARISON: None FINDINGS: No acute fracture or dislocation. Extensive dorsal midfoot soft tissue swelling. Hammertoe deformities of the second through fourth toes. High plantar arch. Prominent plantar calcaneal spur and Achilles enthesopathy. Mild scattered arterial vascular calcifications. IMPRESSION: No acute osseous injury. Extensive dorsal midfoot soft tissue swelling. Hammertoe deformities of second through fourth toes. Signed by: Adam Webb MD on 01/20/2019 2:55 PM
[2019-01-20] MEDS ORDERED: WARFARIN SOD 2 MG TAB PO SCH (17:00)
--- NOTE | 2019-01-20 17:56 | NUR ---
DR. ALFARO WITH PODIATRY AT BEDSIDE TO SEE PATIENT. NEW ORDER FOR CT OF RIGHT FOOT D/T POSSIBLE ABSCESS. WANTS RESULT BEFORE SENDING PATIENT TO [facility].
[2019-01-20 18:25] LABS: INR 1.29; PROTHROMBIN TIME 16.7 seconds (11.9-14.5)
[2019-01-20] MEDS: CEFTRIAXONE SOD 1 GM/NS 50 ML 50 ML IV SCH (20:35)
[2019-01-20] MEDS: SIMVASTATIN 20 MG TAB PO SCH (21:22)
[2019-01-20] MEDS: DOXAZOSIN MESYLATE 2 MG TAB PO SCH (21:22)
--- NOTE | 2019-01-20 21:49 | Diagnostic Imaging Report ---
CT scan of the RIGHT FOOT, WITHOUT injected contrast. TECHNIQUE: Standard departmental protocols were used. Sagittal and coronal reformatted images were obtained. Dose modulation, iterative reconstruction, and/or weight based adjustment of the mA/kV was utilized to reduce the radiation dose to as low as reasonably achievable. DLP = 119.43 mGy-cm HISTORY: Foot abscess, right dorsal foot, reported kidney dysfunction COMPARISON: Right foot January 20, 2019. FINDINGS: The absence of intravenous contrast limits evaluation of the soft tissues. Bones: No acute displaced fracture. Small plantar calcaneal and dorsal calcaneal enthesophytes. Joints: Caudal configuration of the second through fifth digits. Mild scattered degenerative changes. Soft tissues: Diffuse soft tissue edema, most notably marked ill-defined edema centered at the dorsal aspect of the midfoot, internal areas of more confluent lobulated hyperdensities. Enhancement characteristics cannot be assessed. IMPRESSION: Marked dorsal foot soft tissue edema with the possibility of evolving phlegmon, early abscess, or hematoma in the appropriate setting. An ultrasound may be obtained to further evaluate for internal drainable fluid collection(s). Signed by: Dr. Primitivo Anderson D.O., M.M.M. on 01/20/2019 9:45 PM
[2019-01-21] VITALS (7 sets, daily range): BP systolic 108–123; BP diastolic 56–63
--- NOTE | 2019-01-21 01:54 | Consultation ---
DATE OF CONSULTATION: Podiatry Surgery Consultation Covering for Dr. Carlos Hansen. HISTORY OF PRESENT ILLNESS: The patient was seen at bedside. He is in good spirits. He says he is having pain to the right lower extremity. He dropped something on his foot about 5 weeks ago. He says he continued to walk on it and the pain began progressively worse. He states at this point, he could barely put his foot down. He is still having a lot of pain to it. PAST MEDICAL HISTORY: Coronary artery bypass grafting, history of pacemaker, ERCP, pancreatitis, atrial fibrillation, congestive heart failure, nephrolithiasis. ALLERGIES: LENORE INHIBITORS. SOCIAL HISTORY: He says he lives at home with Jessica, who is his partner of 26 years. He denies any alcohol or tobacco use. REVIEW OF SYSTEMS: Noncontributory for this, except for pain to the right lower extremity. PHYSICAL EXAMINATION: LOWER EXTREMITY: Pedal pulses are palpable, but diminished. Capillary filling time is delayed. He has large amount of pain to the dorsal aspect of the foot, that extends down to the lateral distal large area of ecchymosis. The dorsal aspect of the foot is boggy to the area, appears to be an area of a hematoma versus a possible abscess. Muscle mass is symmetrical. Protective threshold is diminished. IMAGING STUDIES: X-ray of the lower extremity, 3-views show extensive dorsal midfoot soft tissue swelling. No acute osseous injury. ASSESSMENT: 1. Peripheral vascular disease. 2. Hematoma versus abscess. 3. Cellulitis. PLAN: At this point, I am unable to obtain MRI secondary to pacemaker. I am going to order a CT to see if he has a drainable abscess or hematoma to the area. There is a small hematoma. I am going to recommend light compression to the area secondary to his heart disease. I am going to obtain arterial Dopplers before to see if he is a candidate for light compression. I am going to get physical therapy to do partial weightbearing to the area with the use of a postop shoe to immobilize the area. I will continue to follow. If the hematoma needs to be drained, I will schedule him for drainage of the hematoma pending the results from the CT. I have answered all questions. Thank you for letting me participate in the care of this patient. VALENTE Nath/[facility] /[id number]
[2019-01-21 05:41] LABS: BASOPHILS % 0.8 % (0.0-1.0); EOSINOPHILS # (AUTO) 0.4 (0.0-0.4); EOSINOPHILS % 7.6 % (0.0-6.0); HEMATOCRIT 39.5 % (38.2-49.6); HEMOGLOBIN 12.2 g/dL (14.0-18.0); LYMPHOCYTES # (AUTO) 0.9 (1.0-3.2); LYMPHOCYTES % 16.6 % (18.0-39.1); MEAN CORPUSCULAR HEMOGLOBIN 27.9 pg (28-32); MEAN CORPUSCULAR HGB CONC 30.9 g/dL (31-35); MEAN CORPUSCULAR VOLUME 90.4 fL (81-99); MONOCYTES # (AUTO) 0.6 (0.2-0.8); MONOCYTES % 11.2 % (4.4-11.3); NEUTROPHILS # (AUTO) 3.2 (2.1-6.9); NEUTROPHILS % 63.2 % (38.7-80.0); PLATELET COUNT 190 x10e3/uL (140-360); RED BLOOD COUNT 4.37 x10e6/uL (4.3-5.7)
[2019-01-21 05:50] LABS: INR 1.29; PROTHROMBIN TIME 16.7 seconds (11.9-14.5)
[2019-01-21 06:01] LABS: ALBUMIN 2.7 g/dL (3.5-5.0); ALBUMIN/GLOBULIN RATIO 0.8 (0.8-2.0); ALKALINE PHOSPHATASE 51 IU/L (40-150); ANION GAP 11.6 mmol/L (8-16); BLOOD UREA NITROGEN 21 mg/dL (7-26); BUN/CREATININE RATIO 28 (6-25); CALCIUM 9.5 mg/dL (8.4-10.2); CARBON DIOXIDE 35 mmol/L (22-29); CHLORIDE 96 mmol/L (98-107); CREATININE, SERUM 0.76 mg/dL (0.72-1.25); EST GLOMERULAR FILTRATION RATE > 60 ML/MIN (60-); GLUCOSE 102 mg/dL (74-118); POTASSIUM 3.6 mmol/L (3.5-5.1); SODIUM 139 mmol/L (136-145)
[2019-01-21 06:02] LABS: ALANINE AMINOTRANSFERASE < 6 IU/L (0-55)
--- NOTE | 2019-01-21 07:05 | NUR ---
PT ASLEEP RESP EVEN AND UNLABORED AT THIS TIME NO DISTRESS NOTED , PT EASILY AROUSED AND ABLE TO MAKE NEEDS KNOWN, CALL LIGHT N REACH.
--- NOTE | 2019-01-21 08:20 | NUR ---
PT WALK WITH PT, TOLERATED WELL. PT SITTING AT BEDSIDE. CALL LIGHT IN REACH.
[2019-01-21] MEDS: HYDROCODONE/APAP 7.5MG-325MG 1 EA TAB PO PRN (08:30)
[2019-01-21] MEDS ORDERED: ENOXAPARIN INJ 80 MG/0.8 ML SYR SC ONE (08:30)
[2019-01-21] MEDS: PANTOPRAZOLE SOD 40 MG TABEC PO SCH ×2 (08:36→16:58)
[2019-01-21] MEDS: VANCOMYCIN 1GM/NS 250 ML 250 ML IV SCH ×2 (08:36→21:29)
[2019-01-21] MEDS: FUROSEMIDE INJ 10 MG/ML 4 ML VIAL IV SCH ×2 (08:39→21:29)
[2019-01-21] MEDS: ENOXAPARIN INJ 80 MG/0.8 ML SYR SC SCH ×2 (08:40→21:00)
[2019-01-21] MEDS: LOSARTAN POTASSIUM 100 MG TAB PO SCH (08:40)
[2019-01-21] MEDS: POTASSIUM CHLORIDE 20 MEQ TAB CR PO SCH (08:40)
--- NOTE | 2019-01-21 11:16 | Progress Note ---
DATE: SUBJECTIVE: The patient was evaluated by Podiatry yesterday. A CT scan of the foot showed a possible hematoma. The patient still has some pain in that foot. PHYSICAL EXAMINATION: VITAL SIGNS: The patient is afebrile. The blood pressure is 116/58 and the saturation is 96% on 3 L. HEENT: Shows no facial swelling or erythema. CARDIAC: Reveals a regular rate and rhythm with normal S1 and S2. There are no murmurs or rubs heard. LUNGS: Auscultation of lungs shows clear breath sounds bilaterally. There is no wheezing. ABDOMEN: Soft, nontender. There is no rebound or guarding. EXTREMITIES: Does show some tenderness over the dorsum of the right foot. The swelling and erythema in the remainder of the leg are decreased. IMPRESSION: 1. Hematoma on dorsum of right foot. 2. Ntehy-le-xowpmua systolic congestive heart failure. 3. Acute compression fractures at L3 and L4. 4. Deep vein thrombosis. 5. Atrial fibrillation. PLAN: 1. Continue antibiotics. 2. Continue physical therapy. 3. Continue anticoagulation. 4. Discussed management with Podiatry. 5. Continue pain control for lumbar spine. MD PAOLA Charles/[facility] /[id number]
--- NOTE | 2019-01-21 11:23 | Diagnostic Imaging Report ---
Right lower extremity ultrasound. History: Right foot dorsal swelling after trauma. Discussion: Sonographic imaging of the right foot dorsum was performed in the region of the indicated palpable abnormality. Diffuse subcutaneous edema is present as well as a 2.6 x 1.0 cm subcutaneous fluid collection containing low level internal echoes. IMPRESSION: Subcutaneous edema with a small fluid collection which may represent hematoma, but abscess cannot be excluded. Signed by: Doug Hutchinson on 01/21/2019 11:20 AM
--- NOTE | 2019-01-21 12:20 | NUR ---
ULTRASOUND OF FOOT ORDERED ABSCESS VS HEMATOMA MAY REQUIRE AN I+D BEFORE TRANSFER TO [facility] AWARE DISCUSSED IN BARRIER ROUNDS DC PENDING US RESULTS AND PODIATRY PLAN
--- NOTE | 2019-01-21 12:22 | Progress Note ---
DATE: 01/21/2019 SUBJECTIVE: The patient was seen at bedside. CT result is back and it is showing marked dorsal soft tissue edema with an evolving frenum, early abscess, or hematoma. He is still pending the ultrasound and the arterial Doppler. Pending the ultrasound, I suspect he is probably going to have to be drained tomorrow secondary to the fact that he is very sensate, going to plan on taking him to the OR under anesthesia and draining the abscess. After that, probably we will begin light compression for healing. His white blood count continues to be under normal limit. ASSESSMENT: 1. Right dorsal abscess. 2. Edema. 3. Peripheral vascular disease. PLAN: Plan for surgery tomorrow. He will be n.p.o. tonight. I will take him to the OR and drain the abscess, take a culture, irrigate the abscess and we will begin light compression. I am pending the ultrasound and the arterial Dopplers. I will continue to follow. VALENTE Nath/[facility] /[id number]
[2019-01-21] MEDS ORDERED: WARFARIN SOD 2 MG TAB PO SCH (17:00)
--- NOTE | 2019-01-21 19:31 | NUR ---
report given to oncoming nurse. pt stable at this time.
--- NOTE | 2019-01-21 20:00 | NUR ---
Report received from AM nurse not to give lovenox night dose due to procedure. Patient will have drainage of right foot abscess tomorrow. Consent signed by patient.
[2019-01-21] MEDS: CEFTRIAXONE SOD 1 GM/NS 50 ML 50 ML IV SCH (20:11)
[2019-01-21] MEDS: DOXAZOSIN MESYLATE 2 MG TAB PO SCH (21:29)
[2019-01-21] MEDS: SIMVASTATIN 20 MG TAB PO SCH (21:29)
--- NOTE | 2019-01-21 21:29 | NUR ---
bp and pulse rechecked 116/59 mmhg 60 b/min.
[2019-01-22] VITALS (8 sets, daily range): BP systolic 108–126; BP diastolic 60–71
--- NOTE | 2019-01-22 04:00 | NUR ---
Cristopher bath done. Patient kept on NPO.
[2019-01-22 05:26] LABS: BASOPHILS % 0.4 % (0.0-1.0); EOSINOPHILS # (AUTO) 0.4 (0.0-0.4); EOSINOPHILS % 6.6 % (0.0-6.0); HEMOGLOBIN 12.4 g/dL (14.0-18.0); LYMPHOCYTES # (AUTO) 0.9 (1.0-3.2); LYMPHOCYTES % 17.6 % (18.0-39.1); MEAN CORPUSCULAR HEMOGLOBIN 28.2 pg (28-32); MEAN CORPUSCULAR HGB CONC 31.8 g/dL (31-35); MEAN CORPUSCULAR VOLUME 88.6 fL (81-99); MONOCYTES # (AUTO) 0.6 (0.2-0.8); MONOCYTES % 11.4 % (4.4-11.3); NEUTROPHILS # (AUTO) 3.4 (2.1-6.9); NEUTROPHILS % 63.4 % (38.7-80.0); PLATELET COUNT 207 x10e3/uL (140-360); RED CELL DISTRIBUTION WIDTH 14.2 % (11.7-14.4)
[2019-01-22 05:46] LABS: INR 1.18; PROTHROMBIN TIME 15.6 seconds (11.9-14.5)
[2019-01-22 05:50] LABS: ALANINE AMINOTRANSFERASE 6 IU/L (0-55); ALBUMIN 2.7 g/dL (3.5-5.0); ALBUMIN/GLOBULIN RATIO 0.8 (0.8-2.0); ALKALINE PHOSPHATASE 52 IU/L (40-150); ANION GAP 10.5 mmol/L (8-16); BLOOD UREA NITROGEN 20 mg/dL (7-26); BUN/CREATININE RATIO 26 (6-25); CALCIUM 9.4 mg/dL (8.4-10.2); CARBON DIOXIDE 34 mmol/L (22-29); CHLORIDE 97 mmol/L (98-107); CREATININE, SERUM 0.78 mg/dL (0.72-1.25); EST GLOMERULAR FILTRATION RATE > 60 ML/MIN (60-); GLUCOSE 96 mg/dL (74-118); POTASSIUM 3.5 mmol/L (3.5-5.1); SODIUM 138 mmol/L (136-145)
--- NOTE | 2019-01-22 06:20 | NUR ---
Patient is off the unit for procedure.
[2019-01-22] MEDS ORDERED: BACITRACIN 50,000 UNIT VIAL ONE (06:40)
[2019-01-22] MEDS ORDERED: BUPIVACAINE HCL 0.5% INJ 30 ML VIAL INJ ONE (06:40)
--- NOTE | 2019-01-22 07:00 | NUR ---
PT DOWN IN OR
[2019-01-22] MEDS ORDERED: FENTANYL CITRATE/PF 100MCG/2 ML INJ ONE ×2 (08:03→18:09)
[2019-01-22] MEDS: ENOXAPARIN INJ 80 MG/0.8 ML SYR SC SCH ×2 (09:00→20:24)
[2019-01-22] MEDS: PANTOPRAZOLE SOD 40 MG TABEC PO SCH ×2 (09:30→16:59)
[2019-01-22] MEDS: VANCOMYCIN 1GM/NS 250 ML 250 ML IV SCH ×2 (09:30→21:10)
[2019-01-22] MEDS: POTASSIUM CHLORIDE 20 MEQ TAB CR PO SCH (09:30)
[2019-01-22] MEDS: FUROSEMIDE INJ 10 MG/ML 4 ML VIAL IV SCH ×2 (09:30→20:24)
[2019-01-22] MEDS: LOSARTAN POTASSIUM 100 MG TAB PO SCH (09:30)
--- NOTE | 2019-01-22 09:30 | NUR ---
BACK TO RM AAOX3 PT IN STABLE CONDITION VS 112/67,62, 93%, 96.2, DSG OT RIGHT FOOT C/D/I, NO OTHER CO VOICED CALL LIGHT INR EACH WILL CONTINUE TO MONITOR
--- NOTE | 2019-01-22 09:54 | NUR ---
Patient off-floor in procedure today 02/01 to drain right foot abscess. Will hold physical therapy until new orders placed with new weight bearing restrictions. Previous restrictions were partial weight bearing on right foot. Addendum: 01/22/19 at 0989 by JOHN ROGERS PT Amended: Links added.
--- NOTE | 2019-01-22 09:56 | NUR ---
Patient off-floor in procedure today 01/22 to drain right foot abscess. Will hold physical therapy until new orders placed with new weight bearing restrictions. Previous restrictions were partial weight bearing on right foot. Addendum: 01/22/19 at 0957 by JOHN ROGERS PT Amended: Links added.
[2019-01-22] MEDS: HYDROCODONE/APAP 7.5MG-325MG 1 EA TAB PO PRN ×2 (10:55→18:10)
--- NOTE | 2019-01-22 12:26 | NUR ---
EDUCATED ABOUT IMM, SIGNED, FILED IN CHART, WITH COPY LEFT WITH FAMILY AT BEDSIDE.
--- NOTE | 2019-01-22 14:30 | NUR ---
Spoke with Dr. Cantu regarding nausea meds, and informed MD of six-beat run of V-tach, orders given for nausea and to continue monitoring patient.
[2019-01-22] MEDS ORDERED: ONDANSETRON HCL INJ 2MG/ML 2ML 2 MG/ML VIAL IV PRN (14:45)
[2019-01-22] MEDS: HYDROMORPHONE 1MG/1ML INJ IV PRN ×2 (14:50→21:07)
--- NOTE | 2019-01-22 15:08 | Operative Report ---
DATE OF PROCEDURE: 01/22/2019 SURGEON: Jessica Lynne DPM BELT CHANGER: None. PREOPERATIVE DIAGNOSIS: Soft tissue mass, possible abscess or hematoma, dorsal aspect of the right foot. POSTOPERATIVE DIAGNOSIS: Hematoma, right foot. PATHOLOGY: Removed hematoma, sent for Pathology. Cultures and sensitivities were taken. CONDITION: Stable. COMPLICATIONS: None. ANESTHESIA: General anesthetic with a local ankle block to the right foot. ESTIMATED BLOOD LOSS: Less than 10 mL. PROCEDURE IN DETAIL: Under mild sedation, the patient was brought to the operative room, placed on the operating table in supine position. Following IV sedation, anesthesia was obtained with a general anesthetic. At this point, the right foot scrubbed, prepped, and draped in the usual aseptic manner. It was then lowered to the table. Attention was then directed to the dorsal aspect of the right foot where the palpable soft tissue mass was isolated. At this point, palpating it measured about 4 cm to 5 cm in diameter. A linear incision was made overlying the area. The incision was deepened down to the level of the hematoma. At this point, there was noted to be a large hematoma formed at the dorsal aspect of the foot. The hematoma was in various stages of coagulation. All of it was removed, it was sent for Pathology. The area was irrigated with pressure supervisor bleach plant. Cultures and sensitivity of the area were taken. After full evacuation of the hematoma was confirmed clinically, the area was then closed closing the incision with 4-0 nylon. A compression bolster dressing was applied consisting of 4x4s, Kerlix, Webril, Vinicius bandage. The patient tolerated the procedure and anesthesia well without complications, was transported to recovery room with vital signs stable, vascular status unchanged to both feet. The patient will be readmitted back into the hospital. The dressing will stay intact for the next three days on Friday. The dressing can begin to be changed with Xeroform and either a Coban Lite type of compression or Webril and Coban. PT is to train him on partial weightbearing with the use of a postop shoe and he is to limit his ambulation. I will continue to follow. The size of the hematoma was about 20 mL. Jessica Lynne DPM ER/ADORE /[id number]
[2019-01-22] MEDS: WARFARIN SOD 2 MG TAB PO SCH (16:59)
--- NOTE | 2019-01-22 17:44 | NUR ---
Nutrition Follow-up Note RD Recommendation for Physician: Continue diet as ordered Plan of Care: RD following, monitoring for tolerance and adequacy Nutrition reason for involvement: Follow up Primary Diagnose(s): dyspnea PMH: 1. Atrial fibrillation. 2. Systolic congestive heart failure. 3. COPD. 4. Nephrolithiasis. Ht: 72in Wt:220lb; 205.44lb BMI:29.8 kg/m2 IBW:178lb +/-10% RD Assessment: (01/22) Visited pt in the room. Pt reported fair appetite. PCT recorded 75-100% meal intake. No GI complains reported. Current diet is appropriate and adequate. Pt has no nutrition related question at this time. (01/16/2019) Chart reviewed. Labs and meds reviewed. Initial encounter with patient. 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 Pt states that he has no difficulty chewing or swallowing nor has any N,V,D. Pt is able to feed himself. Pt has no known food allergies. Current Diet: Cardiac diet Malnutrition Evaluation (01/16/2019) The patient does not meet criteria for a specified degree of malnutrition at this time. Will re-evaluate at follow-up as appropriate. Diet Education Needs Assessment: Diet education not indicated. Nutrition Care Level: Low Signed: Elizabeth Ovalle, MS, RD, LD
--- NOTE | 2019-01-22 18:19 | Progress Note ---
DATE: SUBJECTIVE: The patient had an incision and drainage of the dorsum of the right foot yesterday. He complains of some pain. PHYSICAL EXAMINATION: VITAL SIGNS: The blood pressure is 108/68. Saturation is 98% on 2 L. HEENT: Shows no facial swelling or erythema. CARDIAC: Reveals a regular rate and rhythm with normal S1, S2. LUNGS: Auscultation of lungs reveals clear breath sounds bilaterally. There is no wheezing. ABDOMEN: Soft, nontender. There is no rebound or guarding. EXTREMITIES: Show no leg edema or calf tenderness. IMPRESSION: 1. Acute compression fractures at L3 and L4. 2. Acute on chronic systolic congestive heart failure. 3. Cellulitis of the right lower extremity with possible abscess on the dorsum of the foot. 4. Deep vein thrombosis. 5. Atrial fibrillation. PLAN: 1. Continue anticoagulation. 2. Continue pain control. 3. Physical therapy. 4. Probable transfer to [facility] tomorrow. MD PAOLA Charles/ADORE /[id number]
[2019-01-22] MEDS ORDERED: LIDOCAINE HCL 2% LOCAL INJ 5 ML SDV VIAL INJ ONE (18:27)
[2019-01-22] MEDS ORDERED: SEVOFLURANE INHAL SOLN 250 ML PEN BTL ONE (18:27)
[2019-01-22] MEDS ORDERED: ONDANSETRON HCL INJ 2MG/ML 2ML 2 MG/ML VIAL ONE (18:27)
[2019-01-22] MEDS ORDERED: ESMOLOL HCL 100MG/10ML 10 MG/ML VIAL ONE (18:27)
[2019-01-22] MEDS ORDERED: PROPOFOL IV EMULSION 10 MG/ML 20 ML VIAL ONE (18:27)
--- NOTE | 2019-01-22 18:56 | NUR ---
BEDSIDE SHIFT REPORT PERFORMED, RECEIVED PT LAYING SEMI FOWLERS IN BED, AAOX3, RR EVEN AND NON-LABORED, O2 BY NC AT 2L. (R) FOOT ELEVATED ON PILLOWS AND WRAPPED IN LENORE WRAP. PT REPORTS PAIN TO (R) FOOT. LEFT PT LAYING SEMI FOWLERS IN BED, BED IN LOW LOCKED POSITION, SIDE RAILS UPX2, CALL LIGHT AND PHONE WITHIN REACH.
--- NOTE | 2019-01-22 19:02 | NUR ---
bedside shift report given to oncoming overnight caregiver RN. pt voices no complaints at this time. call light within reach.
[2019-01-22] MEDS: SIMVASTATIN 20 MG TAB PO SCH (20:24)
[2019-01-22] MEDS: DOXAZOSIN MESYLATE 2 MG TAB PO SCH (20:24)
[2019-01-22] MEDS: CEFTRIAXONE SOD 1 GM/NS 50 ML 50 ML IV SCH (20:24)
[2019-01-23] VITALS: BP 122/64
[2019-01-23] MEDS: HYDROMORPHONE 1MG/1ML INJ IV PRN ×3 (03:18→16:09)
[2019-01-23 04:00] VITALS: BP 120/67
[2019-01-23 05:45] LABS: BASOPHILS % 0.6 % (0.0-1.0); EOSINOPHILS # (AUTO) 0.4 (0.0-0.4); EOSINOPHILS % 8.2 % (0.0-6.0); HEMATOCRIT 37.3 % (38.2-49.6); HEMOGLOBIN 11.9 g/dL (14.0-18.0); LYMPHOCYTES # (AUTO) 0.9 (1.0-3.2); LYMPHOCYTES % 17.8 % (18.0-39.1); MEAN CORPUSCULAR HEMOGLOBIN 28.5 pg (28-32); MEAN CORPUSCULAR HGB CONC 31.9 g/dL (31-35); MEAN CORPUSCULAR VOLUME 89.4 fL (81-99); MONOCYTES # (AUTO) 0.6 (0.2-0.8); NEUTROPHILS # (AUTO) 3.1 (2.1-6.9); NEUTROPHILS % 61.2 % (38.7-80.0); PLATELET COUNT 186 x10e3/uL (140-360); RED BLOOD COUNT 4.17 x10e6/uL (4.3-5.7); RED CELL DISTRIBUTION WIDTH 14.1 % (11.7-14.4)
[2019-01-23 05:55] LABS: INR 1.31; PROTHROMBIN TIME 16.9 seconds (11.9-14.5)
[2019-01-23 06:06] LABS: ALANINE AMINOTRANSFERASE 9 IU/L (0-55); ALBUMIN 2.7 g/dL (3.5-5.0); ALBUMIN/GLOBULIN RATIO 0.8 (0.8-2.0); ALKALINE PHOSPHATASE 55 IU/L (40-150); BLOOD UREA NITROGEN 16 mg/dL (7-26); BUN/CREATININE RATIO 22 (6-25); CALCIUM 9.4 mg/dL (8.4-10.2); CARBON DIOXIDE 36 mmol/L (22-29); CHLORIDE 100 mmol/L (98-107); CREATININE, SERUM 0.73 mg/dL (0.72-1.25); EST GLOMERULAR FILTRATION RATE > 60 ML/MIN (60-); GLUCOSE 97 mg/dL (74-118); SODIUM 140 mmol/L (136-145)
--- NOTE | 2019-01-23 07:00 | NUR ---
BEDSIDE SHIFT REPORT RECEIVED, DENIES PAIN AT THIS TIME, UPDATED ON POC VOICED UNDERSTANDING, DSG TO RIGHT FOOT C/D/I, NO OTHER CO VOICED CALL LIGHT IN REACH WILL CONTINUE TO MONITOR
[2019-01-23 07:53] VITALS: BP 149/60
[2019-01-23] MEDS: PANTOPRAZOLE SOD 40 MG TABEC PO SCH ×2 (08:50→16:09)
[2019-01-23] MEDS: FUROSEMIDE INJ 10 MG/ML 4 ML VIAL IV SCH (09:20)
[2019-01-23] MEDS: VANCOMYCIN 1GM/NS 250 ML 250 ML IV SCH (09:20)
[2019-01-23] MEDS: POTASSIUM CHLORIDE 20 MEQ TAB CR PO SCH (09:20)
[2019-01-23] MEDS: LOSARTAN POTASSIUM 100 MG TAB PO SCH (09:20)
[2019-01-23] MEDS: ENOXAPARIN INJ 80 MG/0.8 ML SYR SC SCH (09:20)
[2019-01-23 10:08] VITALS: BP 149/60
--- NOTE | 2019-01-23 11:07 | NUR ---
MOT REC'D FOR [facility] AND PLACED ON MOT ON FRONT OF PACKET [facility] ROOM [address] DR Lisbeth SUGGS ATTENDING PER DEE REED AT [facility] NURSE AKI AWARE AND WILL GET ORDER FOR DC
[2019-01-23] MEDS ORDERED: HYDROCODONE/APAP 7.5MG-325MG 1 EA TAB PO PRN (11:30)
[2019-01-23 11:40] VITALS: BP 114/57
--- NOTE | 2019-01-23 15:04 | Discharge Summary ---
DISCHARGE DIAGNOSES: 1. Tckeb-hz-njlsghh systolic congestive heart failure. 2. Acute compression fractures at L3 and L4. 3. Cellulitis of the right lower extremity with abscess and sepsis, present on admission. 4. Deep vein thrombosis. 5. Atrial fibrillation. CONSULTING PHYSICIANS: 1. Dr. Vasquez of orthopedics. 2. Dr. Fernando Cantu of Cardiology. 3. Dr. Jessica Lynne. PROCEDURES: 1. Ultrasound-guided thoracentesis done by Radiology. 2. Incision and drainage of the dorsum of the right foot. RADIOGRAPHIC DATA: 1. CT scan of the chest showed cardiomegaly and pulmonary vascular congestion. There are moderate bilateral pleural effusions, left greater than right. The patient also had some left upper lobe pleural-based consolidations, suggestive of discoid atelectasis. 2. Abdominal ultrasound showed some hepatic steatosis and a prior cholecystectomy. 3. CT scan of the lumbar spine showed mild L3 inferior endplate and L4 superior endplate compression fractures. There are also mild degenerative changes. 4. CT scan of the extremity of the right leg showed swelling and soft tissue edema on the dorsum of the foot with an evolving abscess or hematoma. HISTORY OF PRESENT ILLNESS: The patient is an 83-year-old man. He has a history of prior cardiac disease including a coronary artery bypass grafting. He has atrial fibrillation and systolic congestive heart failure. He previously required admission at [facility] for cholelithiasis and acute gallstone pancreatitis. He had a left pleural effusion at that time that required a thoracentesis. The patient came in complaining of increasing right leg pain. He noted swelling and edema. He also complained of worsening dyspnea. HOSPITAL COURSE: The patient was admitted. He was started on IV antibiotics. He also received Lasix and was evaluated by Cardiology for his congestive heart failure. He had a left-sided thoracentesis. His breathing improved with this. The erythema in his leg improved, but he continued to have swelling on the dorsum of his foot. A subsequent CT showed a possible abscess. Podiatry was consulted and they did an incision and drainage. Venous duplex showed a DVT in the right lower extremity. The patient was given Lovenox and was continued on his warfarin. DISPOSITION: The patient will be transferred to [place]. MD PAOLA Charles/LETYL /[id number]
[2019-01-23] MEDS: WARFARIN SOD 2 MG TAB PO SCH (16:09)
[2019-01-23 16:10] VITALS: BP 125/68
--- NOTE | 2019-01-23 16:36 | NUR ---
GAVE REPORT TO KAYLIN EASTON AT [facility].
== END 2019-01-23 17:21 | DRG 871 ==
LOC: ER 12:04 → ERHOLD 13:48 → MED/SURG 16:30 → OBSVTOIN 01-16 08:48
PROVIDERS: ADMIT Internal Medicine Critical Care Medicine; ATTEND Internal Medicine Critical Care Medicine
PROC: 0W9B3ZZ Drainage of Left Pleural Cavity, Percutaneous Approach (ICD-10-PCS; 2019-01-19)
PROC: 0JCQ0ZZ Extirpation of Matter from Right Foot Subcutaneous Tissue and Fascia, Open Approach (ICD-10-PCS; principal; 2019-01-22 07:00)
DX: A41.9 Sepsis, unspecified organism (principal); K85.10 Biliary acute pancreatitis without necrosis or infection; I50.23 Acute on chronic systolic (congestive) heart failure; I82.411 Acute embolism and thrombosis of right femoral vein; L03.115 Cellulitis of right lower limb; M48.56XA Collapsed vertebra, not elsewhere classified, lumbar region, initial encounter for fracture; J90 Pleural effusion, not elsewhere classified; I11.0 Hypertensive heart disease with heart failure; S90.31XA Contusion of right foot, initial encounter; I73.9 Peripheral vascular disease, unspecified; J44.9 Chronic obstructive pulmonary disease, unspecified; I48.2 Chronic atrial fibrillation; I25.10 Atherosclerotic heart disease of native coronary artery without angina pectoris; Z95.1 Presence of aortocoronary bypass graft; Z95.810 Presence of automatic (implantable) cardiac defibrillator
CPT/HCPCS: 32555; 36415; 71045; 71046; 71260; 72132; 74470; 76700; 76882; 80053; 80202; 82150; 82550; 82553; 83615; 83690; 83735; 83880; 84157; 84484; 85025; 85610; 87070; 87071; 87075; 87102; 87205; 87206; 88112; 88305; 89051; 93005; 93306; 93925; 93970; 97139; 99284; G0378; J0456; J0696; J1170; J1650; J1940; J2001; J2405; J3010; J3370; J7050; Q9967

== ENCOUNTER 2019-04-23 14:34 | Inpatient (IN) | payer MEDICARE ==
[~2019-04-23] VITALS: Ht 182.9 cm; Wt 101.2 kg
--- NOTE | 2019-04-23 15:12 | NUR ---
Received patient from Dr. Cantu's office, a/ox3, BLE +4 and shortness of breath. Admitted for systolic congestive heart failure and bilateral pleural effusions. Settled in the room, O2 at 4L NC, call light within reach, will monitor.
[2019-04-23 15:23] VITALS: BP 143/83
[2019-04-23 15:28] LABS: BASOPHILS % 0.2 % (0.0-1.0); HEMATOCRIT 39.5 % (38.2-49.6); HEMOGLOBIN 12.5 g/dL (14.0-18.0); LYMPHOCYTES # (AUTO) 0.2 (1.0-3.2); LYMPHOCYTES % 3.6 % (18.0-39.1); MEAN CORPUSCULAR HEMOGLOBIN 28.2 pg (28-32); MEAN CORPUSCULAR HGB CONC 31.6 g/dL (31-35); MEAN CORPUSCULAR VOLUME 89.2 fL (81-99); MONOCYTES # (AUTO) 0.5 (0.2-0.8); MONOCYTES % 7.7 % (4.4-11.3); NEUTROPHILS # (AUTO) 5.8 (2.1-6.9); PLATELET COUNT 172 x10e3/uL (140-360); RED BLOOD COUNT 4.43 x10e6/uL (4.3-5.7); RED CELL DISTRIBUTION WIDTH 15.8 % (11.7-14.4)
[2019-04-23 15:35] VITALS: BP 143/83
--- NOTE | 2019-04-23 15:40 | NUR ---
Patient signed consent for bedside thoracentesis by Dr. Cantu.
[2019-04-23 15:45] LABS: ALANINE AMINOTRANSFERASE 12 IU/L (0-55); ALBUMIN 3.2 g/dL (3.5-5.0); ALBUMIN/GLOBULIN RATIO 0.8 (0.8-2.0); ALKALINE PHOSPHATASE 54 IU/L (40-150); ANION GAP 14.6 mmol/L (8-16); BLOOD UREA NITROGEN 17 mg/dL (7-26); BUN/CREATININE RATIO 26 (6-25); CALCIUM 9.8 mg/dL (8.4-10.2); CARBON DIOXIDE 28 mmol/L (22-29); CHLORIDE 104 mmol/L (98-107); CREATININE, SERUM 0.66 mg/dL (0.72-1.25); EST GLOMERULAR FILTRATION RATE > 60 ML/MIN (60-); GLUCOSE 137 mg/dL (74-118); POTASSIUM 3.6 mmol/L (3.5-5.1); SODIUM 143 mmol/L (136-145)
--- NOTE | 2019-04-23 15:47 | NUR ---
Procedure started at this time
[2019-04-23 16:14] LABS: BODY FLUID APPEARANCE TURBID; BODY FLUID COLOR RED; BODY FLUID TYPE PLEURAL
[2019-04-23] MEDS ORDERED: ZOLPIDEM TARTRATE 5 MG TAB PO PRN (16:15)
--- NOTE | 2019-04-23 16:33 | Diagnostic Imaging Report ---
EXAMINATION: CHEST 2 VIEWS INDICATION: Post procedure COMPARISON: None FINDINGS: LINES/TUBES:Single lead left chest pacer. LUNGS:The lungs are moderately inflated. Biapical pleural parenchymal thickening/scarring There is perihilar fullness and indistinctness of the pulmonary vasculature. Bibasilar patchy opacities silhouette both hemidiaphragms. PLEURA:Moderate bilateral pleural effusion. No pneumothorax. MEDIASTINUM:Cardiomediastinal silhouette is stably enlarged. Atherosclerotic calcifications of the thoracic aorta. Postoperative findings of prior CABG. BONES/SOFT TISSUES:No acute osseous injury. Sternotomy wires intact. ABDOMEN:No free air under the diaphragm. IMPRESSION: Megaly, Brittani edema, and bilateral moderate pleural effusion. No pneumothorax status post thoracentesis. Bibasilar patchy opacities left greater than right, more likely subsegmental atelectasis than superimposed aspiration or pneumonia. Signed by: Adam Webb MD on 04/23/2019 4:30 PM
[2019-04-23 16:45] LABS: RBC,BODY FLUID 40425 cells/uL; WBC,BODY FLUID 550 cells/uL
--- NOTE | 2019-04-23 16:58 | History and Physical ---
CHIEF COMPLAINT: Dyspnea and leg swelling. HISTORY OF PRESENT ILLNESS: The patient is an 83-year-old man. He has a history of prior coronary artery bypass grafting as well as atrial fibrillation and systolic cardiomyopathy. He required hospitalization at [facility] in January for worsening heart failure, bilateral leg edema, and pleural effusions. He had complication of cellulitis of his right leg as well as an abscess on the dorsum of the right foot. He also had subacute compression fractures of the lumbar spine discovered at that time in L3 and L4. He was treated with diuretics and evaluated by Cardiology. He received IV antibiotics. He was subsequently discharged to [facility]. Since being discharged, he has continued to have bilateral leg swelling. He is receiving wound care at home. Today, the home health care nurse noted worsening dyspnea. He felt some fullness and discomfort on the left side of his chest, similar to how he felt before. PAST SURGICAL HISTORY: 1. Status post coronary artery bypass grafting. 2. Status post pacemaker and AICD placement. 3. Status post ERCP with stone extraction for gallstone pancreatitis. 4. Status post incision and drainage of the dorsum of the right foot. PAST MEDICAL HISTORY: 1. Xnoii-[id number]-[id number] systolic congestive heart failure. 2. Atrial fibrillation. 3. COPD. 4. Leg edema. 5. Nephrolithiasis. ALLERGIES: THE PATIENT IS ALLERGIC TO LENORE INHIBITORS. SOCIAL HISTORY: The patient is not a smoker or drinker. FAMILY HISTORY: Noncontributory. REVIEW OF SYSTEMS: No fever. There is no headache. He has no neck pain. He does not complain of chest pain. He does note dyspnea. He has mild cough. He also notes some lower back pain. He has bilateral leg swelling as well as poorly healing wound on the dorsum of his right foot. PHYSICAL EXAMINATION: VITAL SIGNS: The patient is afebrile. Blood pressure is 143/83, saturation is 90% on 4 L, pulse is 86. HEENT: No facial swelling or erythema. CARDIAC: Regular rate and rhythm with normal S1, S2. LUNGS: Auscultation of lungs reveals decreased breath sounds on the left side. ABDOMEN: Soft, nontender. There is no rebound or guarding. EXTREMITIES: Shows 2 to 3+ leg edema, more on the right than the left. There is a wound that is bandaged on the dorsum of the right foot. NEUROLOGICAL: No focal abnormalities. LABORATORY DATA: CBC is within normal limits. Platelet count is normal. BUN to creatinine ratio is normal. Other electrolytes within normal limits. IMPRESSION: 1. Acute on chronic systolic congestive heart failure. 2. Large left pleural effusion. 3. Bilateral leg edema. 4. Poorly healing wound on the dorsum of the right foot. 5. Hypertension. PLAN: 1. Ultrasound-guided thoracentesis with pleural fluid analysis. 2. Continue current cardiac regimen. 3. Echocardiogram and Cardiology consultation. 4. Wound Care. Favian Cantu MD [facility]/MODL /[id number]
[2019-04-23] MEDS ORDERED: FUROSEMIDE 20 MG TAB PO SCH (17:00)
[2019-04-23 18:34] LABS: LYMPHOCYTES,BODY FLUID 72 %; MONO/MACROPHG,BODY FLUID 13 %; NEUTROPHILS,BODY FLUID 11 %; OTHER CELLS,BODY FLUID 4 %
[2019-04-23 19:48] VITALS: BP 122/75
[2019-04-23] MEDS: SIMVASTATIN 20 MG TAB PO SCH (20:15)
[2019-04-23] MEDS: FUROSEMIDE INJ 10 MG/ML 4 ML VIAL IV SCH (20:15)
[2019-04-23 20:29] VITALS: BP 122/75
--- NOTE | 2019-04-23 22:05 | Operative Report ---
DATE OF PROCEDURE: SURGEON: Favian Cantu MD PROCEDURE PERFORMED: Ultrasound-guided thoracentesis. PREOPERATIVE DIAGNOSIS: Left pleural effusion. POSTOPERATIVE DIAGNOSIS: Left pleural effusion. CONSENT: Consent was obtained from the patient. ANESTHESIA: 1% lidocaine for local anesthesia. DESCRIPTION OF PROCEDURE: The patient was placed in upright position. Ultrasound was used to visualize the pleural space. There was a large left pleural effusion and a small right pleural effusion visible. There were no loculations. There were no visible masses. The left posterior hemithorax was prepped sterilely. 1% lidocaine was used to anesthetize the area over the posterior 8th rib. A 21-gauge needle was used to define the pleural space. A small incision was then made over the posterior 8th intercostal space. A 16-gauge needle was advanced into the pleural space and the catheter was advanced over the needle. 1800 mL of serosanguineous fluid was removed from the pleural space. COMPLICATIONS: None. ESTIMATED BLOOD LOSS: None. Favian Cantu MD [facility]/MODL /[id number]
[2019-04-24] VITALS (8 sets, daily range): BP systolic 118–139; BP diastolic 58–83
--- NOTE | 2019-04-24 00:37 | NUR ---
SPOKE TO DR. NELIDA SUGGS REGARDING PATIENT C/O PAIN, PRESSURE TO LOWER ABDOMEN AND UNABLE TO URINATE. WITH 318ML OF URINE NOTED ON BLADDER SCAN. MD ORDERED TO INSERT CHRISTIANSON CATH. Addendum: 04/24/19 at 0215 by Vladimir Mckeon RN SPOKE TO DR. NIVIA SUGGS
--- NOTE | 2019-04-24 01:25 | NUR ---
600ML OF CLEAR PINK URINE NOTED TO CHRISTIANSON BAG UPON INSERTION.
[2019-04-24 05:27] LABS: BASOPHILS % 0.2 % (0.0-1.0); EOSINOPHILS % 0.2 % (0.0-6.0); HEMATOCRIT 40.7 % (38.2-49.6); HEMOGLOBIN 12.1 g/dL (14.0-18.0); LYMPHOCYTES # (AUTO) 0.4 (1.0-3.2); LYMPHOCYTES % 6.6 % (18.0-39.1); MEAN CORPUSCULAR HEMOGLOBIN 27.3 pg (28-32); MEAN CORPUSCULAR HGB CONC 29.7 g/dL (31-35); MEAN CORPUSCULAR VOLUME 91.7 fL (81-99); MONOCYTES # (AUTO) 0.7 (0.2-0.8); MONOCYTES % 10.6 % (4.4-11.3); NEUTROPHILS # (AUTO) 5.2 (2.1-6.9); NEUTROPHILS % 82.1 % (38.7-80.0); PLATELET COUNT 174 x10e3/uL (140-360); RED BLOOD COUNT 4.44 x10e6/uL (4.3-5.7); RED CELL DISTRIBUTION WIDTH 15.8 % (11.7-14.4)
[2019-04-24 05:59] LABS: ALANINE AMINOTRANSFERASE 10 IU/L (0-55); ALBUMIN/GLOBULIN RATIO 0.8 (0.8-2.0); ALKALINE PHOSPHATASE 52 IU/L (40-150); ANION GAP 12.4 mmol/L (8-16); BLOOD UREA NITROGEN 18 mg/dL (7-26); BUN/CREATININE RATIO 23 (6-25); CALCIUM 10.2 mg/dL (8.4-10.2); CARBON DIOXIDE 35 mmol/L (22-29); CHLORIDE 102 mmol/L (98-107); CREATININE, SERUM 0.77 mg/dL (0.72-1.25); EST GLOMERULAR FILTRATION RATE > 60 ML/MIN (60-); GLUCOSE 111 mg/dL (74-118); POTASSIUM 3.4 mmol/L (3.5-5.1); SODIUM 146 mmol/L (136-145)
--- NOTE | 2019-04-24 07:00 | NUR ---
RECEIVED PATIENT RESTING IN BED NO SIGNS OF DISTRESS. BED LOW, WHEELS LOCKED, SIDE RAILS X2, CALL LIGHT IN REACH WILL CONTINUE TO MONITOR PATIENT.
[2019-04-24] MEDS: FUROSEMIDE INJ 10 MG/ML 4 ML VIAL IV SCH ×2 (08:01→20:10)
[2019-04-24] MEDS: LOSARTAN POTASSIUM 100 MG TAB PO SCH (08:01)
[2019-04-24] MEDS ORDERED: LOSARTAN POTASSIUM 25 MG TAB PO SCH (09:00)
[2019-04-24] MEDS ORDERED: AMLODIPINE BESYLATE 10 MG TAB PO SCH (09:00)
[2019-04-24 09:03] LABS: ANISOCYTOSIS SLIGHT; LYMPHOCYTES % (MANUAL) 8 % (19-48); MONOCYTES % (MANUAL) 6 % (3.4-9.0); NEUTROPHILS % (MANUAL) 86 % (40-74); PLATELET ESTIMATE ADEQUATE; PLATELET MORPHOLOGY COMMENT NORMAL; RBC MORPHOLOGY COMMENT NORMAL
[2019-04-24 09:04] LABS: ELLIPTOCYTE, RBC SLIGHT
--- NOTE | 2019-04-24 09:50 | NUR ---
PATIENT LEFT FOR CT AT THIS TIME.
--- NOTE | 2019-04-24 10:14 | NUR ---
PATIENT BACK FROM CT AT THIS TIME. CALL LIGHT IN REACH, WILL CONTINUE TO MONITOR PATIENT.
[2019-04-24] MEDS: POTASSIUM CHLORIDE 20 MEQ TAB CR PO SCH (10:22)
--- NOTE | 2019-04-24 11:00 | NUR ---
PATIENT RESTING IN BED NO S/S OF DISTRESS. WHEEZING PRESENT THROUGHOUT LUNG JOSEPH. 4+ PITTING EDEMA TO BLE. CHRISTIANSON IN PLACE WITH STRAW COLORED URINE. PATIENT ON HIGH FLOW NC AT 6L SATS 99%. NO PAIN AT THIS TIME. VS STABLE. CALL LIGHT IN REACH WILL CONTINUE TO MONITOR PATIENT.
[2019-04-24 11:10] LABS: INR 1.15; PROTHROMBIN TIME 15.3 seconds (11.9-14.5)
--- NOTE | 2019-04-24 12:26 | NUR ---
Nutrition Screen Note RD Recommendation for Physician:Continue diet as ordered Plan of Care: RD following, monitoring for tolerance and adequacy Nutrition reason for involvement: Nutrition Risk Trigger - Primary diagnosis of CHF Primary Diagnose(s): Systolic CHF PMH: Atrial fibrillation, CHF, COPD, CABG, HTN, Edema bilateral lower extremities Ht:72 in Wt:229.13lb BMI:31.1 kg/m2 IBW:178lb +/-10% RD Assessment: (04/24/2019) Chart reviewed. Labs and meds reviewed. Initial encounter with patient. Diet Hx: Pt has no known food allergies. Pt states that he tries to follow a low sodium diet at home. Fair Po intake/appetite. Pt denies any difficulty chewing or swallowing or any N,V,D or any significant wt changes. Current Diet: Clear liquid diet Malnutrition Evaluation (04/24/2019) The patient does not meet criteria for a specified degree of malnutrition at this time. Will re-evaluate at follow-up as appropriate. Diet Education Needs Assessment: Diet education indicated, but Pt refused. Nutrition Care Level: Low Signed: Foreign Vogt RD, LD, [facility] Addendum: 04/24/19 at 1304 by Foreign Vogt DIET Diet: Cardiac diet
[2019-04-24] MEDS ORDERED: IOPAMIDOL 370 MG/ML 200 ML INFUS..BTL INJ ONE (12:36)
[2019-04-24] MEDS ORDERED: SODIUM CHLORIDE 0.9% 50ML 50 ML ONE (12:36)
--- NOTE | 2019-04-24 12:38 | Diagnostic Imaging Report ---
EXAM: CT Chest WITH contrast 04/24/2019 8:40 AM INDICATION: Pain. CHF. Pleural effusions. COMPARISON: 01/16/2019. TECHNIQUE: Chest was scanned utilizing a multidetector helical scanner from the lung apex through the level of the adrenal glands without administration of IV contrast. Coronal and sagittal reformations were obtained. Routine protocol was performed. IV CONTRAST: 100 cc of Isovue-300. RADIATION DOSE: Total DLP: 561.19 mGy*cm Estimated effective dose: (DLP x 0.014 x size factor) mSv COMPLICATIONS: None FINDINGS: LINES/ TUBES: None. LUNGS AND AIRWAYS: Bilateral lower compressive atelectasis. Lingular segmental compressive atelectasis. Patchy groundglass density in the inferior left upper lobe may represent atelectasis versus pneumonia in the proper clinical setting. Calcified granuloma in the superior segment of the right lower lobe. Pulmonary venous congestion. PLEURA: Moderate bilateral pleural effusions. HEART AND MEDIASTINUM: The thyroid gland is normal. No mediastinal, hilar or axillary lymphadenopathy. The heart is normal in size.. There is no pericardial effusion. There are moderate atherosclerotic calcifications in the aorta and coronary arteries. The pulmonary trunk measures 4.0 cm, dilated. There is lobulated low attenuation within the left atrial appendage as seen on axial images 66 series 2, and coronal image 58, consistent with thrombus. UPPER ABDOMEN: Limited non-contrast views of the upper abdomen show no abnormality within the visualized liver, spleen, pancreas, or kidneys. The adrenal glands are normal. BONES: Compression fracture of T11 with 70% loss of vertebral height. Mild compression deformity of T7. SOFT TISSUES: Unremarkable. IMPRESSION: 1. Left atrial appendage thrombus. 2. Moderate bilateral moderate to large pleural effusions associated with compressive atelectasis. 3. Pulmonary venous congestion. Coronary artery disease. 4. Patchy groundglass density in the inferior left upper lobe may represent atelectasis versus pneumonia in the proper clinical setting. Discussed with Loni from Medicine/Surgery 1 at [phone] at 12:30 PM on 04/24/[address] Cantu to contact interpreting radiologist as no direct number is available at this time. Signed by: Dr. Kiko Caballero M.D. on 04/24/2019 2:40 PM
[2019-04-24] MEDS: ENOXAPARIN SODIUM INJ 100 MG/ML SYR SC SCH ×2 (12:58→22:20)
--- NOTE | 2019-04-24 14:33 | Consultation ---
DATE OF CONSULTATION: Cardiology Consultation CHIEF COMPLAINT: The patient is an 83-year-old with shortness of breath. HISTORY OF PRESENT ILLNESS: The patient is an 83-year-old with longstanding history of chronic congestive heart failure and chronic atrial fibrillation, admitted with worsening dyspnea and fluid overload. The patient has bilateral edema and the patient has had no chest pain, no syncope, no dizziness, no fevers. PAST MEDICAL HISTORY: Significant for: 1. Previous coronary artery bypass grafting. 2. Chronic atrial fibrillation. 3. Chronic congestive heart failure. 4. Chronic obstructive pulmonary disease. 5. Previous cerebrovascular accident. 6. History of deep venous thrombosis. 7. Previous cholecystectomy for gallstone pancreatitis. SOCIAL HISTORY: The patient does not drink and does not smoke. FAMILY HISTORY: The patient is currently living at home independently. PHYSICAL EXAMINATION: GENERAL: The patient is lethargic. VITAL SIGNS: Included a temperature of 96.6, blood pressure of 130/64, and the patient's pulse was 74. HEAD, EARS, EYES, NOSE, AND THROAT: The patient's cranium is normocephalic and atraumatic. Extraocular muscles were intact. Sclerae were anicteric. Pupils were equal, round, and reactive to light. There is no pallor or cyanosis of the oral mucosa. There is no erythema or edema of the throat. NECK: Supple. There was jugular venous distention. CHEST: Demonstrated decreased breath sounds and rales bilaterally. CARDIAC: Demonstrated an irregularly irregular rhythm with short 2/6 systolic murmur. ABDOMEN: Demonstrated good bowel sounds. No tenderness and no masses. EXTREMITIES: The patient has 4+ edema on the right leg and 2 to 3+ edema on the left leg. NEUROLOGIC: The patient was awake and alert, and moving all of his extremities. DIAGNOSTIC DATA: The EKG demonstrated ventricular pacing. IMPRESSION: The patient is an 83-year-old admitted with an exacerbation of congestive heart failure. RECOMMENDATIONS: My recommendations are as follows: 1. The patient will need diuresis with IV Lasix. 2. Repeat echocardiogram has been ordered to evaluate the left ventricular size and function. 3. The patient had a thoracentesis done yesterday with some improvement in the breathing. 4. The patient will require LENORE inhibitors and beta blockers. Fernando Cantu MD [facility]/MODL /[id number] cc: Favian Cantu MD
--- NOTE | 2019-04-24 15:22 | NUR ---
REPORT CALLED AND GIVEN TO KAYLIN SOFIA. PATIENT WILL BE TRANSFERRED TO ROOM 211.
--- NOTE | 2019-04-24 15:42 | NUR ---
PATIENT TRANSFERRED TO ROOM 211. LEFT VIA BED IN STABLE CONDITION.
[2019-04-24] MEDS: CARVEDILOL 3.125 MG TAB PO SCH (16:27)
--- NOTE | 2019-04-24 16:39 | Progress Note ---
DATE: SUBJECTIVE: The patient had thoracentesis yesterday. 1800 mL of fluid was removed. Fluid was consistent with a transudate. He notes some improvement in his dyspnea, but still has back pain in the lower thoracic area. A CT scan today showed some thrombosis in the left atrial appendage. He also had possible compression fracture at T11 as well as bilateral pleural effusions. PHYSICAL EXAMINATION: VITAL SIGNS: The patient is afebrile. The blood pressure is 118/58 and the pulse is 65. Saturation is 99% on 6 L. HEENT: Shows no facial swelling or erythema. CARDIAC: Reveals irregular rhythm with normal S1, S2. There are no murmurs or rubs. LUNGS: Auscultation of lungs reveals decreased breath sounds at the bases. There is no wheezing. ABDOMEN: Soft, nontender. There is no rebound or guarding. EXTREMITIES: Shows marked leg edema. IMPRESSION: 1. Acute on chronic systolic congestive heart failure. 2. Left atrial thrombosis. 3. Bilateral pleural effusions. 4. Thoracic compression fracture. 5. Poorly healing wound on the dorsum of the right foot. PLAN: 1. Begin Lovenox at 1 mg/kg subcu daily. 2. Discuss further management of atrial thrombus with Cardiology. 3. Continue diuretics. 4. Pain control for compression fracture. 5. Wound care. Favian Cantu MD [facility]/LETYL /[id number]
[2019-04-24] MEDS: SIMVASTATIN 20 MG TAB PO SCH (20:09)
[2019-04-25] VITALS (9 sets, daily range): BP systolic 134–140; BP diastolic 58–76
[2019-04-25 06:45] LABS: ALANINE AMINOTRANSFERASE 11 IU/L (0-55); ALBUMIN 2.7 g/dL (3.5-5.0); ALBUMIN/GLOBULIN RATIO 0.8 (0.8-2.0); ALKALINE PHOSPHATASE 46 IU/L (40-150); ANION GAP 11.2 mmol/L (8-16); BLOOD UREA NITROGEN 15 mg/dL (7-26); BUN/CREATININE RATIO 22 (6-25); CALCIUM 9.7 mg/dL (8.4-10.2); CARBON DIOXIDE 39 mmol/L (22-29); CHLORIDE 96 mmol/L (98-107); CREATININE, SERUM 0.68 mg/dL (0.72-1.25); EST GLOMERULAR FILTRATION RATE > 60 ML/MIN (60-); GLUCOSE 125 mg/dL (74-118); POTASSIUM 3.2 mmol/L (3.5-5.1); SODIUM 143 mmol/L (136-145)
--- NOTE | 2019-04-25 07:13 | NUR ---
BEDSIDE ROUND COMPLETED WITH KAYLIN HOBBS. PT RESTING IN BED IN NO APPARENT DISTRESS. PT HAS NO C/O PAIN AT THIS TIME. CALL LIGHT IS IN REACH, WILL CONTINUE TO MONITOR.
[2019-04-25] MEDS: FUROSEMIDE INJ 10 MG/ML 4 ML VIAL IV SCH ×2 (08:56→21:42)
[2019-04-25] MEDS: LOSARTAN POTASSIUM 100 MG TAB PO SCH (08:57)
[2019-04-25] MEDS: CARVEDILOL 3.125 MG TAB PO SCH ×2 (08:57→16:46)
[2019-04-25] MEDS: POTASSIUM CHLORIDE 20 MEQ TAB CR PO SCH ×2 (08:57→21:44)
[2019-04-25] MEDS: ENOXAPARIN SODIUM INJ 100 MG/ML SYR SC SCH ×2 (08:57→21:42)
--- NOTE | 2019-04-25 12:47 | Progress Note ---
DATE: SUBJECTIVE: The patient still complains of some pain in the lower thoracic area. He still has dyspnea as well as leg swelling. PHYSICAL EXAMINATION: VITAL SIGNS: The patient is afebrile. The blood pressure is 136/66 and saturation is 94% on 5 L. He is -3 L yesterday. CARDIAC: Reveals an irregularly irregular rhythm with normal S1 and S2. LUNGS: Auscultation of lungs shows decreased breath sounds at the bases. There is no wheezing. ABDOMEN: Soft and nontender. There is no rebound or guarding. EXTREMITIES: Shows 2 to 3+ leg edema with a wound on the dorsum of the right foot. LABORATORY DATA: Blood counts are within normal limits. The BUN to creatinine ratio is normal. The other electrolytes are within normal limits. IMPRESSION: 1. Thoracic compression fracture at T11. 2. Avnof-ac-cvwuwdm systolic congestive heart failure. 3. Left atrial thrombosis. 4. Bilateral pleural effusions. 5. Poorly healing wound on the dorsum of the left foot. PLAN: 1. Continue anticoagulation. The patient is not a candidate for surgical intervention and removal of the atrial thrombus. 2. Continue diuresis. 3. Lidocaine patch to area of compression fracture. The patient is not a candidate for a kyphoplasty at this time because he still requires Lovenox. 4. Wound care. 5. Pain Management consultation. 6. Overall, prognosis is poor. Favian Canut MD [facility]/MODL /[id number]
--- NOTE | 2019-04-25 19:07 | NUR ---
Received patient from day nurse, patient is alert and oriented x4. patient is currently on room air. Introduced self to patient and safety and fall precautions maintained as per hospital protocol: bed in lowest position and locked, needed items beside bed, call abraham placed close to patient, patient in yellow socks, bed alarm activated, patient informed to always call for help. patient is currently stable will continue to monitor.
[2019-04-25] MEDS: SIMVASTATIN 20 MG TAB PO SCH (21:42)
[2019-04-25] MEDS: TRAMADOL HCL 50 MG TAB PO PRN (21:43)
--- NOTE | 2019-04-25 22:24 | Consultation ---
DATE OF CONSULTATION: 04/25/2019 REQUESTING PHYSICIAN: Dr. Kristin Cantu. CONSULTING PHYSICIAN: Dr. Noe Romero, Hematology/Oncology and Pain service. REASON FOR CONSULTATION: Evaluation and management of patient with left atrial thrombus, presently on anticoagulation, and compression fractures of T11 and T7 causing pain. HISTORY OF PRESENTING ILLNESS: Mr. Godinez is a very pleasant 83-year-old gentleman with complicated past medical history including known history of hypertension, coronary artery disease, cardiac arrhythmia, status post AICD placement, congestive heart failure, COPD, chronic lymphedema, and lumbar spine compression fracture, who has been admitted to inpatient floor due to worsening dyspnea and swelling. He was noted to be in CHF exacerbation, presently started on IV diuretics. He underwent cardiac workup as well as CT scan of the chest revealing left atrial thrombus, moderate bilateral pleural effusion, and CT finding of T11 compression fracture up to 70% as well as mild compression deformity of T7. The patient has been started on anticoagulation with Lovenox. Hematology/Oncology and Pain service have been consulted to assist with the management. Presently, the patient is lying comfortably, not in acute distress; however, complaining of the pain, which is 5/10 in intensity, mostly in the mid back area with compression fracture is. He has severe weakness due to comorbidities and lower extremity swelling and not very ambulatory at this moment. PAST MEDICAL HISTORY: 1. COPD. 2. Atrial fibrillation. 3. Congestive heart failure. 4. Chronic lower extremity edema. 5. Atrial fibrillation, status post AICD placement. PAST SURGICAL HISTORY: 1. AICD placement. 2. Coronary artery bypass graft surgery. 3. ERCP with stone extraction of the gallstone. 4. I and D of the dorsum of the right foot. SOCIAL HISTORY: The patient is nonsmoker. Denies alcohol use or illicit drug use. FAMILY HISTORY: Noncontributory. ALLERGIES: THE PATIENT HAS ALLERGY TO LENORE INHIBITORS. CURRENT MEDICATIONS: Reviewed as per electronic medical record. REVIEW OF SYSTEMS: A 14-point review of systems is negative except as mentioned in history of presenting illness. PHYSICAL EXAMINATION: VITAL SIGNS: Reviewed as per electronic medical record. HEENT: PERRLA. Extraocular movement intact. Head is atraumatic and normocephalic. NECK: Supple. CVS: S1 and S2 audible. RESPIRATORY: Decreased bilateral air entry. ABDOMEN: Positive bowel sounds. EXTREMITIES: Mild edema bilaterally in the lower extremities. NEURO: The patient is alert, awake, somewhat oriented; however, hard of hearing. He is also a poor historian. LABORATORY DATA: White blood cell count of 6.3, hemoglobin 12.1, hematocrit 40.7, and platelets 174. BUN 15 and creatinine 0.6. ASSESSMENT: Mr. Godinez is a very pleasant 83-year-old gentleman with complicated past medical history including known history of chronic obstructive pulmonary disease, atrial fibrillation, congestive heart failure, and chronic lower extremity edema, who has been admitted to inpatient floor due to zqyjv-lr-abarzyx congestive heart failure. He underwent workup including CT scan of the chest revealing left atrial thrombus and pleural effusion, which is zaywajph-tt-jwjfl size. He has been started on anticoagulation with Lovenox. Hematology/Oncology and Pain Service have been consulted to assist with the management. I reviewed the records and discussed at length with the patient about his current disease and importance of supportive care. PLAN: 1. Pain appear to be exactly at the level of the thoracic fracture at the T11 vertebrae, probably causing some deformity and wsawj-cf-cbpzhya pain. Pain intensity is 5/10; however, with tramadol, it goes down to 3. At this point, the patient is receiving tramadol every 6 hours; however, I will change dosing to every 4 hours as needed. We will re-evaluate pain in the morning and if it does not improve, then I will add codeine with Tylenol. I would try to avoid higher dosages as it may cause confusion and drowsiness. 2. Left atrial thrombus. The patient has been started on anticoagulation with Lovenox. At this point, continue with anticoagulation; however, may need to be switched to Coumadin once cleared by Cardiology. 3. Moderate bilateral pleural effusion: Plan for Pulmonary Service. 4. Congestive heart failure exacerbation: The patient has been on diuretics and cardiac workup in progress. 5. Anemia, very mild. We will monitor for now. Thank you for the consult. I will continue to be available. Please call with questions. MD TORRI Rosas/MODL /[id number]
[2019-04-26] VITALS (8 sets, daily range): BP systolic 131–156; BP diastolic 61–75
[2019-04-26] MEDS: TRAMADOL HCL 50 MG TAB PO PRN (02:38)
--- NOTE | 2019-04-26 07:36 | NUR ---
patient endorsed to next shift for continuity of care.
[2019-04-26] MEDS ORDERED: POTASSIUM CHLORIDE 20 MEQ TAB CR PO ONE (08:30)
[2019-04-26] MEDS: CARVEDILOL 3.125 MG TAB PO SCH ×2 (09:08→16:54)
[2019-04-26] MEDS: LOSARTAN POTASSIUM 100 MG TAB PO SCH (09:08)
[2019-04-26] MEDS: FUROSEMIDE INJ 10 MG/ML 4 ML VIAL IV SCH ×2 (09:08→20:59)
[2019-04-26] MEDS: LIDOCAINE 5% PATCH TP SCH (09:09)
[2019-04-26] MEDS: ENOXAPARIN SODIUM INJ 100 MG/ML SYR SC SCH ×2 (09:09→20:59)
[2019-04-26] MEDS: POTASSIUM CHLORIDE 20 MEQ TAB CR PO SCH ×2 (09:09→20:59)
--- NOTE | 2019-04-26 13:18 | NUR ---
WOUND CARE CONSULT FOR 83 YO MALE HX OF CHF , HEMATOMA RIGHT DORSAL FOOT SECONDARY TO IMPACT INJURY ( AREA DRAINED BUT FORMED ESCHAR ) KASHIF 15 ON CONSERVATIVE PUP AND ALTERNATING PRESSURE SURFACE LABS: WBC- 6.32 ,HGB- 12.1,GLUCOSE 125 COMPLETE SKIN ASSESSMENT DONE PATIENT PRESENTS WITH [id number] DARK BROWN STABLE ESCHAR NO WARMTH OR DRAINAGE OR ZAYNAB SKIN REDNESS NOTED PATIENT HAS BEEN SEEING DR DOMINIC VICTOR FOR RIGHT FOOT WOUND AND HAS BEEN RECEIVING CHRONIC CLEANING OF STABLE ESCHAR MY RECOMMENDATIONS IS TO MAINTAIN STABLE ESCHAR PROTECT AREA AND KEEP CLEAN AND DRY RECONSULT WOUND CARE IF THERE ARE ANY ADVERSE CHANGES OR FURTHER ASSISTANCE NEEDED Addendum: 04/26/19 at 1332 by Rolando Rothman RN Amended: Links added.
--- NOTE | 2019-04-26 15:26 | Diagnostic Imaging Report ---
EXAMINATION: CHEST 2 VIEWS INDICATION: Shortness of breath COMPARISON: Chest CT of 04/24/2019 FINDINGS: Note that the initially obtained images were incorrectly flipped and incorrectly labeled. Subsequent correction was made to reflect a correction. LINES/TUBES:Left chest pacer. LUNGS:The lungs are moderately inflated. There is perihilar fullness and indistinctness of the pulmonary vasculature. Bibasilar opacities silhouette both hemidiaphragms. PLEURA:Moderate left, small right pleural effusions. No pneumothorax. MEDIASTINUM: Unchanged cardiomegaly. Atherosclerotic calcifications of the thoracic aorta. BONES/SOFT TISSUES:No acute osseous injury. ABDOMEN:No free air under the diaphragm. IMPRESSION: Cardiomegaly and pulmonary edema. Bilateral pleural effusions left greater than right. Patchy bibasilar opacities most likely represent associated subsegmental atelectasis. Signed by: Adam Webb MD on 04/26/2019 3:23 PM
--- NOTE | 2019-04-26 15:57 | Progress Note ---
DATE: SUBJECTIVE: The patient was seen by Pain Management. His back pain is better controlled. He is still receiving diuretics. He still has some dyspnea. PHYSICAL EXAMINATION: VITAL SIGNS: The patient is afebrile. The blood pressure is 131/64 and the saturation is 99%. HEENT: Shows no facial swelling or erythema. CARDIAC: Reveals regular rate and rhythm with normal S1 and S2. LUNGS: Auscultation of lungs shows decreased breath sounds at the bases. There is no wheezing. ABDOMEN: Soft, nontender. There is no rebound or guarding. EXTREMITIES: Show 2+ leg edema bilaterally. IMPRESSION: 1. Ugcez-nz-witjtqh systolic congestive heart failure. 2. Left atrial thrombus. 3. Compression fracture T11. 4. Wound on the dorsum of the right foot. PLAN: 1. Continue diuretics. 2. Repeat chest x-ray. 3. Continue Lovenox and begin Coumadin. 4. Discussed disposition with Case Management. MD PAOLA Charles/ADORE /[id number]
--- NOTE | 2019-04-26 16:55 | NUR ---
Patient refuses to be turned at this time.
[2019-04-26] MEDS ORDERED: WARFARIN SOD 5 MG TAB PO SCH (17:00)
--- NOTE | 2019-04-26 19:30 | NUR ---
BEDSIDE SHIFT REPORT RECEIVED. PATIENT IS RESTING IN BED, AAOX3. RESP EVEN AND UNLABORED. NO ACUTE DISTRESS NOTED. TELE IN PLACE. CALL LIGHT WITH IN EASY REACH. PT DENIES NEEDS AT THIS TIME. BED LOW/LOCKED. SIDE RAILS X2. BED ALARM IS ON. CONTINUE TO MONITOR CLOSELY
[2019-04-26] MEDS: SIMVASTATIN 20 MG TAB PO SCH (20:59)
[2019-04-27] VITALS (7 sets, daily range): BP systolic 114–150; BP diastolic 58–82
[2019-04-27 05:33] LABS: BASOPHILS % 0.2 % (0.0-1.0); EOSINOPHILS # (AUTO) 0.1 (0.0-0.4); HEMATOCRIT 41.1 % (38.2-49.6); HEMOGLOBIN 12.1 g/dL (14.0-18.0); LYMPHOCYTES # (AUTO) 0.9 (1.0-3.2); LYMPHOCYTES % 15.3 % (18.0-39.1); MEAN CORPUSCULAR HEMOGLOBIN 27.4 pg (28-32); MEAN CORPUSCULAR HGB CONC 29.4 g/dL (31-35); MEAN CORPUSCULAR VOLUME 93.2 fL (81-99); MONOCYTES # (AUTO) 0.6 (0.2-0.8); MONOCYTES % 11.4 % (4.4-11.3); NEUTROPHILS # (AUTO) 3.9 (2.1-6.9); NEUTROPHILS % 70.7 % (38.7-80.0); PLATELET COUNT 177 x10e3/uL (140-360); RED BLOOD COUNT 4.41 x10e6/uL (4.3-5.7)
[2019-04-27 05:53] LABS: PROTHROMBIN TIME 13.7 seconds (11.9-14.5)
[2019-04-27 05:58] LABS: ALANINE AMINOTRANSFERASE 13 IU/L (0-55); ALBUMIN 2.8 g/dL (3.5-5.0); ALBUMIN/GLOBULIN RATIO 0.8 (0.8-2.0); ALKALINE PHOSPHATASE 50 IU/L (40-150); ANION GAP 10.1 mmol/L (8-16); BLOOD UREA NITROGEN 18 mg/dL (7-26); BUN/CREATININE RATIO 26 (6-25); CALCIUM 9.9 mg/dL (8.4-10.2); CHLORIDE 92 mmol/L (98-107); EST GLOMERULAR FILTRATION RATE > 60 ML/MIN (60-); GLUCOSE 100 mg/dL (74-118); POTASSIUM 4.1 mmol/L (3.5-5.1); SODIUM 142 mmol/L (136-145)
[2019-04-27 06:09] LABS: CARBON DIOXIDE 44 mmol/L (22-29)
--- NOTE | 2019-04-27 06:24 | NUR ---
notified Dr Cantu about CO2 44. No new order received. continue to monitor closely
[2019-04-27] MEDS: CARVEDILOL 3.125 MG TAB PO SCH ×2 (08:40→17:55)
[2019-04-27] MEDS: POTASSIUM CHLORIDE 20 MEQ TAB CR PO SCH ×2 (08:40→21:08)
[2019-04-27] MEDS: LIDOCAINE 5% PATCH TP SCH (08:40)
[2019-04-27] MEDS: FUROSEMIDE INJ 10 MG/ML 4 ML VIAL IV SCH (08:40)
[2019-04-27] MEDS: LOSARTAN POTASSIUM 100 MG TAB PO SCH (08:40)
[2019-04-27] MEDS: ENOXAPARIN SODIUM INJ 100 MG/ML SYR SC SCH ×2 (08:40→21:08)
--- NOTE | 2019-04-27 12:08 | NUR ---
Spoke with Dr. Cantu, states dc plan is to transfer to [facility], if accepted. CM spoke to pt at bedside. Explained LTAC to pt. He states he would like to speak to his about it before making any decisions. CM offered to call his to explain purpose of LTAC and the services offered there. Pt is agreeable. CM placed call to Jessica Gill at [phone]. Left for callback. CM left business card with pt at bedside.
--- NOTE | 2019-04-27 13:21 | NUR ---
Spoke to pt and at bedside. Pt's states that he has previously been to [facility] and would like to return there if needed. Choice letter signed and placed in chart for [facility]. Copy placed in pt's transition of care folder. Celeste Estrada with [facility] was informed of referral and will come by to warp picker clinicals.
--- NOTE | 2019-04-27 14:00 | NUR ---
SCRAP CHARGER rounding for Dr. Cantu is here seeing the patient. I notified her of patient's hematuria today. She said she notified Dr. Fernando Cantu and he said to continue with Coumadin and Lovenox at this time and continue to monitor the bleeding.
--- NOTE | 2019-04-27 15:25 | NUR ---
MOT initiated and placed with pt's packet at nurse's station. Discharge disposition once approved: [facility] [address] [place] [address]
--- NOTE | 2019-04-27 16:40 | Progress Note ---
DATE: pulmonary Critical Care Progress Note SUBJECTIVE: The patient still has some dyspnea. He still has some back pain. PHYSICAL EXAMINATION: VITAL SIGNS: The patient is afebrile. The vital signs are stable. HEENT: Shows no facial swelling or erythema. CARDIAC: Reveals regular rate and rhythm with normal S1 and S2. LUNGS: Auscultation of lungs reveals decreased breath sounds at the bases. There is no wheezing. ABDOMEN: Soft, nontender. There is a small amount of blood in the Kumar bag. IMPRESSION: 1. Mulaa-rb-dyfctzx systolic congestive heart failure. 2. Atrial thrombosis. 3. Compression fracture with back pain. 4. Hematuria. PLAN: 1. Continue diuresis. 2. Monitor electrolytes. 3. Continue anticoagulation. 4. Tentative transfer to [place] tomorrow. Favian Cantu MD LM[facility]/MODL /[id number]
[2019-04-27] MEDS ORDERED: WARFARIN SOD 5 MG TAB PO SCH (17:45)
--- NOTE | 2019-04-27 19:00 | NUR ---
received report from day nurse. patient is resting comfortably in bed. bed is in lowest position and call abraham is within reach. will continue to monitor patient.
[2019-04-27] MEDS ORDERED: ZOLPIDEM TARTRATE 5 MG TAB PO PRN (21:00)
[2019-04-27] MEDS: SIMVASTATIN 20 MG TAB PO SCH (21:08)
[2019-04-28] VITALS (9 sets, daily range): BP systolic 115–184; BP diastolic 56–105
[2019-04-28] MEDS: TRAMADOL HCL 50 MG TAB PO PRN ×2 (03:54→16:00)
[2019-04-28] MEDS: FUROSEMIDE INJ 10 MG/ML 4 ML VIAL IV SCH (05:24)
--- NOTE | 2019-04-28 06:37 | NUR ---
spoke to dr milner regarding new consult. stated will be in to see pt. primary nurse made aware.
--- NOTE | 2019-04-28 06:48 | NUR ---
patient is complaining of having a hard time catching his breath. O2 sat is 96% on 3L of oxygen via nasal cannula. lung sounds are clear. Ribbon Lapper Tender paged. Awaiting call back from physician.
--- NOTE | 2019-04-28 07:00 | NUR ---
RCD PT AT BED PT IS ALERT AND ORIENTED PT RESTING ON BED NO SIGNS OF ANY DISTRESS NOTED IV PATENT PT HAVING HEMATURIA HE IS ON CHRISTIANSON 16 FR BED LOW AND LOCKED CALL LIGHT IN REACH
--- NOTE | 2019-04-28 07:23 | NUR ---
report given to day nurse. patient is resting comfortably in bed. bed is in lowest position and call light is within reach.
--- NOTE | 2019-04-28 07:24 | NUR ---
MD returned call regarding patient's complaints of difficulty breathing. No new orders received.
[2019-04-28 08:10] LABS: BASOPHILS % 0.1 % (0.0-1.0); EOSINOPHILS # (AUTO) 0.1 (0.0-0.4); EOSINOPHILS % 1.3 % (0.0-6.0); HEMATOCRIT 43.3 % (38.2-49.6); HEMOGLOBIN 13.4 g/dL (14.0-18.0); LYMPHOCYTES # (AUTO) 0.9 (1.0-3.2); LYMPHOCYTES % 14.1 % (18.0-39.1); MEAN CORPUSCULAR HGB CONC 30.9 g/dL (31-35); MEAN CORPUSCULAR VOLUME 90.6 fL (81-99); MONOCYTES # (AUTO) 0.6 (0.2-0.8); MONOCYTES % 9.4 % (4.4-11.3); NEUTROPHILS % 74.7 % (38.7-80.0); PLATELET COUNT 212 x10e3/uL (140-360); RED BLOOD COUNT 4.78 x10e6/uL (4.3-5.7); RED CELL DISTRIBUTION WIDTH 15.1 % (11.7-14.4)
[2019-04-28 08:20] LABS: INR 1.07; PROTHROMBIN TIME 14.4 seconds (11.9-14.5)
[2019-04-28 08:33] LABS: ALANINE AMINOTRANSFERASE 14 IU/L (0-55); ALBUMIN 2.9 g/dL (3.5-5.0); ALBUMIN/GLOBULIN RATIO 0.7 (0.8-2.0); ALKALINE PHOSPHATASE 52 IU/L (40-150); ANION GAP 9.1 mmol/L (8-16); BLOOD UREA NITROGEN 17 mg/dL (7-26); BUN/CREATININE RATIO 23 (6-25); CHLORIDE 91 mmol/L (98-107); CREATININE, SERUM 0.74 mg/dL (0.72-1.25); EST GLOMERULAR FILTRATION RATE > 60 ML/MIN (60-); GLUCOSE 117 mg/dL (74-118); POTASSIUM 4.1 mmol/L (3.5-5.1); SODIUM 139 mmol/L (136-145)
[2019-04-28 09:00] LABS: CARBON DIOXIDE 43 mmol/L (22-29)
[2019-04-28] MEDS: ENOXAPARIN SODIUM INJ 100 MG/ML SYR SC SCH ×2 (09:00→21:18)
[2019-04-28] MEDS: CARVEDILOL 3.125 MG TAB PO SCH ×2 (09:00→10:00)
[2019-04-28] MEDS: POTASSIUM CHLORIDE 20 MEQ TAB CR PO SCH (09:00)
[2019-04-28] MEDS: LIDOCAINE 5% PATCH TP SCH (09:59)
[2019-04-28] MEDS: LOSARTAN POTASSIUM 100 MG TAB PO SCH (09:59)
--- NOTE | 2019-04-28 10:18 | Progress Note ---
DATE: SUBJECTIVE: The patient had hematuria during the night. There is now blood in the Kumar bag. Urology has been consulted. They recommend changing the Kumar and beginning bladder irrigation. PHYSICAL EXAMINATION: VITAL SIGNS: The patient is afebrile. The blood pressure is 137/63 and pulse ox is 97%. HEENT: Shows no facial swelling or erythema. CARDIAC: Reveals regular rate and rhythm with normal S1 and S2. PULMONARY: Auscultation of lungs reveal decreased breath sounds at the bases. There is no wheezing. ABDOMEN: Soft and nontender. There is no rebound or guarding. EXTREMITIES: Show no leg edema or calf tenderness. There is no cyanosis or clubbing. SKIN: Shows no rashes. LABORATORY DATA: White blood cell count is 6.7, hemoglobin is 13.4, and platelet count is 212. IMPRESSION: 1. Hematuria. 2. Acute on chronic systolic congestive heart failure. 3. Atrial thrombosis. 4. Compression fracture with back pain. 5. Chronic obstructive pulmonary disease. PLAN: 1. The patient is scheduled to have his Kumar catheter changed to begin bladder irrigation. 2. Hold off on transfer to LTAC at this time. 3. Continue anticoagulation because of atrial thrombus. 4. Repeat INR and CBC. MD PAOLA Charles/ADORE /[id number]
--- NOTE | 2019-04-28 11:46 | NUR ---
Spoke to Celeste Schumacher, currently pending admin approval.
--- NOTE | 2019-04-28 12:37 | NUR ---
Dr. Jiménez at bedside to change pt davis to size 24 and to start CBI
--- NOTE | 2019-04-28 12:45 | NUR ---
Dr Atkins at bedside, removed pt previous catheter and placed a 24 fr davis catheter. CBI treatment started
--- NOTE | 2019-04-28 13:15 | NUR ---
CBI STARTED BUT IT IS NOT RUNNING AND THE CATHETER LEAKING BLADDER IRRIGATION GIVEN NO CLOTS COMING NOTIFIED THE CHARGE NURSE SHE DID THE IRRIGATION NO CLOTS SHE PAGED DR ZHENG TO NOTIFY THAT
--- NOTE | 2019-04-28 14:13 | NUR ---
DR ZHENG RETURNED THE CALL HE SAID HE COMING TO SEE THE PATIENT
--- NOTE | 2019-04-28 15:35 | Diagnostic Imaging Report ---
EXAM: Renal Ultrasound INDICATION: ^BLEEDING,HEMATURIA ^Y COMPARISON: None TECHNIQUE: Transverse and longitudinal images of the kidneys and bladder were obtained. FINDINGS: Right Kidney: Length: 11.4 cm Appearance: Increased echogenicity. Collecting system: No hydronephrosis Stones: 5 mm echogenic focus at the midpole with twinkle artifact. Cyst/Mass: Upper pole exophytic anechoic simple cyst measures 5.5 x 3.1 x 4.4 cm. Upper pole 1.4 x 1.4 x 1.4 cm anechoic cyst with an internal septation but no associated vascularity (Bosniak 2). Left Kidney: Length: 9.8 cm Appearance: Increased echogenicity. Collecting system: No hydronephrosis Stones: None Cyst/Mass: None Bladder: No mass or calculi. Kumar catheter terminates in the bladder. IMPRESSION: Increased renal parenchymal echogenicity, consistent with medical renal disease. No hydronephrosis. Right upper pole renal cysts as above. 5 mm right renal calculus. Signed by: Adam Webb MD on 04/28/2019 3:31 PM
--- NOTE | 2019-04-28 15:37 | NUR ---
pt is not able to urinate bp 184/107 mm/hg paged rivka Ballesteros to notify that
[2019-04-28] MEDS ORDERED: HYDROCODONE/APAP 7.5MG-325MG 1 EA TAB PO PRN (16:00)
--- NOTE | 2019-04-28 16:03 | NUR ---
dr sanchez returned the call and got new orders
--- NOTE | 2019-04-28 17:20 | NUR ---
DR ZHENG CAME TO SEE THE PT HE SAID OK TO TURN OFF CBI AND HANG THE TUBINGS
--- NOTE | 2019-04-28 18:53 | NUR ---
Pt resting in bed, no distress. Report given to the oncoming nurse.
[2019-04-28] MEDS: SIMVASTATIN 20 MG TAB PO SCH (21:18)
[2019-04-29 00:09] VITALS: BP 130/63
[2019-04-29 04:00] VITALS: BP 132/60
[2019-04-29] MEDS: FUROSEMIDE INJ 10 MG/ML 4 ML VIAL IV SCH (06:06)
[2019-04-29 07:54] VITALS: BP 118/58
[2019-04-29 08:01] VITALS: BP 118/58
--- NOTE | 2019-04-29 08:36 | NUR ---
Dr. Cantu ready to transfer pt to [facility] once cleared by urology. CM placed call to Dr. Jiménez and left a VM. Awaiting callback.
[2019-04-29] MEDS: LIDOCAINE 5% PATCH TP SCH (09:00)
[2019-04-29] MEDS: LOSARTAN POTASSIUM 100 MG TAB PO SCH (09:00)
[2019-04-29] MEDS: ENOXAPARIN SODIUM INJ 100 MG/ML SYR SC SCH (09:00)
[2019-04-29] MEDS: CARVEDILOL 3.125 MG TAB PO SCH (09:00)
--- NOTE | 2019-04-29 09:15 | NUR ---
PAGED DR ZHENG TO GET CLARIFICATION REGARDING CBI SINCE OT GOING [facility]
--- NOTE | 2019-04-29 09:27 | NUR ---
Per Dr. Jiménez, pt cleared to transfer to [facility]. CM notified Celeste with [facility]. Awaiting MOT.
--- NOTE | 2019-04-29 09:27 | NUR ---
DR ZHENG CAME TO SEE THE PT GOT THE ORDER TO DC CBI
--- NOTE | 2019-04-29 10:31 | NUR ---
LONG-TERM ACUTE CARE DISCHARGE INFORMATION PATIENT HAS BEEN ACCEPTED TO: [facility] [address] [place] [place] [address] ACCEPTING LANG PATH THERAPIST: Janene Zavala, commercial administrator ACCEPTING MD: Dr. Cantu ROOM: 327 NURSE CALL REPORT TO: [phone] THE FOLLOWING DOCUMENTS MUST ACCOMPANY PATIENT FOR TRANSFER: copy of chart, transfer MAR COPIED CHART: day camp unit leader MOT INFO RECEIVED FROM: Celeste Estrada PHYSICIANS ORDER/RECONCILED MED LIST: to be obtained by bedside RN [id number] DNR: n/a MOT was completed and placed with pt's packet at nurse's station. KAYLIN Peter was notified of MOT. MAR faxed to [phone].
[2019-04-29 11:38] VITALS: BP 110/55
--- NOTE | 2019-04-29 12:15 | NUR ---
REPORT GIVEN TO CARLIE AND NOTIFIED THE CLINICAL REGISTERED NURSE
--- NOTE | 2019-04-29 14:41 | NUR ---
PT DISCHARGED TO [facility] IN SAFE CONDITION
--- NOTE | 2019-04-30 04:26 | Discharge Summary ---
DISCHARGE DIAGNOSES: 1. Duusk-ja-zrnyzmy systolic congestive heart failure. 2. Atrial thrombosis. 3. Compression fracture with pain in the T11 area. 4. Chronic obstructive pulmonary disease. 5. Hematuria. CONSULTING PHYSICIAN: 1. Dr. Fernando Cantu of Cardiology. 2. Dr. Jiménez of Urology. DISCHARGE MEDICATIONS: 1. Carvedilol 3.125 p.o. b.i.d. 2. Lovenox 100 mg subcu q.12. 3. Lasix 40 mg IV daily. 4. Hydrocodone 7.5 p.o. q.4. 5. Lidocaine patch to thoracic area daily. 6. Cozaar 100 mg daily. 7. Simvastatin 20 mg p.o. daily. 8. Ambien 5 mg p.o. at bedtime p.r.n. HISTORY OF PRESENT ILLNESS: The patient is an 83-year-old man. He has a history of prior coronary bypass grafting and systolic cardiomyopathy. He required admission with worsening dyspnea, bilateral effusions, and leg edema. HOSPITAL COURSE: The patient was admitted. He had a thoracentesis done. He was subsequently started on Lasix and given antibiotics and diuretics. He improved with this. However, a CT scan of the chest showed an atrial thrombus. The patient was started on Lovenox 1 mg/kg twice a day and was then started on warfarin. He developed some hematuria. He was seen by Urology. He had a Kumar catheter placed and had bladder irrigation. DISPOSITION: The patient will be discharged to [facility]. MD PAOLA Charles/ADORE /[id number]
--- NOTE | 2019-04-30 20:32 | Progress Note ---
DATE: CHIEF COMPLAINT: The patient is an 83-year-old gentleman with history of coronary artery disease, status post bypass graft, cardiomyopathy and atrial thrombus, admitted due to acute on chronic pain. He had a workup revealing anemia and hematuria. The patient has been seen and evaluated by Urology. Due to the pain issue, he has been started on hydrocodone along with tramadol. The patient is going to be discharged to [facility]. We will follow up there. MD TORRI Rosas/ADORE /[id number]
== END 2019-04-29 14:41 | DRG 292 ==
LOC: MED/SURG 14:34 → OBSVTOIN 04-24 12:57 → MED/SURG2 04-24 15:42 → UNDODISIN 04-27 12:43
PROVIDERS: ADMIT Internal Medicine Critical Care Medicine; ATTEND Internal Medicine Critical Care Medicine
PROC: 0W9B3ZX Drainage of Left Pleural Cavity, Percutaneous Approach, Diagnostic (ICD-10-PCS; principal; 2019-04-23)
DX: I11.0 Hypertensive heart disease with heart failure (principal); M48.54XA Collapsed vertebra, not elsewhere classified, thoracic region, initial encounter for fracture; I48.20 Chronic atrial fibrillation, unspecified; I50.23 Acute on chronic systolic (congestive) heart failure; Z95.1 Presence of aortocoronary bypass graft; Z95.810 Presence of automatic (implantable) cardiac defibrillator; J44.9 Chronic obstructive pulmonary disease, unspecified; I51.3 Intracardiac thrombosis, not elsewhere classified; D64.9 Anemia, unspecified; Z88.8 Allergy status to other drugs, medicaments and biological substances; S90.921A Unspecified superficial injury of right foot, initial encounter; Z90.49 Acquired absence of other specified parts of digestive tract; Z86.718 Personal history of other venous thrombosis and embolism; Z79.01 Long term (current) use of anticoagulants; R31.9 Hematuria, unspecified
CPT/HCPCS: 36415; 71046; 71260; 76770; 80053; 82948; 83615; 83735; 84157; 84478; 85025; 85610; 87070; 87205; 88112; 88305; 89051; 93005; 93306; G0378; J1650; J1940; Q9967

== ENCOUNTER 2019-08-08 10:48 | Inpatient (IN) | payer MEDICARE ==
[~2019-08-08] VITALS: Ht 182.9 cm; Wt 66.7 kg
[2019-08-08] VITALS (11 sets, daily range): BP systolic 81–96; BP diastolic 50–65
[2019-08-08] MEDS ORDERED: SODIUM CHLORIDE 0.9% 1000ML 1,000 ML IV STA ×2 (10:52→12:06)
[2019-08-08] MEDS ORDERED: PIPER-TAZ 3.375 GM 50 ML IV ONE (11:00)
[2019-08-08] MEDS ORDERED: ASPIRIN 81 MG CHEW TAB PO ONE (11:00)
[2019-08-08] MEDS ORDERED: SODIUM CHLORIDE 0.9% 1000ML 1,000 ML ONE ×2 (11:17→20:11)
[2019-08-08] MEDS ORDERED: SODIUM CHLORIDE 0.9% 1000ML 1,000 ML IV ONE (11:45)
[2019-08-08 11:49] LABS: BASOPHILS # (AUTO) 0.1 (0.0-0.1); BASOPHILS % 0.4 % (0.0-1.0); EOSINOPHILS # (AUTO) 0.2 (0.0-0.4); EOSINOPHILS % 0.7 % (0.0-6.0); HEMATOCRIT 35.3 % (38.2-49.6); HEMOGLOBIN 10.9 g/dL (14.0-18.0); LYMPHOCYTES # (AUTO) 1.9 (1.0-3.2); LYMPHOCYTES % 6.7 % (18.0-39.1); MEAN CORPUSCULAR HEMOGLOBIN 26.8 pg (28-32); MEAN CORPUSCULAR HGB CONC 30.9 g/dL (31-35); MEAN CORPUSCULAR VOLUME 86.7 fL (81-99); MONOCYTES # (AUTO) 0.5 (0.2-0.8); MONOCYTES % 1.8 % (4.4-11.3); NEUTROPHILS # (AUTO) 24.6 (2.1-6.9); NEUTROPHILS % 88.7 % (38.7-80.0); PLATELET COUNT 252 x10e3/uL (140-360); RED BLOOD COUNT 4.07 x10e6/uL (4.3-5.7); RED CELL DISTRIBUTION WIDTH 16.7 % (11.7-14.4)
[2019-08-08 12:01] LABS: INR 1.98; PROTHROMBIN TIME 23.9 seconds (11.9-14.5)
[2019-08-08] MEDS ORDERED: SODIUM CHLORIDE 0.9% 1000ML 1,000 ML IV SCH (12:07)
[2019-08-08 12:10] LABS: ALBUMIN 1.7 g/dL (3.5-5.0); ALBUMIN/GLOBULIN RATIO 0.4 (0.8-2.0); CALCIUM 9.7 mg/dL (8.4-10.2); CREATININE, SERUM 1.68 mg/dL (0.72-1.25)
[2019-08-08 12:14] LABS: CLARITY,URINE CLOUDY (CLEAR); COLOR,URINE BROWN (YELLOW); LEUKOCYTE ESTERASE ,URINE 1+ (NEGATIVE); NITRITE,URINE POSITIVE (NEGATIVE); PROTEIN,URINE DIPSTICK 2+ (NEGATIVE)
[2019-08-08 12:15] LABS: BILIRUBIN,URINE SMALL (NEGATIVE); KETONES,URINE NEGATIVE (NEGATIVE); URINE UROBILINOGEN 0.2 mg/dL (0.2 - 1)
[2019-08-08 12:16] LABS: CREATINE KINASE MB 1.4 ng/mL (0-5.0)
[2019-08-08 12:18] LABS: BACTERIA,URINE FEW /HPF; EPITHELIAL CELLS,URINE FEW /LPF; RBC,URINE 21-50 /HPF (0-5); WBC,URINE (MAN) 21-50 /HPF (0-5)
[2019-08-08 12:19] LABS: B-TYPE NATRIURETIC PEPTIDE2 4092.1 pg/mL (0-100)
--- NOTE | 2019-08-08 12:25 | NUR ---
Dr. Camp at bedside preparing to insert central line. Patient remains hypotensive.
[2019-08-08] MEDS ORDERED: ONDANSETRON HCL INJ 2MG/ML 2ML 2 MG/ML VIAL IV PRN (13:15)
[2019-08-08] MEDS ORDERED: HYDRALAZINE HCL 20 MG/ML VIAL IV PRN (13:15)
--- NOTE | 2019-08-08 13:19 | Diagnostic Imaging Report ---
Examination: Single AP view of the chest. COMPARISON: April 26, 2019 INDICATION: Weakness DISCUSSION: Lines/tubes: Sternotomy wires. Single lead pacemaker. Lungs: Left pleural effusion with adjacent airspace opacity. Small right pleural effusion. Pleura: There is no pleural effusion or pneumothorax. Heart and mediastinum: The heart and the mediastinum are unremarkable. Bones and soft tissues: No acute bony abnormalities. IMPRESSION: 1. Left pleural effusion with adjacent atelectasis versus pneumonia. Signed by: Dr. Jeff Lama M.D. on 08/08/2019 1:16 PM
[2019-08-08] MEDS: PANTOPRAZOLE SOD 40 MG TABEC PO SCH (13:30)
[2019-08-08 13:39] LABS: LYMPHOCYTES % (MANUAL) 7 % (19-48); NEUTROPHILS % (MANUAL) 93 % (40-74)
[2019-08-08] MEDS: ALBUTEROL/IPRATROPIUM 3 ML NEB NEB PRN (13:48)
[2019-08-08] MEDS ORDERED: VANCOMYCIN 1GM/NS 250 ML 250 ML IV ONE (14:00)
[2019-08-08] MEDS ORDERED: FUROSEMIDE 20 MG TAB PO SCH (17:00)
[2019-08-08] MEDS ORDERED: WARFARIN SOD 3 MG TAB PO SCH (17:00)
[2019-08-08] MEDS ORDERED: VANCOMYCIN 1GM/NS 250 ML 250 ML ONE (17:28)
[2019-08-08 18:52] LABS: CREATINE KINASE MB 2.4 ng/mL (0-5.0)
[2019-08-08] MEDS: PIPER-TAZ 3.375 GM 50 ML IV SCH (18:59)
--- NOTE | 2019-08-08 19:30 | Operative Report ---
DATE OF PROCEDURE: SURGEON: Favian Cantu MD PROCEDURE: Central line placement under ultrasound guidance. PREOPERATIVE DIAGNOSIS: Urinary tract infection with sepsis. POSTOPERATIVE DIAGNOSIS: Urinary tract infection with sepsis. ANESTHESIA: A 1% lidocaine for local anesthesia. CONSENT: Consent was considered emergent because of sepsis and need for pressors. DESCRIPTION OF PROCEDURE: The patient was placed in a supine position. The left neck was prepped sterilely with chlorhexidine. The left IJ was located with the ultrasound machine. The left IJ was cannulated under direct visualization. A wire was placed through the needle and then, a catheter was placed over the wire through the Seldinger technique, but the distal port did not draw back. The line was subsequently removed. Pressure was applied. The patient was re-prepped in the left groin. The left femoral vein was located with the ultrasound machine. It was cannulated under direct visualization. A dilator was then used to dilate the skin. Seldinger technique was used to place a triple-lumen catheter over the wire. All the ports were flushed. COMPLICATIONS: None. ESTIMATED BLOOD LOSS: 5-10 mL. Favian Cantu MD [facility]/MODL /[id number]
--- NOTE | 2019-08-08 20:16 | Consultation ---
DATE OF CONSULTATION: 08/08/2019 Pulmonary Critical Care Consultation CHIEF COMPLAINT: Severe systolic cardiomyopathy with urinary tract infection and increased malaise. HISTORY OF PRESENT ILLNESS: The patient is an 83-year-old man. He has a history of prior coronary artery bypass grafting as well as atrial fibrillation. 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 He also has atrial thrombosis that required prolonged treatment with anticoagulants. He has had recurrent pleural effusions and has had multiple thoracenteses in the past. [place] and some confusion. He continues to have some pyuria. He was given additional fluids in the ER and started on antibiotics. PAST SURGICAL HISTORY: 1. Status post coronary artery bypass grafting. 2. Status post pacemaker and AICD. 3. Status post ERCP with stone extraction for gallstone pancreatitis. 4. Status post incision and drainage of the right foot last year for cellulitis. PAST MEDICAL HISTORY: 1. Acute on chronic systolic congestive heart failure. 2. Atrial fibrillation. 3. Nephrolithiasis. 4. Leg edema. 5. COPD. ALLERGIES: LENORE INHIBITORS. SOCIAL HISTORY: The patient is not an active smoker or drinker. FAMILY HISTORY: Noncontributory. REVIEW OF SYSTEMS: The patient is afebrile. He has no headache. He has no neck pain. He is not complaining of chest pain. He does have some dyspnea. He notes some back pain where he had a prior compression fracture. He is not complaining of any abdominal pain. There is no nausea or vomiting. PHYSICAL EXAMINATION: VITAL SIGNS: Stable. The blood pressure is 98/60 and the pulse is 65. The saturation is 100%. HEENT: Shows no facial swelling or erythema. CARDIAC: Reveals regular rate and rhythm with normal S1 and S2. LUNGS: Auscultation of lungs shows decreased breath sounds on the left side. ABDOMEN: Soft, nontender. There is no rebound, no guarding. EXTREMITIES: Show no leg edema or calf tenderness. There is no cyanosis or clubbing. SKIN: Shows no rashes. NEUROLOGICAL: Shows no focal abnormalities. The patient does have some confusion. LABORATORY DATA: White blood cell count is 27.7 and hemoglobin is 10.9. The platelet count is 252. The BUN to creatinine ratio is 42 to 1.68. Blood sugar is 217. The BNP is 4092. RADIOGRAPHIC DATA: Chest x-ray shows a left pleural effusion. Urinalysis shows 20-50 white blood cells. IMPRESSION: 1. Acute on chronic systolic congestive heart failure. 2. Severe cardiomyopathy with an ejection fraction of 15% to 20%. 3. History of atrial thrombosis requiring prolonged anticoagulation. 4. Urinary tract infection with severe sepsis, present on admission. 5. Continue metabolic encephalopathy. 6. Atrial fibrillation. 7. History of chronic obstructive pulmonary disease. PLAN: 1. The patient will receive IV antibiotics. 2. He did receive fluids in the emergency department. We will hold off on any additional fluids at this time because of his severe cardiomyopathy and CHF. 3. Continue warfarin and anticoagulation. 4. Physical therapy and out of bed as tolerated. 5. Prognosis is poor. 6. Consider palliative care or hospice. MD PAOLA Charles/[facility] /[id number]
[2019-08-08] MEDS: SIMVASTATIN 20 MG TAB PO SCH (20:23)
[2019-08-08] MEDS: TRAMADOL HCL 50 MG TAB PO PRN (20:24)
[2019-08-08] MEDS ORDERED: DOXAZOSIN MESYLATE 8 MG PO SCH (21:00)
[2019-08-09] VITALS (23 sets, daily range): BP systolic 83–142; BP diastolic 54–92
[2019-08-09] MEDS: PIPER-TAZ 3.375 GM 50 ML IV SCH ×2 (00:58→06:29)
--- NOTE | 2019-08-09 02:41 | Diagnostic Imaging Report ---
Examination: Single AP view of the chest. COMPARISON: 08/08/2019 INDICATION: CHF DISCUSSION: See impression IMPRESSION: 1. No interval change in left pleural effusion with adjacent lower lobe and lingular airspace disease, which may reflect atelectasis or pneumonia. 2. No new consolidations. 3. Stable cardiomediastinal contour. Signed by: Dr. Fernando Enriquez M.D. on 08/09/2019 2:38 AM
--- NOTE | 2019-08-09 02:58 | Diagnostic Imaging Report ---
EXAMINATION: CT scan of the chest without contrast. TECHNIQUE: Spiral CT images of the chest were performed from the lung apices to the level of the adrenal glands. No intravenous contrast was administered per referring physician request. Coronal and sagittal reformatted images were obtained. COMPARISON: CT chest with contrast 04/24/2019. CT abdomen and pelvis 01/03/2018 CLINICAL HISTORY:Pneumonia versus effusion DISCUSSION: ABSENCE OF INTRAVENOUS CONTRAST DECREASES SENSITIVITY FOR DETECTION OF FOCAL LESIONS AND VASCULAR PATHOLOGY. LINES/TUBES: Left subclavian approach cardiac device with lead terminating in the right ventricle. LUNGS AND AIRWAYS: Moderate left and small right pleural effusions, average attenuation 10-15 Hounsfield units with adjacent left lower lobe airspace disease, compatible with aspiration, as filling defects are noted within the left lower lobe bronchi and several segmental bronchi. Right posterior basal segmental aspiration is also noted. Smaller focus of inferior lingular segmental aspiration. Stable 6 mm right apical pulmonary nodule relative to 04/24/2019. PLEURA: As above HEART AND MEDIASTINUM: The thyroid gland is normal. Mild ectasia of the ascending thoracic aorta (4 cm). Postsurgical changes of coronary artery bypass graft. Pulmonary outflow tract is mildly enlarged. No pericardial effusion. Multiple calcified mediastinal lymph nodes. No hilar or mediastinal lymphadenopathy. LYMPH NODES: There is no mediastinal, hilar or axillary lymphadenopathy. ABDOMEN: Visualized portions of the liver and pancreas are normal. hypoattenuating lesion within the splenic substance is partially visualized, new compared to CT abdomen and pelvis 01/03/2018, with associated perisplenic inflammation. Left upper pole renal cyst versus hydronephrosis partially visualized. BONES AND SOFT TISSUES: Osteopenia. Stable severe anterior compression deformity of T11 relative to 04/24/2019. Stable mild anterior compression deformity of T5 and T7. Small foci of gas in the soft tissues of the right shoulder may represent foci of intravenous air related to recent medication administration. IMPRESSION: Moderate left and small right pleural effusions with left lower lobe and inferior lingular aspiration pneumonia and segmental right lower lobe aspiration pneumonia. Stable 6 mm right apical nodule relative to 04/24/2019. An additional one year follow-up may be obtained to assess for continued stability. Ectasia of the ascending thoracic aorta (4 cm) with atherosclerotic disease and changes of coronary artery bypass graft. Enlargement of the pulmonary outflow tract compatible with underlying pulmonary hypertension. Hypoattenuating lesion in the splenic substance with perisplenic fat stranding is incompletely visualized. This may represent an abscess in the clinical setting of septic shock. Partially visualized left upper pole peripelvic renal cyst versus hydronephrosis. For further evaluation of these findings, CT abdomen and pelvis with contrast is suggested. Signed by: Dr. Fernando Enriquez M.D. on 08/09/2019 2:55 AM
[2019-08-09 05:28] LABS: BASOPHILS % 0.1 % (0.0-1.0); EOSINOPHILS % 0.1 % (0.0-6.0); HEMATOCRIT 29.8 % (38.2-49.6); HEMOGLOBIN 8.9 g/dL (14.0-18.0); LYMPHOCYTES # (AUTO) 1.1 (1.0-3.2); LYMPHOCYTES % 5.8 % (18.0-39.1); MEAN CORPUSCULAR HEMOGLOBIN 26.3 pg (28-32); MEAN CORPUSCULAR HGB CONC 29.9 g/dL (31-35); MEAN CORPUSCULAR VOLUME 88.2 fL (81-99); MONOCYTES # (AUTO) 0.6 (0.2-0.8); MONOCYTES % 3.4 % (4.4-11.3); NEUTROPHILS # (AUTO) 16.8 (2.1-6.9); NEUTROPHILS % 89.8 % (38.7-80.0); PLATELET COUNT 205 x10e3/uL (140-360); RED BLOOD COUNT 3.38 x10e6/uL (4.3-5.7); RED CELL DISTRIBUTION WIDTH 16.8 % (11.7-14.4)
[2019-08-09 05:50] LABS: CREATINE KINASE MB 2.4 ng/mL (0-5.0)
[2019-08-09 06:43] LABS: ALANINE AMINOTRANSFERASE 21 IU/L (0-55); ALBUMIN 1.4 g/dL (3.5-5.0); ALBUMIN/GLOBULIN RATIO 0.4 (0.8-2.0); ALKALINE PHOSPHATASE 95 IU/L (40-150); ANION GAP 11.1 mmol/L (8-16); BLOOD UREA NITROGEN 40 mg/dL (7-26); BUN/CREATININE RATIO 37 (6-25); CALCIUM 8.6 mg/dL (8.4-10.2); CARBON DIOXIDE 26 mmol/L (22-29); CHLORIDE 105 mmol/L (98-107); CREATININE, SERUM 1.08 mg/dL (0.72-1.25); EST GLOMERULAR FILTRATION RATE > 60 ML/MIN (60-); GLUCOSE 101 mg/dL (74-118); POTASSIUM 3.1 mmol/L (3.5-5.1); SODIUM 139 mmol/L (136-145)
[2019-08-09] MEDS: PANTOPRAZOLE SOD 40 MG TABEC PO SCH (07:40)
[2019-08-09] MEDS: ASPIRIN 325 MG TAB PO SCH (07:43)
--- NOTE | 2019-08-09 08:05 | NUR ---
offered to help patient with feeding him breakfast on multiple occasions. patient stated "not right now."
--- NOTE | 2019-08-09 08:05 | NUR ---
patient swallowed pills without difficulty
[2019-08-09] MEDS ORDERED: HYDROCHLOROTHIAZIDE 25 MG TAB PO SCH (09:00)
[2019-08-09] MEDS ORDERED: LOSARTAN POTASSIUM 25 MG TAB PO SCH (09:00)
[2019-08-09] MEDS ORDERED: POTASSIUM CHLORIDE 20MEQ/100ML 100 ML IV ONE (09:20)
[2019-08-09] MEDS: MEROPENEM 1GM 100 ML IV SCH ×2 (09:30→17:12)
[2019-08-09 10:25] LABS: INR 1.68
--- NOTE | 2019-08-09 10:53 | Progress Note ---
DATE: Pulmonary Critical Care Progress Note SUBJECTIVE: The patient has remained on nasal cannula overnight. He is also on antibiotics. He had a central line placed yesterday, but has not required any pressors. PHYSICAL EXAMINATION: VITAL SIGNS: Blood pressure is 118/85 and the saturation is 100%. The pulse is 65 and respiratory rate is 18. HEENT: Shows no facial swelling or erythema. Oropharynx is normal. LYMPHATIC: Shows no submandibular, cervical, or supraclavicular adenopathy. CARDIAC: Reveals regular rate and rhythm with normal S1 and S2. LUNGS: Auscultation of lungs shows decreased breath sounds at the bases. There is no wheezing. ABDOMEN: Soft, nontender. There is no rebound or guarding. EXTREMITIES: Shows 1+ leg edema. There is a Kumar in place. There are some decubitus breakdown that was present on admission. LABORATORY DATA: White blood cell count is 18.7 and hemoglobin is 8.9. The platelet count is 205. The BUN to creatinine ratio is 40/1.08 and the albumin is 1.4. INR is 1.98. The white blood cell count is 21-50. CT scan of the chest shows moderate left and small right pleural effusions. There is some aspiration pneumonia in the lingula and the right lower lobe. There are also some atherosclerotic changes in the aorta and the coronary arteries. There is a small 6 mm nodule in the right apex that is unchanged since April 2019. IMPRESSION: 1. Urinary tract infection with severe sepsis, present on admission. 2. Aspiration pneumonia with sepsis, present on admission. 3. Acute on chronic systolic congestive heart failure. 4. Severe cardiomyopathy with ejection fraction of 15%-20%. 5. Atrial fibrillation. 6. Metabolic encephalopathy. 7. History of atrial thrombosis. PLAN: 1. I spoke to Jessica Smith, the next of kin listed on the record. I also spoke with the patient and the nursing staff. 2. The patient has been DNR on prior admissions, but his living will documents were misplaced when he relocated to [place]. At this time he is not able to make his own decisions and the family is deciding about renewing the DNR. 3. A broadened antibiotic coverage to Merrem q.8h to cover for hospital acquired pathogens. 4. Continue current cardiac regimen and anticoagulation. 5. Diuresis as tolerated. 6. Continue to monitor blood counts and laboratory values. 7. Prognosis remains very poor. MD PAOLA Charles/ADORE /[id number]
--- NOTE | 2019-08-09 12:45 | NUR ---
WENT TO SPEAK WITH PT AND GIRLFRIEND KYMBERLY FERNANDO, SHE STATES SHE GAVE ALL SUPPLIES, WALLET AND BELONGINGS TO [facility]. PT STATES HE WANTS TO DISCHARGE TO GIRLFRIENDS HOME. SHE STATES SHE IS UNABLE TO CARE FOR HIM. SHE KEPT STATING THAT THE PT SIGNED A BUNCH OF PAPERS AT [facility] BUT THE [facility] HAS EVERYTHING. CALLED [facility] AND WAITING FOR CALL BACK. RECEIVED CALL FROM [facility] STATING PT WAS SET TO DISCHARGE ON HOME HEALTH BUT [facility] BUT WAS TOLD WENT TO [facility]. WILL CONTINUE TO INVESTIGATE AND FOLLOW, REACHED OUT TO DR SUGGS TO SEE ABOUT PLAN WAITING ON RESPONSE.
--- NOTE | 2019-08-09 13:33 | NUR ---
CALLED [facility] [phone] LOCAL OFFICE TO FIND OUT MILLER ROD MILL ASSIGNED TO CASE IS SARANYA [phone] , LEFT MESSAGE TO RETURN CALL TO BE ABLE TO COMPLETE CARE FOR THIS PT.
--- NOTE | 2019-08-09 13:58 | NUR ---
SPOKE WITH [facility] AUTO CRANE DRIVER DONTAE WHOM STATES THE PLAN WAS TO DISCHARGE PT HOME TO GIRLFRIENDS HOME WITH [facility] THIS NEXT WEEK. THE PT HAD RED URINE AND WAS DECLINING AND REFUSING TREATMENT AT FACILITY SO THEY SENT TO OUR ED. THEY ALSO REPORT THEY CALLED APS DUE TO THE GRANDSON (WHICH NO ONE KNOWS NAME, ADDRESS OR PHONE NUMBER) PRESENTED TO FACILITY WITH A LIVING WILL STATING HE WOULD GET ALL BELONGINGS AND DETERMINE CARE. FACILITY HAD CONCERN BECAUSE PT STATED TO THEM HE WAS NOT IN AGREEMENT WITH GOING WITH THE GRANDSON. FACILITY WAS TOLD BY APS PT COULD NOT DISCHARGE WITH [facility] AND QUESTIONED VALIDITY OF PAPERWORK. WAITING FOR CALL BACK FROM APS TO CONFIRM THIS REPORT.
[2019-08-09 14:30] LABS: FERRITIN 1202.69 ng/mL (21.81-274.66)
--- NOTE | 2019-08-09 15:57 | NUR ---
Nutrition Intervention Note RD Recommendation(s) for Physician: - Continue current diet per MD - Recommend Ensure Compact BID and Ensure pudding once daily - Consider an appetite stimulant such as Megace or Marinol if medically appropriate 2/2 poor intake - Recommend MVI with minerals once daily for adequacy Pt meets criteria for moderate protein calorie malnutrition Plan of Care: RD following, monitoring for tolerance and adequacy. Nutrition reason for involvement: Nutrition Risk Trigger RD Assessment 08/08: 83 YOM admitted from SNF for septic shock, seen today per MST trigger. 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 Per RN pt refused breakfast and would only eat a few bites at lunch per 's assistance and encouragement. Noted significant wt loss of 82# per chart, questionable admit wt of 141#- pt appears heavier than 141# per his height and build. Pt declined supplements, discussed with RN- will order to try as intake is poor. Pt denies any difficulty chewing or swallowing and denies any N/V/C/D. Pt with no questions or concerns at time of visit. Rec's discussed with RN on unit. Will continue to monitor. Principal Problems/Diagnoses: septic shock PMH: CABG, Afib, COPD, CHF, AICD, gallstone pancreatitis GI: WDL Skin: No PU/skin breakdown Labs: 08/08: Na 139, k 3.1, BUN 40, Cr 1.08, Gluc 101 Meds: abx, protonix, zocor, coumadin, kdur, lasix, zofran Ht: 72 in Wt: 141.38 lb BMI: 19.2 kg/m2 IBW: 178 lb Malnutrition Evaluation (08/09/19) The patient meets criteria for MODERATE protein-calorie malnutrition. Energy intake: Poor intake since admit Weight loss: FOX, questionable 82# wt loss in 3 months. Per PA-C on unit, pt appears wt stable. Fat loss: Moderate, very little tricep skinfold thickness Muscle loss: Moderate, shoulder square Supporting Evidence: Fluid accumulation: none Functional Status: not assessed Nutrition Prescription (Diet Order): Cardiac Estimated Nutritional Needs: calories/day (25-30 kcal/kg CBW) g protein/day (1-1.5 g pro/kg CBW) Diet Adequacy: (Meeting calorie needs, Meeting protein needs, Meeting fluid needs, Not meeting calorie needs, Not meeting protein needs) Diet Tolerance: Diet Education Needs Assessment: Diet education not indicated at this time, resides at SNF. Nutrition Care Level: moderate Nutrition Diagnosis: Inadequate energy and protein intake related to current medical conditions as evidenced by probable wt loss and decreased po intake. Goal: Patient will meet 75-100% of estimated needs by follow up Progress: N/A Interventions: -fat, mineral modified diet, Commercial beverage, Commercial food, Prescription medications, Multivitamin/mineral supplement therapy, Collaboration with other providers Monitoring/Evaluation: -Total energy intake, Total protein intake, Prescription medication, Modified diet, Liquid supplement, Weight change Signed: Suyapa Schuler RD, LD, [facility]
[2019-08-09] MEDS: FUROSEMIDE 20 MG TAB PO SCH (16:51)
[2019-08-09] MEDS: POTASSIUM CHLORIDE 10MEQ EA PO SCH (16:51)
[2019-08-09] MEDS: WARFARIN SOD 5 MG TAB PO SCH (16:51)
[2019-08-09] MEDS: ACETAMINOPHEN 325 MG TAB PO PRN (18:24)
[2019-08-09] MEDS ORDERED: FUROSEMIDE INJ 10 MG/ML 4 ML VIAL IV SCH (21:00)
[2019-08-09] MEDS: SIMVASTATIN 20 MG TAB PO SCH (21:06)
[2019-08-09] MEDS: TRAMADOL HCL 50 MG TAB PO PRN (22:33)
[2019-08-10] VITALS (26 sets, daily range): BP systolic 93–144; BP diastolic 61–81
[2019-08-10] MEDS: MEROPENEM 1GM 100 ML IV SCH ×3 (02:00→17:41)
[2019-08-10 05:24] LABS: BASOPHILS % 0.1 % (0.0-1.0); EOSINOPHILS % 0.3 % (0.0-6.0); HEMATOCRIT 32.6 % (38.2-49.6); LYMPHOCYTES # (AUTO) 1.3 (1.0-3.2); LYMPHOCYTES % 8.7 % (18.0-39.1); MEAN CORPUSCULAR HEMOGLOBIN 26.5 pg (28-32); MEAN CORPUSCULAR HGB CONC 30.7 g/dL (31-35); MEAN CORPUSCULAR VOLUME 86.2 fL (81-99); MONOCYTES # (AUTO) 0.6 (0.2-0.8); MONOCYTES % 3.9 % (4.4-11.3); NEUTROPHILS % 85.8 % (38.7-80.0); PLATELET COUNT 213 x10e3/uL (140-360); RED BLOOD COUNT 3.78 x10e6/uL (4.3-5.7); RED CELL DISTRIBUTION WIDTH 16.7 % (11.7-14.4)
[2019-08-10 05:30] LABS: INR 1.69; PROTHROMBIN TIME 21.1 seconds (11.9-14.5)
[2019-08-10] MEDS: FUROSEMIDE 20 MG TAB PO SCH (05:35)
[2019-08-10] MEDS: TRAMADOL HCL 50 MG TAB PO PRN ×2 (05:35→21:28)
[2019-08-10 05:39] LABS: ALANINE AMINOTRANSFERASE 20 IU/L (0-55); ALBUMIN 1.6 g/dL (3.5-5.0); ALBUMIN/GLOBULIN RATIO 0.4 (0.8-2.0); ALKALINE PHOSPHATASE 91 IU/L (40-150); ANION GAP 11.7 mmol/L (8-16); BLOOD UREA NITROGEN 35 mg/dL (7-26); BUN/CREATININE RATIO 38 (6-25); CARBON DIOXIDE 26 mmol/L (22-29); CHLORIDE 105 mmol/L (98-107); CREATININE, SERUM 0.91 mg/dL (0.72-1.25); EST GLOMERULAR FILTRATION RATE > 60 ML/MIN (60-); GLUCOSE 103 mg/dL (74-118); POTASSIUM 3.7 mmol/L (3.5-5.1); SODIUM 139 mmol/L (136-145)
[2019-08-10 06:53] LABS: FERRITIN 946.87 ng/mL (21.81-274.66)
[2019-08-10] MEDS: ASPIRIN 325 MG TAB PO SCH (07:59)
[2019-08-10] MEDS: PANTOPRAZOLE SOD 40 MG TABEC PO SCH (07:59)
[2019-08-10] MEDS: POTASSIUM CHLORIDE 10MEQ EA PO SCH ×2 (08:00→17:41)
[2019-08-10] MEDS: ACETAMINOPHEN 325 MG TAB PO PRN (10:41)
--- NOTE | 2019-08-10 11:56 | NUR ---
SPOKE WITH MS SARANYA LANDIS APS WORKER [phone], SHE STATES THE GRANDSON HAS BEEN TOLD HE IS NOT ALLOWED TO TAKE THE GRANDFATHER HOME. SHE STATES WHILE IN THE FACILITY THEY WERE ATTEMPTING TO REMOVE HIM AND TAKE HIM HOME TO HAVE THIER HOME REMOLDED TO CARE FOR PT, PT WAS CONFUSED AT FACILITY BUT ADAMANT HE DID NOT WANT TO GO WITH THE GRANDSON. SHE STATES THEY WERE WAITING ON A PSYCH EVAL TO DETERMINE COGNITION. SHE STATES THE PT HAS A LIVING TRUST SO HE IS PAYING FOR HIS CARE OUT OF THE TRUST AND THE GRANDSON IS WANTING TO USE THAT MONEY TO REMODEL HIS HOME. SHE ASKED THAT WE GET COGNITION EVAL HERE. AND STATES THE AGREEMENT WAS THE GIRLFRIEND WAS HIS SURGICAL RN FOR PAST 20 YEARS AND HIS SON WAS BERNARDINO AND IS NOW . SHE STATES IT IS AN UNSAFE DISCHARGE TO DISCHARGE HOME HE HAS TO HAVE FACILITY PLACEMENT FOR CARE. STAFF NUCLEAR WEAPONS OFFICER SARANYA STATES SHE IS GOING TO DISCUSS WITH NODE JS DEVELOPER AND CALL BACK BUT IN HER OPINION TO NOT LET THE PATIENT AGREE TO OR SIGN ANY DOCUMENTS FOR THE GRANDSON. CALLED NURSE AND ASKED FOR PSYCH TO EVAL THE PT. WILL CALL AND GET HAZEL INVOLVE AND CONTINUE TO MONITOR.
--- NOTE | 2019-08-10 14:00 | NUR ---
Referral by SW. Pt's girlfriend, Jessica, at bedside. Pt appeared confused. Steeping Press Operator provided pastoral presence, hospitality, and supportive listening. Steeping Press Operator informed pt's girlfriend of the scope of [employer] and availability. Will follow as able. HAZEL OLIVEIRA Steeping Press Operator Spiritual Care Department O: [phone]
--- NOTE | 2019-08-10 14:07 | Consultation ---
DATE OF CONSULTATION: Wound Consultation Thank you, Dr. Mcgee, for asking me to see this patient. HISTORY OF PRESENT ILLNESS: An 83-year-old cachectic, fragile, deconditioned patient with multiple medical problems including sepsis, congestive heart failure, COPD, hypertension, bed-bound status, has multiple deep tissue injury and ulceration. Wound consult was called. The patient is kyphotic with protruding thoracic spine. He has DTI on the side of the back around the spine also to both buttock more on the right buttock with unstageable wounds. The patient is awake, responds to questions. MEDICATIONS: Meropenem, hydralazine, tramadol, simvastatin, warfarin, pantoprazole, furosemide. ALLERGIES: LENORE INHIBITORS. PHYSICAL EXAMINATION: VITAL SIGNS: Blood pressure 122/72, pulse of 60, temperature of 97.8, height 6 feet, weight 141 pounds. HEENT: Normal. NECK: No JVD. LUNGS: Bilateral air entry, diminished. CVS: Normal. ABDOMEN: Soft. LOWER EXTREMITIES: No edema. SKIN: Bilateral buttocks, the patient has deep tissue injury and skin breakdown on the right buttock consistent with unstageable wound and multiple deep tissue injury on the back and bruise on the left leg. ASSESSMENT: Bilateral buttock deep tissue injury with unstageable wound. Multiple deep tissue injury to the thoracic area. Severe deconditioning, cachectic. PLAN: Give padding to the back to protect the spine and Mepilex to the buttock. Discussed with patient's nurse and closely monitor. Right buttock wound may get worse due to the deep tissue injury and offload. Thank you for consultation. We will follow up. MD PILAR Kim/ADORE /[id number]
--- NOTE | 2019-08-10 14:22 | Progress Note ---
DATE: SUBJECTIVE: The patient describes some dyspnea. He has less dyspnea. He does not have chest pain or fevers. PHYSICAL EXAMINATION: VITAL SIGNS: The blood pressure is 115/62 and saturation is 98%. HEENT: Shows no facial swelling or erythema. CARDIAC: Reveals a regular rate and rhythm with normal S1 and S2. LUNGS: Auscultation of lungs reveals decreased breath sounds at left base. ABDOMEN: Soft and nontender. There is no rebound or guarding. EXTREMITIES: Shows no leg edema or calf tenderness. There is no cyanosis or clubbing. SKIN: Shows no rashes. NEUROLOGICAL: Shows no focal abnormalities. LABORATORY DATA: BUN to creatinine ratio is normal. White blood cell count is 15.1 and the hemoglobin is 10. The platelet count is 213. IMPRESSION: 1. Eudjj-as-fqymttl systolic congestive heart failure. 2. Urinary tract infection with extended-spectrum beta-lactamase producing Proteus and severe sepsis, present on admission. 3. Aspiration pneumonia. 4. Atrial fibrillation. 5. Metabolic encephalopathy. PLAN: 1. The patient will be continued on antibiotics. 2. Switch to IV Lasix 20 mg IV q.12. 3. Continue to monitor electrolytes and CBC. 4. Continue palliative care. Favian Cantu MD [facility]/ADORE /[id number]
--- NOTE | 2019-08-10 17:00 | NUR ---
placed duoderm to both cheeks under nasal cannula tubing
[2019-08-10] MEDS: WARFARIN SOD 5 MG TAB PO SCH (17:41)
[2019-08-10] MEDS: ASCORBIC ACID 500 MG TAB PO SCH (17:41)
[2019-08-10] MEDS: MEGESTROL ACETATE 40 MG TAB PO SCH (17:41)
[2019-08-10] MEDS: MAGNESIUM OXIDE 400 MG TAB PO SCH (17:41)
[2019-08-10] MEDS: OYST-CAL-D 500MG TABLET PO SCH (17:41)
[2019-08-10] MEDS: FUROSEMIDE INJ 10 MG/ML 2 ML VIAL IV SCH (17:41)
--- NOTE | 2019-08-10 18:37 | NUR ---
Radha Godinez [phone]
[2019-08-10] MEDS: SIMVASTATIN 20 MG TAB PO SCH (21:29)
[2019-08-11] VITALS (21 sets, daily range): BP systolic 105–151; BP diastolic 62–90
[2019-08-11] MEDS: MEROPENEM 1GM 100 ML IV SCH ×3 (03:12→18:00)
[2019-08-11] MEDS: ALBUTEROL/IPRATROPIUM 3 ML NEB NEB PRN ×2 (03:35→07:40)
[2019-08-11] MEDS: TRAMADOL HCL 50 MG TAB PO PRN (03:44)
[2019-08-11 05:13] LABS: BASOPHILS % 0.1 % (0.0-1.0); EOSINOPHILS % 0.3 % (0.0-6.0); HEMATOCRIT 32.2 % (38.2-49.6); HEMOGLOBIN 9.7 g/dL (14.0-18.0); LYMPHOCYTES # (AUTO) 2.1 (1.0-3.2); MEAN CORPUSCULAR HEMOGLOBIN 26.4 pg (28-32); MEAN CORPUSCULAR HGB CONC 30.1 g/dL (31-35); MEAN CORPUSCULAR VOLUME 87.5 fL (81-99); MONOCYTES # (AUTO) 0.5 (0.2-0.8); MONOCYTES % 3.7 % (4.4-11.3); NEUTROPHILS # (AUTO) 10.6 (2.1-6.9); NEUTROPHILS % 78.9 % (38.7-80.0); PLATELET COUNT 200 x10e3/uL (140-360); RED BLOOD COUNT 3.68 x10e6/uL (4.3-5.7); RED CELL DISTRIBUTION WIDTH 16.5 % (11.7-14.4)
[2019-08-11 05:28] LABS: INR 2.67; PROTHROMBIN TIME 30.5 seconds (11.9-14.5)
[2019-08-11 05:36] LABS: ALANINE AMINOTRANSFERASE 17 IU/L (0-55); ALBUMIN 1.6 g/dL (3.5-5.0); ALBUMIN/GLOBULIN RATIO 0.4 (0.8-2.0); ALKALINE PHOSPHATASE 74 IU/L (40-150); ANION GAP 10.5 mmol/L (8-16); BLOOD UREA NITROGEN 29 mg/dL (7-26); BUN/CREATININE RATIO 37 (6-25); CALCIUM 8.9 mg/dL (8.4-10.2); CARBON DIOXIDE 27 mmol/L (22-29); CHLORIDE 106 mmol/L (98-107); CREATININE, SERUM 0.78 mg/dL (0.72-1.25); EST GLOMERULAR FILTRATION RATE > 60 ML/MIN (60-); GLUCOSE 108 mg/dL (74-118); POTASSIUM 3.5 mmol/L (3.5-5.1); SODIUM 140 mmol/L (136-145)
[2019-08-11 06:13] LABS: MAGNESIUM 1.7 MG/DL (1.3-2.1); PHOSPHORUS 2.1 MG/DL (2.3-4.7)
[2019-08-11] MEDS: FUROSEMIDE INJ 10 MG/ML 2 ML VIAL IV SCH ×2 (06:29→18:00)
--- NOTE | 2019-08-11 06:40 | NUR ---
SPOKE TO ROB WITH SIZE GAITAN. ORDERED SPECIALITY BED AT THIS TIME BECAUSE IT WAS NOT ALREADY ORDERED. CONFIRMATION NUMBER [id number].
--- NOTE | 2019-08-11 09:30 | NUR ---
Pt unavailable at this time. PT performing procedure at bedside. I will follow up as able. HAZEL OLIVEIRA [facility] Care Department O: [phone]
[2019-08-11] MEDS: MEGESTROL ACETATE 40 MG TAB PO SCH ×2 (10:05→17:00)
[2019-08-11] MEDS: MULTIVITAMINS/MINERALS TAB PO SCH (10:05)
[2019-08-11] MEDS: MAGNESIUM OXIDE 400 MG TAB PO SCH ×2 (10:05→17:00)
[2019-08-11] MEDS: OYST-CAL-D 500MG TABLET PO SCH ×2 (10:05→17:00)
[2019-08-11] MEDS: POTASSIUM CHLORIDE 10MEQ EA PO SCH ×2 (10:05→17:00)
[2019-08-11] MEDS: ASPIRIN 325 MG TAB PO SCH (10:05)
[2019-08-11] MEDS: ASCORBIC ACID 500 MG TAB PO SCH ×2 (10:05→17:00)
[2019-08-11] MEDS: ZINC SULFATE 220 MG CAP PO SCH (10:05)
[2019-08-11] MEDS: PANTOPRAZOLE SOD 40 MG TABEC PO SCH (10:05)
--- NOTE | 2019-08-11 10:07 | NUR ---
SPOKE WITH GRANDGUERA DURAN [phone] HE IS LEGAL NEXT OF KIN THEREFOR DECISION MAKER ABOUT HOSPICE ORDER. HE STATES HIS FATHER JUST AND THEY USED [facility] AND WANT TO USE THEM AGAIN, FILED CHOICE IN CHART AND FAXED CLINICALS TO COMPANY FOR REFERRAL.
--- NOTE | 2019-08-11 10:09 | NUR ---
CALLED AND UPDATED MS SARANYA LANDIS APS WORKER [phone] PLAN IS TO GO HOME WITH GRANDSON WITH [facility]
--- NOTE | 2019-08-11 13:43 | NUR ---
FAMILY HAS SIGNED ALL CONSENTS AND PAPERWORK WITH [facility], EQUIPMENT WILL BE DELIVERED TO HOME AND [facility] WILL AGRICULTURAL EQUIPMENT DESIGN ENGINEER PATIENT AT 6PM, SPOKE WITH ELMA MALIK AND SHE STATES IT IS OK, IF ANY ISSUES CON[facility]CT [facility] HUBERT AT [phone]
[2019-08-11] MEDS ORDERED: WARFARIN SOD 3 MG TAB PO SCH (17:00)
--- NOTE | 2019-08-11 17:54 | Progress Note ---
DATE: SUBJECTIVE: The patient is confused. He complains of pain, but has difficulty specifying the exact place. Hospice has been called and they are making arrangements for outpatient hospice. PHYSICAL EXAMINATION: VITAL SIGNS: The patient is afebrile. The vital signs are stable. HEENT: Shows no facial swelling or erythema. CARDIAC: Reveals regular rate and rhythm. Normal S1 and S2. LUNGS: Auscultation of lungs shows decreased breath sounds at the bases, more on the left than the right. ABDOMEN: Soft, nontender. There is no rebound or guarding. EXTREMITIES: Show 1 to 2+ edema. IMPRESSION: 1. Moderate protein calorie malnutrition. 2. Acute on chronic systolic congestive heart failure. 3. Urinary tract infection with severe sepsis, present on admission. PLAN: 1. Prognosis is very poor. 2. Arrangements have been made for hospice. Apparently, the patient will be discharged with hospice and home with the family. MD PAOLA Charles/ADORE /[id number]
[2019-08-11] MEDS: SIMVASTATIN 20 MG TAB PO SCH (22:00)
[2019-08-12] VITALS (10 sets, daily range): BP systolic 106–143; BP diastolic 65–96
[2019-08-12] MEDS: MEROPENEM 1GM 100 ML IV SCH ×2 (01:50→09:31)
--- NOTE | 2019-08-12 02:00 | NUR ---
Dr. Gregory Davila rounded on Patient. He was informed that patient is supposed to go home with hospice at this time. He stated that if the family or Patient still want to have a PEG tube placed the nurse needs to page his office and inform him.
[2019-08-12 05:15] LABS: BASOPHILS % 0.1 % (0.0-1.0); EOSINOPHILS % 0.3 % (0.0-6.0); HEMATOCRIT 34.1 % (38.2-49.6); HEMOGLOBIN 10.2 g/dL (14.0-18.0); LYMPHOCYTES % 15.9 % (18.0-39.1); MEAN CORPUSCULAR HGB CONC 29.9 g/dL (31-35); MEAN CORPUSCULAR VOLUME 86.8 fL (81-99); MONOCYTES # (AUTO) 0.6 (0.2-0.8); MONOCYTES % 4.6 % (4.4-11.3); NEUTROPHILS # (AUTO) 9.7 (2.1-6.9); NEUTROPHILS % 78.3 % (38.7-80.0); PLATELET COUNT 201 x10e3/uL (140-360); RED BLOOD COUNT 3.93 x10e6/uL (4.3-5.7); RED CELL DISTRIBUTION WIDTH 16.3 % (11.7-14.4)
[2019-08-12 05:27] LABS: INR 3.45; PROTHROMBIN TIME 37.5 seconds (11.9-14.5)
[2019-08-12] MEDS: FUROSEMIDE INJ 10 MG/ML 2 ML VIAL IV SCH (05:30)
[2019-08-12 05:36] LABS: ANION GAP 9.6 mmol/L (8-16); BLOOD UREA NITROGEN 25 mg/dL (7-26); BUN/CREATININE RATIO 33 (6-25); CALCIUM 9.4 mg/dL (8.4-10.2); CARBON DIOXIDE 27 mmol/L (22-29); CHLORIDE 105 mmol/L (98-107); CREATININE, SERUM 0.75 mg/dL (0.72-1.25); EST GLOMERULAR FILTRATION RATE > 60 ML/MIN (60-); GLUCOSE 93 mg/dL (74-118); POTASSIUM 3.6 mmol/L (3.5-5.1); SODIUM 138 mmol/L (136-145)
[2019-08-12] MEDS: PANTOPRAZOLE SOD 40 MG TABEC PO SCH (07:30)
--- NOTE | 2019-08-12 07:39 | NUR ---
WAS CONTACTED LAST NIGHT AT 630 AND TOLD EQUIPMENT NOT DELIVERED BY NURSE. CONTACTED HUBERT AT [facility] AND HE STATES THE EQUIPMENT WAS DELIVERED BUT THE GRANDDAUGHTER HAD LEFT TO GO SHOPPING. NOTIFIED MEDICAL AFFAIRS MANAGER SHE STATED SHE WOULD HAND OFF INFORMATION TO FOLLOWING MEDICAL AFFAIRS MANAGER, SOON SHE SEES PT TODAY AND CLEARS FOR DISCHARGE I WILL NOTIFY HUBERT AND HE WILL SET UP DISCHARGE.
[2019-08-12] MEDS ORDERED: RISPERIDONE 0.5 MG TAB PO PRN (08:15)
[2019-08-12] MEDS ORDERED: HALOPERIDOL LACTATE 5 MG/ML VIAL IM PRN (08:15)
[2019-08-12] MEDS: OYST-CAL-D 500MG TABLET PO SCH (09:00)
[2019-08-12] MEDS: ZINC SULFATE 220 MG CAP PO SCH (09:00)
[2019-08-12] MEDS: ASPIRIN 325 MG TAB PO SCH (09:00)
[2019-08-12] MEDS: MEGESTROL ACETATE 40 MG TAB PO SCH (09:00)
[2019-08-12] MEDS: ASCORBIC ACID 500 MG TAB PO SCH (09:00)
[2019-08-12] MEDS: POTASSIUM CHLORIDE 10MEQ EA PO SCH (09:00)
[2019-08-12] MEDS: MULTIVITAMINS/MINERALS TAB PO SCH (09:00)
[2019-08-12] MEDS: MAGNESIUM OXIDE 400 MG TAB PO SCH (09:00)
--- NOTE | 2019-08-12 10:21 | Progress Note ---
DATE: SUBJECTIVE: Due to practical problems, the patient could not be discharged last night. He is pending discharge with hospice this morning. PHYSICAL EXAMINATION: VITAL SIGNS: The patient is afebrile. The vital signs are stable. HEENT: No facial swelling or erythema. CARDIAC: Regular rate and rhythm with normal S1, S2. ABDOMEN: Soft, nontender. There is no rebound or guarding. EXTREMITIES: No leg edema or calf tenderness. There is no cyanosis or clubbing. SKIN: No rashes. IMPRESSION: 1. An acute on chronic systolic congestive heart failure. 2. Severe cardiomyopathy with ejection fraction 15%-20%. 3. 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 4. Moderate protein-calorie malnutrition. 5. Urinary tract infection with severe sepsis, present on admission. 6. Recurrent aspiration pneumonitis. PLAN: 1. The patient is scheduled for discharge home with hospice. 2. Continue current antibiotics for now. 3. Continue current anticoagulation. MD PAOLA Charles/ADORE /[id number]
--- NOTE | 2019-08-12 13:52 | NUR ---
SPOKE WITH TELECOMMUNICATIONS SWITCH TECHNICIAN GIVEN GO AHEAD TO SPEAK WITH HOSPICE AND SET UP TRANSPORT, CALLED HUBERT WITH [facility] AND HE CAN SET UP AT 3PM, GRANDDAUGHTER NOTIFIED AND SHE WILL BE THERE AND READY FOR PT. ALL EQUIPMENT IS IN PLACE. IMM IS STILL GOOD FROM VERBAL GIVEN TO GRANDSON. PT TO DISCHARGE HOME ON HOSPICE TODAY.
--- NOTE | 2019-08-12 14:47 | Consultation ---
DATE OF CONSULTATION: Psychiatric Consultation REASON FOR CONSULTATION: To evaluate the patient's cognitive evaluation. As per the medical record, the patient has history of coronary artery bypass graft, pacemaker, and atrial fibrillation. Upon evaluation today, the patient is found to be in the room. He is alert and awake. He is thin-looking. He is oriented to self, he thinks he is at home. He does not know his health issues that he has. He does not know the current president. The patient claimed he has been eating well. He denies depression or anxiety. He denies suicidal ideation. He denies any hallucination. He denies any passive wish. He is not agitated at this time. When asked if the patient agrees to have his grandson health making medical decision for him, the patient agreed to this. As per case management, grandson is next of kin. His son and grandson wants to takeover medical decision for the patient. PAST PSYCHIATRIC HISTORY: There is no past psychiatric history, although possible dementia. He denies past suicide attempts. Denies alcohol and drug use. FAMILY HISTORY: Unknown. SOCIAL HISTORY: The patient is living at the [facility] prior to his hospitalization at [facility]. MENTAL STATUS EXAM: The patient is elderly male. He is alert, awake, and oriented to self only. He denies any depression. Denies anxiety. He denies any hallucination. He is also oriented to some situation. He is calm and not agitated. His mood is fair. Affect is flat. Psychomotor state is passive. He is not paranoid. He denies any hallucination. Memory appears to be grossly impaired. Insight and judgment are limited. CURRENT MEDICATIONS: 1. Furosemide. 2. . 3. Simvastatin. 4. Sulfate. 5. Multivitamin. 6. Pantoprazole. 7. Aspirin. 8. . 9. Tramadol. 10. Acetaminophen. 11. Warfarin. 12. Ascorbic acid. 13. Magnesium oxide. 14. Calcium carbonate. 15. Megestrol. 16. Potassium chloride. 17. Hydralazine. 18. Ondansetron. CURRENT LABORATORY DATA: WBC 12.34, RBC 3.93, hemoglobin 10.2, hematocrit 34.1, and platelets 201. Chemistry; sodium 138, potassium 3.6, chloride 105, CO2 27, BUN 25, and creatinine 0.75. ASSESSMENT: 1. Adjustment disorder with mixed mood. 2. dementia. PLAN: 1. Supportive therapy. 2. The patient verbalized that he wants his son-in-law to takeover care for him. 3. As per case management, the family members have considered hospice for the patient. 4. Monitor for agitation and had small dose of Risperdal and Haldol. Thank you for this consultation. Dictated by Hetal Majano PA-C Trevor Mahoney MD [facility]/MODL /[id number]
--- NOTE | 2019-08-12 17:03 | Progress Note ---
DATE: 08/12/2019 Psychiatric Progress Note SUBJECTIVE: The patient evaluated and events noted. The patient was found to be in the room with a friend. He is alert, awake, and oriented to self and place and is able to identify correctly his friend who is in the room next to him. He is calm. He appears to be doing better and oriented to situation. He denies any anxiety. He denies any depression. Denies any hallucination. He is not verbalizing any concern at this time. He denies any hallucination as well. He is not getting any p.r.n. medication. ASSESSMENT: 1. Adjustment disorder with mixed mood. 2. Dementia. PLAN: 1. Continue with p.r.n. Risperdal. 2. Continue p.r.n. Haldol. 3. Monitor for mood and agitation. Dictated by Hetal Majano PA-C Trevor Mahoney MD [facility]/MODL /[id number]
--- NOTE | 2019-08-13 13:28 | Discharge Summary ---
CONSULTING PHYSICIANS: Dr. Noe Romero, Dr. Favian Cantu, Dr. Naren Davila, Dr. Shailesh Torres, and Dr. Victorino Earl. CHIEF COMPLAINT: Septic shock. ALLERGIES: LENORE INHIBITORS. HOSPITAL COURSE: This is an 83-year-old with history of coronary artery bypass and atrial fibrillation, got admitted from [facility] for complaints of altered mental status and refusing to eat. 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 He also has arterial thrombus that required prolonged treatment with anticoagulants. He has had recurrent pleural effusions and has had multiple thoracentesis in the past. On admission, he was found to have urinary tract infection, ESBL, and got treated with IV Merrem. The patient has a very poor prognosis and the family and the patient decided for hospice care at home under hospice [facility]. His vital signs includes temperature is 98.8, heart rate is 68, blood pressure is 133/70, respiratory rate is 21, and oxygen saturation is 100% on oxygen at 2 L. HOME MEDICATIONS: Norvasc 10 mg daily, aspirin 325 mg daily, doxazosin 8 mg at bedtime, Nexium 40 mg b.i.d., Lasix 20 mg b.i.d., hydrochlorothiazide 25 mg p.o. daily, losartan 100 mg p.o. daily, simvastatin 20 mg at bedtime, tramadol 50 mg q.6 hours as needed, and Coumadin 5 mg daily. PHYSICAL EXAMINATION: GENERAL: No acute distress. NECK: Supple. LUNGS: Decreased breath sounds, on continuous oxygen. CARDIOVASCULAR: Paced rhythm. ABDOMEN: Soft and nontender. EXTREMITIES: Decreased range of motion. SKIN: The patient has a sacral stage II and bilateral greater toe with arterial ulcers. NEUROLOGIC: Alert and oriented x2. LABORATORY DATA: On 08/12/2019, shows WBC 12.3, hemoglobin 10.2, hematocrit 34.1, platelets 201, sodium 138, potassium 3.6, chloride 105, CO2 27, BUN 25, creatinine 0.75, and glucose 93. DISCHARGE DIAGNOSES: 1. Chronic systolic congestive heart failure. 2. Severe cardiomyopathy with an ejection fraction of 20%. 3. Thrombosis of the aorta, on Coumadin. 4. Moderate protein-calorie malnutrition. 5. Chronic obstructive pulmonary disease. 6. Atrial fibrillation. 7. The patient is transferred under home hospice. Dictated by Shanthi Witt, [employer] MD SANTOS Gonzalez/ADORE /[id number]
== END 2019-08-12 16:10 | disposition hospice, home (50) | DRG 871 ==
LOC: ER 10:48 → ERHOLD 12:07 → ICU 14:01
PROVIDERS: ADMIT Internal Medicine; ATTEND Internal Medicine
PROC: 02HV33Z Insertion of Infusion Device into Superior Vena Cava, Percutaneous Approach (ICD-10-PCS; principal; 2019-08-08)
PROC: B548ZZA Ultrasonography of Superior Vena Cava, Guidance (ICD-10-PCS; 2019-08-08)
DX: A41.9 Sepsis, unspecified organism (principal); I50.23 Acute on chronic systolic (congestive) heart failure; G93.41 Metabolic encephalopathy; R65.21 Severe sepsis with septic shock; R57.0 Cardiogenic shock; J69.0 Pneumonitis due to inhalation of food and vomit; I42.9 Cardiomyopathy, unspecified; N30.01 Acute cystitis with hematuria; N17.9 Acute kidney failure, unspecified; L97.419 Non-pressure chronic ulcer of right heel and midfoot with unspecified severity; E44.0 Moderate protein-calorie malnutrition; Z68.1 Body mass index [BMI] 19.9 or less, adult; I48.19 Other persistent atrial fibrillation; Z16.12 Extended spectrum beta lactamase (ESBL) resistance; I48.91 Unspecified atrial fibrillation; N28.9 Disorder of kidney and ureter, unspecified; Z95.1 Presence of aortocoronary bypass graft; J44.9 Chronic obstructive pulmonary disease, unspecified; Z95.810 Presence of automatic (implantable) cardiac defibrillator; I11.0 Hypertensive heart disease with heart failure; E66.9 Obesity, unspecified; Z68.30 Body mass index [BMI] 30.0-30.9, adult; L89.152 Pressure ulcer of sacral region, stage 2; L97.529 Non-pressure chronic ulcer of other part of left foot with unspecified severity; L97.519 Non-pressure chronic ulcer of other part of right foot with unspecified severity; Z79.01 Long term (current) use of anticoagulants; Z74.01 Bed confinement status; L89.326 Pressure-induced deep tissue damage of left buttock; L89.316 Pressure-induced deep tissue damage of right buttock; L89.106 Pressure-induced deep tissue damage of unspecified part of back; F43.23 Adjustment disorder with mixed anxiety and depressed mood; F03.90 Unspecified dementia, unspecified severity, without behavioral disturbance, psychotic disturbance, mood disturbance, and anxiety; B96.4 Proteus (mirabilis) (morganii) as the cause of diseases classified elsewhere; D64.9 Anemia, unspecified
CPT/HCPCS: 36415; 71045; 71250; 80048; 80053; 81001; 82140; 82550; 82553; 82607; 82728; 82746; 82948; 83540; 83605; 83735; 83880; 84100; 84466; 84484; 85025; 85045; 85610; 87040; 87071; 87086; 87186; 87205; 87400; 93005; 93306; 93925; 94640; 99285; J1940; J2543; J3370; J3480; J7030